=== PATIENT | female | born 1955 | race Caucasian/White ===

== ENCOUNTER 2017-09-22 05:39 | Inpatient (IN) | payer MEDICARE ==
[2017-09-22 07:38] LABS: #Basophils 0.1 thou/uL (0.0-0.2); #Eosinphils 0.4 thou/uL (0.0-0.7); #Lymphocytes 3.4 thou/uL (1.20-3.40); #Monocytes 0.5 thou/uL (0.11-0.59); #Neutrophils 6.6 thou/uL (1.40-6.50); %Basophils 0.9 % (0.0-1.0); %Eosinophils 3.8 % (0.0-10.0); %Lymphocytes 30.9 % (21.0-51.0); %Monocytes 4.3 % (0.0-10.0); Hemoglobin 12.5 g/dL (12.0-16.0); Mean Corpuscular Hemoglobin 30.4 pg (27.0-31.0); Mean Corpuscular Volume 92.2 fl (81.0-99.0); Platelet Count 185 thou/uL (130-400); RBC Distribution Width 12.8 % (11.5-14.5); Red Blood Cell (RBC) Count 4.11 mill/uL (4.20-5.40); White Blood Cell (WBC) Count 11.1 thou/uL (4.8-10.8)
[2017-09-22 08:01] LABS: ALT (SGPT) 9 U/L (8-55); AST (SGOT) 9 U/L (5-34); Albumin 3.5 g/dL (3.5-5.0); Alkaline Phosphatase 83 U/L (40-150); Anion Gap 13 mmol/L (10-20); BUN (Urea Nitrogen) 20 mg/dL (9.8-20.1); Bilirubin, Total 0.3 mg/dL (0.2-1.2); Calc. Creatinine Clearance 0 mL/min (70-130); Calcium 9.7 mg/dL (7.8-10.44); Carbon Dioxide 22 mmol/L (22-29); Chloride 105 mmol/L (98-107); Estimated GFR-MDRD 49; Globulin 2.7 g/dL (2.4-3.5); Glucose 210 mg/dL (70-105); Potassium 3.9 mmol/L (3.5-5.1); Protein, Total 6.2 g/dL (6.0-8.3); Sodium 136 mmol/L (136-145)
[2017-09-22 08:29] LABS: Bilirubin Negative (Negative); Blood, Urine Negative (Negative); Clarity CLEAR (Clear); Glucose, Urine (Dipstick) >=1000 mg/dL (Negative); Leukocyte Negative (Negative); Nitrite Negative (Negative); Protein, Urine (Dipstick) Negative (Neg-Trace); Specific Gravity, Urine 1.035 (1.002-1.036); Urobilinogen 0.2 mg/dL (0.2-1.0)
--- NOTE | 2017-09-22 09:23 | CT ---
FINAL REPORT CT ARTERIOGRAM ABDOMEN AND PELVIS WITH IV CONTRAST AND 3D MIP IMAGING CT ARTERIOGRAM RUNOFF BILATERAL LOWER EXTREMITIES WITH IV CONTRAST AND 3D MIP IMAGING: DATE: 09/22/17. TIME: Performed on an emergency basis at 0751 hours. HISTORY: Vascular disease. Decreased circulation. Bilateral leg pain. FINDINGS: Small adenoma arises from the body of the right adrenal gland. Parenchymal scarring, small cysts, an d dystrophic calcifications are associated with the right kidney. There are degenerative changes of the lumbar spine. Good contrast flow is demonstrated within the abdominal aorta. Just below the level of the renal art eries is an area of mild narrowing, less than 50%, due to the atherosclerosis and calcification. Vis ceral arteries are patent. Scattered calcification is present within the arterial structures. RIGHT: Calcification and noncalcified plaque is present. There is a moderate linked segment of moderate anton rowing, estimated at 70%, within the proximal right femoral artery. There is multifocal moderate gerardo noses along the length of the femoral artery. Distally, there is near-complete occlusion of the femor al artery with a thin string of contrast. Some collateral flow also supports contrast within the pop liteal artery where there is mild narrowing. Runoff to the right ankle is primarily via the dorsalis pedis artery. LEFT: The iliac artery is patent. There is long-segment narrowing of the common femoral artery, up to 80%. Long-segment high-grade stenosis of the proximal to mid femoral artery is up to 90%. There is mult ifocal moderate stenosis throughout the distal femoral artery and popliteal artery. Two-vessel runof f to the left ankle is primarily via the dorsalis pedis and peroneal arteries. IMPRESSION: 1. Multifocal high-grade stenosis involving the runoff vessels to each lower extremity, as detailed above. 2. Atherosclerosis. Mild narrowing of the mid abdominal aorta. POS: [facility]
[2017-09-22] MEDS ORDERED: Heparin 5,000 UNITS/ML VIAL ONE (10:28)
[2017-09-22] MEDS ORDERED: Protamine Sulfate 50 MG/5 ML VIAL ONE ×2 (10:28→13:59)
--- NOTE | 2017-09-22 10:35 | RAD ---
CHEST 1 VIEW: HISTORY: Preop. COMPARISON: 12/04/09. FINDINGS: The cardiac silhouette is magnified by projection. Pulmonary vasculature is unremarkable. Mediastin um is midline. There is no lobar consolidation or evidence of pneumothorax. IMPRESSION: No active cardiopulmonary abnormalities are demonstrated. POS: [facility]
[2017-09-22] MEDS ORDERED: CEFAZOLIN/Water 2 GM/20 ML SYRINGE ONE (10:48)
[2017-09-22] MEDS ORDERED: Fentanyl 100 MCG/2 ML VIAL ONE (11:15)
[2017-09-22] MEDS ORDERED: Phenylephrine HCL 10 MG/ML VIAL ONE (11:15)
[2017-09-22] MEDS ORDERED: Promethazine HCl 25 MG/ML VIAL PR PRN (11:25)
[2017-09-22] MEDS ORDERED: Fentanyl 100 MCG/2 ML VIAL SLOW IVP PRN (11:25)
[2017-09-22] MEDS ORDERED: Promethazine HCl 25 MG/ML VIAL IM PRN ×2 (11:25→14:59)
[2017-09-22] MEDS ORDERED: Ondansetron HCl/PF 4 MG/2 ML Vial IVP PRN ×2 (11:25→14:59)
[2017-09-22] MEDS ORDERED: HYDROcodone/Acetaminophen 5/325 mg Tablet PO PRN (11:25)
[2017-09-22] MEDS ORDERED: Acetaminophen 325 MG TAB PO PRN (11:25)
[2017-09-22] MEDS ORDERED: ISOVUE-370 76%-LOCM 1 ML ONE (13:02)
[2017-09-22] MEDS ORDERED: Dexamethasone 20 MG/5 ML VIAL ONE (14:19)
[2017-09-22] MEDS ORDERED: PHENYLEPHRINE-NS 100 MCG/ML 10 ML SYRINGE ONE (14:19)
[2017-09-22] MEDS ORDERED: Glycopyrrolate 0.2 MG/ML 5 ML SYRINGE ONE (14:19)
[2017-09-22] MEDS ORDERED: ePHEDrine/0.9% NaCl/PF SYRINGE 50 mg/10 ml ONE (14:19)
[2017-09-22] MEDS ORDERED: Heparin 10,000 UNITS/ 10 ML VIAL ONE (14:19)
[2017-09-22] MEDS ORDERED: Ondansetron HCl/PF 4 MG/2 ML Vial ONE (14:19)
[2017-09-22] MEDS ORDERED: Propofol 200 MG/20 ML VIAL ONE (14:19)
[2017-09-22] MEDS ORDERED: Lidocaine 1% PF 5 ML VIAL ONE (14:19)
[2017-09-22] MEDS ORDERED: Promethazine HCl 25 MG/ML VIAL SLOW IVP PRN (14:59)
[2017-09-22 16:20] VITALS: BMI 32.8
--- NOTE | 2017-09-22 16:24 | OP ---
DATE OF PROCEDURE: 09/22/2017 PROCEDURES PERFORMED: Urgent left external iliac/common femoral artery to suprageniculate popliteal artery with 6 mm ringed GORE-MERY, left iliofemoral and popliteal artery endarterectomies and four com partment left lower extremity fasciotomy. PREOPERATIVE DIAGNOSES: Peripheral vascular disease with acute left lower extremity ischemia. POSTOPERATIVE DIAGNOSES: Peripheral vascular disease with acute left lower extremity ischemia. SURGEON: Dr. Segundo. ANESTHESIA: General endotracheal anesthesia. INDICATIONS: The patient is a 62-year-old diabetic woman, who about 4-5 months ago underwent what yousuf leon describes as a stenting procedure in her left leg, rest pain, and discoloration of her left fifth t oe. Yesterday evening after sitting for some time, she tried to stand and found that her left leg wa s paresthetic and weak and over the course of the night this morning that progressed with redevelopme nt of purplish discoloration of her left toe. She was found to have temperature demarcation in her f oot and diminished pulses in that foot consistent with acute ischemia. CT angiography demonstrated o cclusion of her superficial femoral artery with reconstitution of the disease, suprageniculate poplit eal artery. FINDINGS: Extensive plaque in the distal external iliac and common femoral arteries as well as the s uprageniculate popliteal artery. Postoperatively, there were strong Doppler signals in the dorsalis pedis and posterior tibial. NARRATIVE REPORT: After informed consent was obtained, the patient was taken to the operating room a nd placed in supine position on the operating table. After induction of general anesthesia, the felecia ent's lower extremities were prepped and draped in sterile fashion. An oblique incision was made abo ut a fingerbreadth below and parallel to the left groin crease. The incision was carried through the subcutaneous tissue with electrocautery. The superficial femoral artery was identified and then fol lowed along the plane of Leriche deep to the inguinal ligament exposing the external iliac artery whe re heavy plaquing got less prominent. The wound was packed off and then an incision was made on the medial aspect of the distal left thigh. The popliteal space was entered and the popliteal artery was identified and then followed down to where it became relatively soft as about the level of the knee joint or just a little above. The patient was heparinized and after adequate circulation time of hep memo, proximal and distal control was established on the popliteal artery, it was opened to the soft spot and the incision sequentially extended with Gloria scissors and an 11 blade scalpel. Heavy plaqu ing in the vessel necessitated endarterectomy, plaque was everted, plaque was teased off of the vesse l wall and then everted from the vessel proximally and distally, 6 mm ringed GORE-MERY graft was broug ht to the field. It was generously beveled and anastomosed in the side to the popliteal artery with running 5-0 Prolene suture. It was then passed through the subsartorial tunnel with a tunneler devic e after ascertaining that it had adequate backbleeding and flushed adequately. The proximal and dist al control was then established on the femoral system, the common femoral artery was opened and the a rteriotomy extended proximally. The plaque had to be extracted from the common femoral and distal ex ternal iliac as well and the graft was then trimmed to length with a generous spatulation and anastom osed there with running Prolene suture. The vessels are forward and backbled. The suture line was s ecured and antegrade flows allowed first into the profunda then the SFA and then the graft. Protamin e was administered and the wound was packed off about a handbreadth below the knee. Incisions were m evans medially and laterally on the lower leg. The anterolateral compartments were entered and the fas smita incised and extending it about a scissor length proximally and distally. The superficial posteri or compartment fascia was then incised in similar fashion. Electrocautery was used to dissect throug h the musculature to expose the fascia of the deep posterior compartment, which was then incised. Th ere was no bulging of the posterior compartment musculature, but there was some minimal bulging of th e anterolateral compartment musculature. There was sufficient laxity on the subcutaneous tissue and skin to allow for loose closure with widely spaced interrupted nylon sutures. When hemostasis was ad equate, the popliteal and groin incisions were closed in layers. The subcutaneous and subcuticular V icryl with this skin closure being reinforced with running nylon. The wounds were dressed and the pa tient was taken to the recovery area in stable condition.
--- NOTE | 2017-09-22 16:46 | RAD ---
CHEST ONE VIEW: History: Central line placement. Comparison: Earlier exam on the same date. FINDINGS: Cardiac silhouette is magnified by projection. Pulmonary vasculature is upper limits of normal. Media stinum is midline. Tip of a right subclavian central venous catheter projects over the right atrium. No evidence of pneumothorax. IMPRESSION: 1. Right subclavian central venous catheter is in good radiographic position. POS: [facility]
--- NOTE | 2017-09-22 16:59 | CON ---
DATE OF CONSULTATION: 09/22/2017 REQUESTING PHYSICIAN: Dr. Ben Munson. CHIEF COMPLAINT: Left leg weakness with dusky toe. HISTORY OF PRESENT ILLNESS: The patient is a 62-year-old diabetic woman who recently moved from here to [place] and about 4 months ago underwent what she describes as what sounds like percutaneo us angioplasty and perhaps stenting of her left leg from a right groin approach. At that time, she h ad rest pain in her left foot with dusky discoloration of the fifth toe and she describes almost imme diate improvement of her symptoms and ultimately relief of the discoloration. She is back here visit ing family and last night, she was sitting at the computer for a while; when she got up, her left leg was stiff, numb, and weak overnight numbness in her left foot has progressed from her baseline pares thesias from her neuropathy and she has developed dusky discoloration of her left fifth toe again. PAST MEDICAL HISTORY: Significant for diabetes. She describes coronary stenting and she has known p eripheral vascular disease. HOME MEDICATIONS: Metformin 500 mg b.i.d., baby aspirin a day, Plavix 75 mg a day, atorvastatin 40 m g a day, Neurontin 300 mg t.i.d., and citalopram 20 mg a day. ALLERGIES: She denies any medical allergies. SOCIAL HISTORY: She says that she quit smoking in April at about the time she was admitted for i [facility] toe, even though she smelled strongly of cigarette smoke. FAMILY HISTORY: Significant for multiple first-degree relatives with diabetes and at least 1 has und ergone an amputation. REVIEW OF SYSTEMS: Notable for some shortness of breath, but she says that improved after quitting s moking. She denies any chest pain. She reports 2 previous episodes of her vision going all white an d then resolving. She denies any other focal speech, eye or extremity symptoms to suggest transient ischemic attacks (TIAs). She at baseline has some dense paresthesias in her feet. PHYSICAL EXAMINATION: GENERAL: She is an obese weathered looking woman who appears older than her stated age. Heart rate is 83. VITAL SIGNS: Blood pressure 125/71, respirations 20, temperature is 98.1, room air O2 sats are 97%. She weighs 113 kilograms. HEENT: She has a slight list to her speech, which she and her brother attribute to her not having de ntures in place. NECK: She has no JVD, no carotid bruits. LUNGS: Chest is clear to auscultation. When I asked her to blow out hard against my hand, she had c learly decreased force of exhalation. CARDIOVASCULAR: She has regular rate and rhythm with a soft systolic murmur heard loudest at the rig ht upper sternal border. ABDOMEN: Obese, soft, and nontender without any obvious bruits. EXTREMITIES: She has easily palpable radial pulses bilaterally. Both femoral pulses appear perhaps slightly diminished, although it is somewhat hard to tell because of her body habitus, they are clear ly palpable. I am not able to palpate popliteal or posterior tibial pulses on either side. Her righ t dorsalis pedis pulse is faintly palpable, her left is not. The Doppler signals in her left foot ar e noticeably weaker than on the right. She has no clear-cut temperature demarcation until one reache s the left foot which is noticeably cooler than the right. The left fifth toe has purplish discolora tion, the compartments appear to be soft and nontender, but there is perhaps a little bit of stiffnes s at the ankle and passive dorsiflexion. She has decreased sensation to both feet. She describes th at the right side is feeling like pressure, but her left foot is virtually anesthetic. She has no ob vious edema. LABORATORY DATA: White count 11.1, hemoglobin 12.5, hematocrit 37.9, platelets 185,000. INR is 1.0. Electrolytes were normal. Glucose was 210. BUN 20, creatinine 1.14. At the [place] [facility] a few hours earlier, BUN is 21, creatinine 1.46. LFTs were normal. Calcium, protein, and albumin wer e normal. A lumbar CT scan done describes a 2.2 cm abdominal aortic aneurysm and some bulging of the L4-L5 disk without any stenosis of the canal. Head CT showed no acute abnormalities. IMPRESSION AND RECOMMENDATIONS: I suspect the patient had acute thrombosis of an arterial stent belo w the inguinal ligament. A CTA has been ordered and pending hydration. Hopefully, her anatomy will be amenable to a fem-pop grafting. Because of the duration of ischemia, I think it may be prudent to consider fasciotomy.
--- NOTE | 2017-09-22 17:27 | RAD ---
CHEST ONE VIEW: History: Chest pain. Central line placement. Comparison: Earlier the same date. FINDINGS: Cardiac silhouette is magnified and enlarged. Pulmonary vasculature is upper limits of normal. The ti p of a right subclavian central venous catheter now overlies the superior vena cava. No evidence of p neumothorax. IMPRESSION: Tip of the right subclavian central venous catheter now overlies the superior vena cava. Other findin gs are stable. POS: [facility]
[2017-09-22] MEDS: Sodium Chloride 0.9% 1,000 ML IV SCH ×2 (18:33→21:06)
[2017-09-22] MEDS ORDERED: Insulin Regular 300 UNITS/3 ML VIAL ONE (21:26)
[2017-09-22] MEDS: Insulin Regular 300 UNITS/3 ML VIAL SC PRN (21:34)
[2017-09-23] MEDS: Insulin Regular 300 UNITS/3 ML VIAL SC PRN ×2 (05:19→18:14)
[2017-09-23] MEDS: Sodium Chloride 0.9% 1,000 ML IV SCH (05:21)
[2017-09-23] MEDS: Clopidogrel Bisulfate 75 MG TAB PO SCH (08:01)
--- NOTE | 2017-09-23 08:35 | RAD ---
CHEST 1 VIEW: COMPARISON: 09/22/17. HISTORY: COPD and central line placement. FINDINGS: Portable semiupright chest radiograph demonstrates a left-sided central venous catheter, unchanged in position. Normal cardiac silhouette. The pulmonary vessels and hilum are normal. Costophrenic ang les are clear. No masses or consolidation. No pneumothorax or osseous abnormalities. IMPRESSION: Left-sided central venous catheter, unchanged in position. No pneumothorax. No significant change. POS: [facility]
[2017-09-23] MEDS ORDERED: FLU VACC QS2017-18 36 mo. & older 0.5 ML SYRINGE IM ONE (09:00)
[2017-09-23] MEDS: HYDROcodone/Acetaminophen 5/325 mg Tablet PO PRN ×2 (09:18→21:14)
[2017-09-23] MEDS ORDERED: Insulin Regular 300 UNITS/3 ML VIAL ONE (18:10)
[2017-09-24] MEDS: Insulin Regular 300 UNITS/3 ML VIAL SC PRN (06:15)
[2017-09-24 07:46] VITALS: BP 151/43; TEMP 98.4
[2017-09-24] MEDS: HYDROcodone/Acetaminophen 5/325 mg Tablet PO PRN (08:26)
[2017-09-24] MEDS: Clopidogrel Bisulfate 75 MG TAB PO SCH (08:26)
--- NOTE | 2017-09-24 09:02 | DIS ---
DATE OF ADMISSION: 09/22/2017 DATE OF DISCHARGE: 09/24/2017 PRINCIPAL DIAGNOSES: Peripheral vascular disease with acute ischemia left lower extremity. SECONDARY DIAGNOSIS: Diabetes mellitus. PROCEDURES PERFORMED: Urgent left external iliac/common femoral artery to suprageniculate popliteal artery with a 6 mm ringed [place]al with left iliofemoral and popliteal artery endarterectomies and le ft lower extremity 4-compartment fasciotomy 09/22/2017. HISTORY OF PRESENT ILLNESS/HOSPITAL COURSE: The patient is a 62-year-old diabetic woman with periphe ral vascular disease who claims to have quit smoking last April at about the time that she was ad mitted at another institution for the development of rest pain and purplish discoloration of her left fifth toe. She says that during that hospitalization she underwent stenting of a vessel in her left lower extremity with excellent symptomatic results and she was doing well until the evening prior to admission, when upon standing from a protracted period of sitting she noted that her left leg was st iff and more paresthetic than her normal baseline. Overnight the leg got weaker and number and purpl tha discoloration recurred in the left fifth toe and she presented to the hospital. She initially pr esented at a nearby clinic and was transferred to [facility] in [place]. CTA demonstrated superficial femoral artery occlusion in the left leg with reconstitution of the suprageniculate popliteal artery. She was taken to the operating room that day and underwent femoral popliteal bypass grafting. The extent of plaque necessitated local endarterectomies both the iliofemoral and popliteal levels. Devika use of the duration of ischemia and some subtle stiffness of the ankle it was opted to perform a fasc iotomy at the same setting. There was some minimal bulging of the anterolateral musculature, but the musculature of all 4 compartments appeared viable. There was enough laxity in the skin to allow for at least closure of the skin over the fasciotomies. She had an uneventful overnight stay in the ICU and was transferred out the following day. She was successfully weaned off of her oxygen and she be roland ambulating with only a modest amount of difficulty. She is being discharged home now on postoper ative day #2 with a prescription for Vicodin as needed for pain and to resume her home medications wh ich include aspirin and Plavix. I will plan on seeing her in the office at roughly the 2 week postop justen for a wound check and removal of her skin sutures.
--- NOTE | 2017-09-28 18:04 | EKG ---
Test Reason : Blood Pressure : / mmHG Vent. Rate : 093 BPM Atrial Rate : 093 BPM P-R Int : 168 ms QRS Dur : 084 ms QT Int : 374 ms P-R-T Axes : 073 040 056 degrees QTc Int : 465 ms Normal sinus rhythm Possible Left atrial enlargement Cannot rule out Inferior infarct , age undetermined Abnormal ECG Confirmed by VAL ZAIDI, CANDY ([id number]), loan expeditor DANIELA FAIRCHILD ([id number]) on 09/28/2017 6:03:30 PM Referred By: VAL Confirmed By:CANDY NEAL MD
== END 2017-09-24 09:36 | disposition home or self-care (01) | DRG 271 ==
LOC: ERS 05:39 → 2SE 10:07 → SDC 11:03 → CCU 16:32 → 2SE 09-23 08:57
PROVIDERS: ADMIT Thoracic Surgery (Cardiothoracic Vascular Surgery); ATTEND Thoracic Surgery (Cardiothoracic Vascular Surgery)
PROC: 041L0ZL Bypass Left Femoral Artery to Popliteal Artery, Open Approach (ICD-10-PCS; principal; 2017-09-22)
PROC: 04CJ0ZZ Extirpation of Matter from Left External Iliac Artery, Open Approach (ICD-10-PCS; 2017-09-22)
PROC: 041 Lower Arteries, Bypass (ICD-10-PCS; 2017-09-22)
PROC: 04CN0ZZ Extirpation of Matter from Left Popliteal Artery, Open Approach (ICD-10-PCS; 2017-09-22)
PROC: 04UN0JZ Supplement Left Popliteal Artery with Synthetic Substitute, Open Approach (ICD-10-PCS; 2017-09-22)
PROC: 04CL0ZZ Extirpation of Matter from Left Femoral Artery, Open Approach (ICD-10-PCS; 2017-09-22)
PROC: 0KNT0ZZ Release Left Lower Leg Muscle, Open Approach (ICD-10-PCS; 2017-09-22)
PROC: 0KNT0ZZ Release Left Lower Leg Muscle, Open Approach (ICD-10-PCS; 2017-09-22)
PROC: 0KNT0ZZ Release Left Lower Leg Muscle, Open Approach (ICD-10-PCS; 2017-09-22)
PROC: 02HV33Z Insertion of Infusion Device into Superior Vena Cava, Percutaneous Approach (ICD-10-PCS; 2017-09-22)
DX: E11.51 Type 2 diabetes mellitus with diabetic peripheral angiopathy without gangrene (principal); M79.A22 Nontraumatic compartment syndrome of left lower extremity; E66.9 Obesity, unspecified; J44.9 Chronic obstructive pulmonary disease, unspecified; Z68.32 Body mass index [BMI] 32.0-32.9, adult; I70.202 Unspecified atherosclerosis of native arteries of extremities, left leg; Z87.891 Personal history of nicotine dependence; Z95.820 Peripheral vascular angioplasty status with implants and grafts; Z95.5 Presence of coronary angioplasty implant and graft; Z79.01 Long term (current) use of anticoagulants; Z79.84 Long term (current) use of oral hypoglycemic drugs; Z79.82 Long term (current) use of aspirin; I25.10 Atherosclerotic heart disease of native coronary artery without angina pectoris; E78.5 Hyperlipidemia, unspecified; F41.9 Anxiety disorder, unspecified; F32.9 Major depressive disorder, single episode, unspecified
CPT/HCPCS: 36415; 36416; 51701; 71045; 75635; 81003; 86850; 86900; 86901; 90471; 90682; 90732; 93005; 94760; 96360; 96361; A4353; G0008; G0009; G8978-GP-CJ; G8979-GP-CJ; G8980-GP-CJ; J1100; J1642; J1644; J1815; J2001; J2370; J2405; J2704; J2720; J3010; Q2036

== ENCOUNTER 2017-12-21 15:05 | Emergency (ER) | payer MEDICARE ==
--- NOTE | 2017-12-21 15:56 | RAD ---
3 VIEWS LEFT ANKLE: Date: 12/21/17 HISTORY: Trauma and injury to left ankle. FINDINGS: AP, lateral, and oblique views of left ankle obtained. Images demonstrate soft tissue swelling lateral to the left ankle. No evidence of acute fractures or bony lesions seen. IMPRESSION: Soft tissue swelling along the lateral aspect of the left ankle. No acute bony lesions seen. POS: [facility]
== END 2017-12-21 15:56 | disposition home or self-care (01) ==
LOC: ERS 15:05
DX: S93.402A Sprain of unspecified ligament of left ankle, initial encounter (principal); L03.116 Cellulitis of left lower limb; E11.42 Type 2 diabetes mellitus with diabetic polyneuropathy; E78.5 Hyperlipidemia, unspecified; E66.9 Obesity, unspecified; J44.9 Chronic obstructive pulmonary disease, unspecified; F32.9 Major depressive disorder, single episode, unspecified; F41.9 Anxiety disorder, unspecified; F17.210 Nicotine dependence, cigarettes, uncomplicated; I25.10 Atherosclerotic heart disease of native coronary artery without angina pectoris; X50.0XXA Overexertion from strenuous movement or load, initial encounter

== ENCOUNTER 2018-06-08 23:37 | Inpatient (IN) | payer MEDICARE ==
[2018-06-09] MEDS ORDERED: HYDROcodone/Acetaminophen 5/325 mg Tablet ONE (00:10)
[2018-06-09 01:01] LABS: #Eosinphils 0.2 thou/uL (0.0-0.7); #Monocytes 0.5 thou/uL (0.11-0.59); #Neutrophils 8.9 thou/uL (1.40-6.50); %Basophils 0.3 % (0.0-1.0); %Eosinophils 1.9 % (0.0-10.0); %Lymphocytes 16.9 % (21.0-51.0); %Monocytes 4.2 % (0.0-10.0); %Neutrophils 76.7 % (42.0-75.0); Hemoglobin 13.7 g/dL (12.0-16.0); Mean Corpuscular HGB CONC 31.8 g/dL (32.0-36.0); Mean Corpuscular Hemoglobin 29.4 pg (27.0-31.0); Mean Corpuscular Volume 92.4 fL (78.0-98.0); Mean Platelet Volume 9.1 fL (7.4-10.4); Platelet Count 223 thou/uL (130-400); RBC Distribution Width 12.8 % (11.5-14.5); Red Blood Cell (RBC) Count 4.66 mill/uL (4.20-5.40); White Blood Cell (WBC) Count 11.6 thou/uL (4.8-10.8)
[2018-06-09] MEDS ORDERED: Morphine 4 MG/ML VIAL ONE (01:09)
[2018-06-09 01:10] LABS: PTT 25.7 SEC (22.9-36.1); Prothrombin Time 13.1 SEC (12.0-14.7)
[2018-06-09 01:20] LABS: ALT (SGPT) 11 U/L (8-55); AST (SGOT) 8 U/L (5-34); Albumin 4.1 g/dL (3.4-4.8); Alkaline Phosphatase 103 U/L (40-150); Anion Gap 15 mmol/L (10-20); BUN (Urea Nitrogen) 21 mg/dL (9.8-20.1); Bilirubin, Total 0.6 mg/dL (0.2-1.2); Calc. Creatinine Clearance 0 mL/min (70-130); Calcium 10.2 mg/dL (7.8-10.44); Carbon Dioxide 25 mmol/L (23-31); Chloride 102 mmol/L (98-107); Estimated GFR-MDRD 42; Globulin 3.2 g/dL (2.4-3.5); Potassium 5.2 mmol/L (3.5-5.1); Protein, Total 7.3 g/dL (6.0-8.3); Sodium 137 mmol/L (136-145)
[2018-06-09 01:25] LABS: CKMB 1.9 ng/mL (0-6.6); Glucose 557 mg/dL (80-115); Troponin I Less than 0.010 ng/mL (< 0.028)
[2018-06-09] MEDS ORDERED: Sodium Chloride 0.9% 1,000 ML IV SCH (03:03)
[2018-06-09] MEDS ORDERED: Dextrose 5% in Water 1,000 ML IV PRN (03:03)
[2018-06-09] MEDS ORDERED: Ondansetron ODT 4 MG TAB PO PRN (03:03)
[2018-06-09] MEDS ORDERED: Dextrose 50% Abboject 50 ML SYRINGE SLOW IVP PRN (03:03)
[2018-06-09] MEDS ORDERED: Morphine 2 MG/ML SYRINGE IVP PRN (03:03)
[2018-06-09] MEDS ORDERED: hydrALAZINE 20 MG/ML VIAL SLOW IVP PRN (03:03)
[2018-06-09] MEDS ORDERED: Ondansetron PF 4 MG/2 ML Vial IVP PRN (03:03)
[2018-06-09] MEDS: Sodium Chloride 0.9% 1,000 ML IV SCH ×3 (03:50→20:05)
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
[2018-06-09 04:19] VITALS: BMI 34.3
[2018-06-09 05:31] LABS: #Eosinphils 0.3 thou/uL (0.0-0.7); #Lymphocytes 2.6 thou/uL (1.20-3.40); #Monocytes 0.5 thou/uL (0.11-0.59); #Neutrophils 8.4 thou/uL (1.40-6.50); %Basophils 0.4 % (0.0-1.0); %Eosinophils 2.6 % (0.0-10.0); %Lymphocytes 22.3 % (21.0-51.0); %Monocytes 4.4 % (0.0-10.0); %Neutrophils 70.3 % (42.0-75.0); Hemoglobin 11.1 g/dL (12.0-16.0); Mean Corpuscular HGB CONC 31.6 g/dL (32.0-36.0); Mean Corpuscular Hemoglobin 29.1 pg (27.0-31.0); Mean Corpuscular Volume 92.1 fL (78.0-98.0); Mean Platelet Volume 9.2 fL (7.4-10.4); Platelet Count 184 thou/uL (130-400); RBC Distribution Width 12.6 % (11.5-14.5); Red Blood Cell (RBC) Count 3.81 mill/uL (4.20-5.40); White Blood Cell (WBC) Count 11.9 thou/uL (4.8-10.8)
[2018-06-09 05:45] LABS: Anion Gap 12 mmol/L (10-20); BUN (Urea Nitrogen) 19 mg/dL (9.8-20.1); Calc. Creatinine Clearance 76 mL/min (70-130); Calcium 9.1 mg/dL (7.8-10.44); Carbon Dioxide 26 mmol/L (23-31); Chloride 104 mmol/L (98-107); Estimated GFR-MDRD 50; Glucose 404 mg/dL (80-115); Potassium 4.6 mmol/L (3.5-5.1); Sodium 137 mmol/L (136-145)
[2018-06-09] MEDS: Ketorolac Tromethamine 30 MG/ML VIAL IVP SCH ×3 (06:36→18:11)
[2018-06-09] MEDS: Insulin Regular 300 UNITS/3 ML VIAL SC PRN ×3 (06:37→23:47)
[2018-06-09] MEDS: Acetaminophen 1,000 MG in Premix Bag 1 BAG IVPB SCH ×4 (06:38→23:47)
[2018-06-09] MEDS ORDERED: CEFAZOLIN/Water 2 GM/20 ML SYRINGE SLOW IVP SCH ×2 (07:45→15:15)
[2018-06-09] MEDS ORDERED: CEFAZOLIN 2 GM/50 ML-DEXTROSE 2 GM in Premix Bag 1 BAG IVPB SCH (07:45)
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
[2018-06-09] MEDS: Famotidine 20 MG TAB PO SCH ×2 (08:35→20:04)
--- NOTE | 2018-06-09 09:07 | RAD ---
CHEST 1 VIEW: HISTORY: Chest pain. Trauma. COMPARISON: Radiograph of 09/23/2017. FINDINGS: Lungs are clear. No pneumothorax or effusion. Cardiac silhouette and mediastinal contours are withi n normal limits. IMPRESSION: No acute intrathoracic abnormality. POS: [facility]
[2018-06-09 09:08] LABS: Platelet Count 178 thou/uL (130-400)
--- NOTE | 2018-06-09 10:18 | PRG ---
DATE OF SERVICE: 06/09/2018 SUBJECTIVE: Ms. Menendez is a 63-year-old woman, who sustained left tibia plateau fracture, close to [facility] last night. This morning, she reports adequate pain control. PHYSICAL EXAMINATION: VITAL SIGNS: Blood pressure 142/72, pulse 81, respiratory rate is 16, temperature is 98.4 degrees Fa hrenheit, oxygen saturation is 95% on 2 liters by nasal cannula oxygen. HEART: Reveals regular rate and rhythm. No murmurs or gallops auscultated. LUNGS: Clear to auscultation bilaterally. Breathing is regular and unlabored. ABDOMEN: Soft, nontender, nondistended. EXTREMITIES: Reveal 2+ radial and pedal pulses bilaterally. No ankle edema is present. NEUROLOGIC EXAMINATION: Reveals no focal deficits present. LABORATORY FINDINGS: Reveal a stable CBC with 11,900 white blood cells, hemoglobin and hematocrit 11 .1 and 35.1 respectively. Platelet count is 184,000. Metabolic profile: Sodium 137, potassium is 4 .6, chloride is 104, bicarbonate 26, BUN 19, creatinine is 1.11, glucose 404. IMPRESSION: 1. Acute left tibia plateau fracture. 2. Acute hyperglycemia with poorly-controlled type 2 diabetes mellitus. PLAN: Better glucose control. The patient is stable to undergo repair of the tibia plateau fracture per Orthopedic Surgery.
[2018-06-09] MEDS ORDERED: CEFAZOLIN 2 GM/50 ML BAG ONE (13:03)
[2018-06-09] MEDS ORDERED: Fentanyl 100 MCG/2 ML VIAL ONE ×2 (14:07→15:33)
[2018-06-09] MEDS ORDERED: Bupivacaine PF 0.5% 30 ML VIAL ONE (14:44)
[2018-06-09] MEDS ORDERED: Dexamethasone 20 MG/5 ML VIAL ONE (15:16)
[2018-06-09] MEDS ORDERED: ePHEDrine/0.9% NaCl/PF SYRINGE 50 mg/10 ml ONE (15:16)
[2018-06-09] MEDS ORDERED: PHENYLEPHRINE-NS 100 MCG/ML 10 ML SYRINGE ONE (15:16)
[2018-06-09] MEDS ORDERED: PROPOFOL 200 MG/20 ML VIAL ONE (15:16)
[2018-06-09] MEDS ORDERED: Lidocaine 1% PF 5 ML VIAL ONE (15:16)
[2018-06-09] MEDS ORDERED: Ondansetron PF 4 MG/2 ML Vial ONE (15:16)
[2018-06-09] MEDS ORDERED: Promethazine HCl 25 MG/ML VIAL SLOW IVP PRN (15:26)
[2018-06-09] MEDS ORDERED: Ondansetron HCl/PF 4 MG/2 ML Vial IVP PRN (15:26)
[2018-06-09] MEDS ORDERED: Promethazine HCl 25 MG/ML VIAL IM PRN (15:26)
--- NOTE | 2018-06-09 16:41 | RAD ---
INTRAOPERATIVE FLUOROSCOPIC IMAGES OF LEFT KNEE: Date: 06/09/18 HISTORY: Open reduction and internal fixation left knee. FINDINGS: Three intraoperative fluoroscopic images of the left knee are submitted for interpretation. Comparison is made with study on 06/08/18. There is a medial side plate and multiple screws transfixing the previously noted comminuted fracture involving the proximal left tibia and extending into the lateral tibial plateau in the region of the tibial spines. Alignment of the fracture fragments does appear improved on the provided images. Surg ical clips are seen overlying the left knee. IMPRESSION: Internal fixation proximal left tibial fracture. POS: [facility]
--- NOTE | 2018-06-09 16:46 | OP ---
DATE OF PROCEDURE: 06/09/2018 PREOPERATIVE DIAGNOSIS: Disrupted left tibial plateau fracture with posteromedial pattern. POSTOPERATIVE DIAGNOSIS: Disrupted left tibial plateau fracture with posteromedial pattern. COMPLICATIONS: None. ESTIMATED BLOOD LOSS: 50 mL. SURGEON: Mic Mark M.D. PRODUCTION SUPPORT ANALYST: Mj Lugo PA-C. IMPLANTS: Synthes posteromedial plate with multiple locking and nonlocking screws were used. INDICATIONS: Ms. Menendez is a 63-year-old female who fell. She fractured the posteromedial aspect of her tibial plateau. She was indicated for open reduction and internal fixation to restore anatomic a lignment and promote healing. Risks have been reviewed in detail. She elected to proceed with the o peration. DESCRIPTION OF PROCEDURE: Ms. Menendez was identified in the preoperative holding area. Her correct ex tremity was marked. She was carried to the operating room. She was positioned supine. General anes thesia was induced. A multidisciplinary timeout was performed. The left lower extremity was prepped and draped in sterile fashion. We began the procedure with a posteromedial approach to the tibia. We dissected down to the subcutan eous tissues and opened the fascia. We then opened the distal periosteum. We then reflected the per iosteum from the posteromedial tibial region. We carefully retracted the soft tissues, protecting th e neurovascular structures. At this point, we applied our posteromedial plate. We pulled traction a nd reduced the fracture using reduction techniques and x-ray to confirm this. We held this with K-wi re fixation. Next, we placed a nonlocking screw distally. We followed this by placing multiple prox imal locking screws and distal locking screws. We took final images confirming that we had good redu ction. At this point, we thoroughly irrigated with copious lavage. We then closed with 0 Vicryl sut ure, 2-0 Vicryl suture and corrina for the skin. A sterile dressing was applied. The patient was ta james to the recovery room in good condition without complication.
[2018-06-10] MEDS ORDERED: Cefepime 2 GM in Sodium Chloride 0.9% 100 ML IVPB SCH (01:00)
[2018-06-10] MEDS: CEFAZOLIN 2 GM/50 ML-DEXTROSE 2 GM in Premix Bag 1 BAG IVPB SCH ×2 (01:55→08:45)
[2018-06-10] MEDS: Sodium Chloride 0.9% 1,000 ML IV SCH (05:16)
[2018-06-10] MEDS: Acetaminophen 325 MG TAB PO PRN ×2 (06:06→16:10)
[2018-06-10 06:15] LABS: #Lymphocytes 1.1 thou/uL (1.20-3.40); #Monocytes 0.3 thou/uL (0.11-0.59); #Neutrophils 9.8 thou/uL (1.40-6.50); %Basophils 0.1 % (0.0-1.0); %Eosinophils 0.1 % (0.0-10.0); %Lymphocytes 9.7 % (21.0-51.0); Hemoglobin 11.1 g/dL (12.0-16.0); Mean Corpuscular Hemoglobin 29.6 pg (27.0-31.0); Mean Corpuscular Volume 92.5 fL (78.0-98.0); Mean Platelet Volume 9.3 fL (7.4-10.4); Platelet Count 179 thou/uL (130-400); RBC Distribution Width 12.1 % (11.5-14.5); Red Blood Cell (RBC) Count 3.74 mill/uL (4.20-5.40); White Blood Cell (WBC) Count 11.3 thou/uL (4.8-10.8)
[2018-06-10 06:19] LABS: Anion Gap 13 mmol/L (10-20); BUN (Urea Nitrogen) 16 mg/dL (9.8-20.1); Calc. Creatinine Clearance 79 mL/min (70-130); Calcium 8.6 mg/dL (7.8-10.44); Carbon Dioxide 24 mmol/L (23-31); Chloride 103 mmol/L (98-107); Estimated GFR-MDRD 52; Glucose 347 mg/dL (80-115); Magnesium 1.9 mg/dL (1.6-2.6); Phosphorus 3.1 mg/dL (2.3-4.7); Potassium 4.7 mmol/L (3.5-5.1); Sodium 135 mmol/L (136-145)
[2018-06-10] MEDS: Insulin Regular 300 UNITS/3 ML VIAL SC PRN ×3 (06:42→16:07)
[2018-06-10] MEDS: Senokot 8.6 MG TAB PO SCH ×2 (08:45→21:20)
[2018-06-10] MEDS: Famotidine 20 MG TAB PO SCH ×2 (08:45→21:20)
[2018-06-10] MEDS: Polyethylene Glycol 3350 17 GM Packet PO SCH (08:45)
[2018-06-10] MEDS ORDERED: Morphine 2 MG/ML SYRINGE IVP PRN (09:00)
--- NOTE | 2018-06-10 14:14 | RAD ---
LEFT KNEE FOUR VIEWS: HISTORY: Trauma. COMPARISON: None. FINDINGS: Large joint effusion. There is a fracture from the lateral tibial plateau extending to the metaphysi s, along with a transversely oriented fracture of the tibial metaphysis. There is widening of the medial and lateral joint spaces. IMPRESSION: Lateral tibial plateau fracture at the sagittal split with associated transversely oriented metaphyse al fracture. POS: [facility]
[2018-06-10] MEDS: metFORMIN XR 500 MG TAB PO SCH (21:20)
[2018-06-10] MEDS: Enoxaparin Sodium 40 MG/0.4 ML SYRINGE SC SCH (21:21)
[2018-06-10] MEDS: Insulin Glargine 40 UNITS in Pre-Filled Syringe 1 EACH SC SCH (21:25)
--- NOTE | 2018-06-10 23:23 | PRG ---
DATE OF SERVICE: 06/10/2018 SUBJECTIVE: This is a 63-year-old female, found to have left tibial plateau fracture, postop day #[address] Mark. This morning, the patient reports adequate pain control. The patient participated in PT/OT. No complaints or concerns. OBJECTIVE: VITAL SIGNS: Temperature 97.9, pulse 82, respirations 18, O2 saturation 96% on room air, BP 150/87. CARDIOVASCULAR: Regular rate and rhythm. No murmurs, rubs, or gallops. RESPIRATORY: Clear to auscultation bilaterally. Symmetrical chest rise bilaterally, nonlabored breathing. ABDOMEN: Soft, nontender, nondistended. EXTREMITIES: 2+ radial and pedal pulses bilaterally. No ankle edema present. NEUROLOGIC: Nonfocal. PSYCHIATRIC: Normal mood and affect. LABORATORY DATA: WBC 11.3, hemoglobin 11.1, hematocrit 34.6, platelets 179, 000. Sodium 135, potassium 4.7, chloride 103, BUN 16, creatinine 1.07, glucose 347, calcium, phosphorus, and magnesium within normal limits. ASSESSMENT: 1. Acute left tibial plateau fracture, repaired. 2. Acute hyperglycemia with poorly controlled type 2 diabetes mellitus. PLAN: We will continue pain control management with p.o. medications. We will continue PT/OT. The patient's glucose continues to be difficult. We will restart home medications of Lantus and metformin. We will follow up with Orthopedic Surgery for recommendations. Case management is working with the patient for discharge planning. Patient was seen and examined by Dr. George at the bedside during morning rounds. Plan discussed with patient and . Questions were answered. MACHELLE
--- NOTE | 2018-06-11 02:59 | DIS-2 ---
DATE OF ADMISSION: 06/09/2018 DATE OF DISCHARGE: 06/17/2018 RESIDENT: Christin Ibanez MD SUPERVISING ATTENDING: Dr. George. CONSULTATIONS: Case management, PT/OT, Orthopedic Surgery. PROCEDURES: Fixation of left tibial plateau fracture. PRIMARY DIAGNOSIS: Left tibial plateau fracture. SECONDARY DIAGNOSES: Uncontrolled diabetes type 2, peripheral vascular disease , coronary artery disease, chronic obstructive pulmonary disease, hyperlipidemia , anxiety, and depression. DISCHARGE MEDICATIONS: 1. Tylenol Regular Strength 650mg oral every 6 hours as needed. 2. Proair HFA 2 puff inhalation every 6 hrs as needed 3. Albuterol sulfate neb 1.25 mg nebulizer every 6 hours as needed 4. Lipitor 40mg oral daily 5. Celexa 20 mg oral daily 6. Aspirin 81mg oral every morning 7. Plavix 75 mg oral every morning 8. [place] 5/325 2 tab oral every 4 hours as needed 9. Insulin - Lantus 40 units sub-q twice daily 10. Neurontin 2 tab oral twice daily 11. Metformin 500 mg oral twice daily with meals DISCONTINUED MEDICATIONS: None. HISTORY OF PRESENT ILLNESS/HOSPITAL COURSE: This is a 63-year-old female who hit her knee against a door jamb or dresser, patient is unsure. She felt a sudden pop in her left knee and was unable to bear weight, so she felt a sudden pop in her knee and was unable to bear weight. She then iced her knee and took ibuprofen overnight. Patient presented to the emergency department due to continued pain and inability to bear weight on the left leg. Patient was found to have a left tibial plateau fracture. Orthopedics was consulted and patient underwent fixation of her tibial fracture on 06/09/[address] Mark with no complications. Patient participated with PT/OT. Patient's sugar remained elevated throughout her stay in the 200s to 300s. Her home medications were restarted. Patient's vital signs have continued to be monitored throughout her stay. Patient tolerated consistent carbohydrate diet. Recommended for patient to follow up with PCP for better glucose control. Patient had good pain control through her stay. Patient is tolerating diet, ambulating with PT, and had return of bowel function. Patient's discharged was delayed as she was at first declined for inpatient rehab then approved by her insurance for in patient rehab. Patient lives 60 miles from the nearest hospital. Patient will benefit from inpatient rehab while she gains strength to compensate for her injury. On the day of discharge the patient was seen and evaluated by Dr. George. The plan was discussed with the patient and Dr. George who are in agreement. DISPOSITION: Stable. DISCHARGE INSTRUCTIONS: 1. Location: Inpatient rehab 2. Diet: Consistent carbohydrate. 3. Activity: Nonweightbearing on left lower extremity. 4. Follow up with Dr. Mark in 2 weeks. Follow up with PCP within 2 weeks. MACHELLE
[2018-06-11] MEDS: Insulin Regular 300 UNITS/3 ML VIAL SC PRN ×3 (06:32→16:27)
[2018-06-11] MEDS ORDERED: Acetaminophen 325 MG TAB PO SCH (08:30)
[2018-06-11] MEDS: Senokot 8.6 MG TAB PO SCH ×2 (08:59→21:45)
[2018-06-11] MEDS: metFORMIN XR 500 MG TAB PO SCH ×2 (08:59→21:45)
[2018-06-11] MEDS: Famotidine 20 MG TAB PO SCH ×2 (08:59→21:43)
[2018-06-11] MEDS: Polyethylene Glycol 3350 17 GM Packet PO SCH (08:59)
[2018-06-11] MEDS: Insulin Glargine 40 UNITS in Pre-Filled Syringe 1 EACH SC SCH ×2 (09:00→21:44)
[2018-06-11] MEDS: Gabapentin 300 MG CAP PO SCH ×2 (09:48→21:44)
[2018-06-11] MEDS: Clopidogrel Bisulfate 75 MG TAB PO SCH (09:49)
[2018-06-11] MEDS: Citalopram 20 MG TAB PO SCH (09:49)
[2018-06-11] MEDS: Atorvastatin Calcium 40 MG TAB PO SCH (09:49)
[2018-06-11] MEDS: HYDROcodone/Acetaminophen 5/325 mg Tablet PO PRN (09:49)
[2018-06-11] MEDS: Enoxaparin Sodium 40 MG/0.4 ML SYRINGE SC SCH (21:43)
--- NOTE | 2018-06-11 23:28 | PRG-2 ---
DATE OF SERVICE: 06/11/2018 RESIDENT: Christin Ibanez M.D. ATTENDING: Ralph George D.O. SUBJECTIVE: This is a 63-year-old female found to have left tibial plateau fracture, postoperative d ay number [address] Mark. This morning, the patient reports adequate pain contro l. Overnight, she did require 1 dose of morphine as she got up to go to the commode by herself and s tepped on her leg wrong. The patient continues to participate in physical and occupational therapy. The patient reported pain 7/10 on exam. OBJECTIVE: VITAL SIGNS: Temperature 97.9, pulse 88, respirations 14, O2 saturation 97% on 2 liters nasal cannul a, BP 122/75. HEENT: Normocephalic, atraumatic. Pupils equal, round and reactive to light. Extraocular muscles i ntact. No scleral icterus present. NECK: Trachea midline, supple. CARDIOVASCULAR: Regular rate and rhythm. No murmurs, rubs or gallops. RESPIRATORY: Clear to auscultation bilaterally. Symmetrical chest rise bilaterally. Nonlabored laura athing. ABDOMEN: Soft, nontender, nondistended. EXTREMITIES: 2+ radial and pedal pulses bilaterally. No edema present bilaterally. NEUROLOGIC: Nonfocal exam. PSYCHIATRIC: Normal mood and affect. LABORATORY DATA: No new labs for today. ASSESSMENT: 1. Acute left tibial plateau fracture, repaired. 2. Acute hyperglycemia with poorly controlled diabetes mellitus type 2. PLAN: We will continue pain control management with p.o. medications as this is what the patient yesica l be discharged on. We will continue physical and occupational therapy. The patient's glucose will continue to be monitored and her home regimen of diabetes medications has been restarted. The patien t is ready for discharge and is awaiting case management to confirm insurance for placement options. The patient was seen and examined by Dr. George at the bedside during morning rounds today. Plan was discussed with the patient and at the bedside. All questions were answered by Dr. George.
[2018-06-12] MEDS: Citalopram 20 MG TAB PO SCH (08:58)
[2018-06-12] MEDS: Gabapentin 300 MG CAP PO SCH ×2 (08:58→21:24)
[2018-06-12] MEDS: Famotidine 20 MG TAB PO SCH ×2 (08:58→21:25)
[2018-06-12] MEDS: Atorvastatin Calcium 40 MG TAB PO SCH (08:58)
[2018-06-12] MEDS: Senokot 8.6 MG TAB PO SCH ×2 (08:58→21:25)
[2018-06-12] MEDS: metFORMIN XR 500 MG TAB PO SCH ×2 (08:58→21:25)
[2018-06-12] MEDS: Clopidogrel Bisulfate 75 MG TAB PO SCH (08:59)
[2018-06-12] MEDS: Insulin Glargine 40 UNITS in Pre-Filled Syringe 1 EACH SC SCH ×2 (08:59→21:25)
[2018-06-12] MEDS: Polyethylene Glycol 3350 17 GM Packet PO SCH (08:59)
[2018-06-12] MEDS: Insulin Regular 300 UNITS/3 ML VIAL SC PRN ×3 (11:46→21:26)
[2018-06-12] MEDS: HYDROcodone/Acetaminophen 5/325 mg Tablet PO PRN (17:05)
--- NOTE | 2018-06-12 17:48 | PRG-2 ---
DATE OF SERVICE: 06/12/2018 RESIDENT: Christin Ibanez MD ATTENDING: Ralph George DO SUBJECTIVE: This is a 63-year-old female who was found to have left tibial plateau fracture after a fall. She is postoperative day #[address] Mark. This morning, the patient repor ts adequate pain control. The patient continues to participate with physical and occupational therap y. The patient states she called in her insurance company yesterday in order to help speed up the re hab placement process. No other complaints or concerns. OBJECTIVE: VITAL SIGNS: Temperature 98.2, pulse 88, respirations 15, O2 saturation 97% on room air, BP 133/77. GENERAL: No acute distress, patient is resting comfortably in bed. HEENT: Normocephalic, atraumatic. Pupils equal, round, reactive to light. Extraocular muscles inta ct. No scleral icterus present. NECK: Supple. Trachea midline. CARDIOVASCULAR: Regular rate and rhythm. No murmurs, rubs or gallops. RESPIRATORY: Clear to auscultation bilaterally. Symmetrical chest rise bilaterally, nonlabored sixto thing. ABDOMEN: Soft, nontender, nondistended. EXTREMITIES: 2+ to 3 radial and pedal pulses bilaterally. No edema present bilaterally, knee brace in place on left lower extremity. NEUROLOGIC: Nonfocal exam. PSYCHIATRIC: Normal mood and affect. LABORATORY DATA: No new labs. ASSESSMENT AND PLAN: 1. Left tibial plateau fracture, repaired. 2. Acute hyperglycemia with poorly controlled diabetes mellitus type 2. The patient has been adequately pain controlled overnight and she does not complain of any pain today . The patient will continue with physical and occupational therapy until discharge. The patient's m edications from home have been restarted and her glucose numbers have improved. We will continue to monitor. The patient is ready for discharge and is pending insurance for placement at rehabilitation facility. Case Management is on the case to help facilitate this process. The patient was seen and examined by Dr. George at the bedside during morning rounds today. Plan was discussed with the patie nt and as well as Dr. George and all are in agreement. All questions were answered by Dr. Neftaly siddiqui. Once insurance has been approved by the rehab facility, the patient is ready for discharge.
[2018-06-12] MEDS: Enoxaparin Sodium 40 MG/0.4 ML SYRINGE SC SCH (21:24)
[2018-06-13] MEDS: Senokot 8.6 MG TAB PO SCH ×2 (08:51→20:44)
[2018-06-13] MEDS: Clopidogrel Bisulfate 75 MG TAB PO SCH (08:51)
[2018-06-13] MEDS: Atorvastatin Calcium 40 MG TAB PO SCH (08:51)
[2018-06-13] MEDS: Gabapentin 300 MG CAP PO SCH ×2 (08:52→20:44)
[2018-06-13] MEDS: Insulin Glargine 40 UNITS in Pre-Filled Syringe 1 EACH SC SCH ×2 (08:52→20:44)
[2018-06-13] MEDS: metFORMIN XR 500 MG TAB PO SCH ×2 (08:52→20:44)
[2018-06-13] MEDS: Polyethylene Glycol 3350 17 GM Packet PO SCH (08:52)
[2018-06-13] MEDS: Citalopram 20 MG TAB PO SCH (08:52)
[2018-06-13] MEDS: HYDROcodone/Acetaminophen 5/325 mg Tablet PO PRN (11:41)
[2018-06-13] MEDS: Insulin Regular 300 UNITS/3 ML VIAL SC PRN ×2 (11:47→17:34)
--- NOTE | 2018-06-13 12:42 | PRG ---
DATE OF SERVICE: 06/13/2018 SUBJECTIVE: Ms. Menendez is a 63-year-old female who is postop day #4 from ORIF of a left tibial platea u fracture after a mechanical fall. The patient is in a knee immobilizer working with PT. She is am bulatory. She is currently just awaiting insurance approval for rehab. Pain is basically controlled and she is tolerating a diet. She has had bowel movements. OBJECTIVE: VITAL SIGNS: Temperature is 98.7, blood pressure 138/81, heart rate is 88, respiratory rate is 18. She is 93% on room air. GENERAL: A 63-year-old female sitting up on the edge of the bed. Has a left knee immobilizer, strai ght leg brace in place. No acute distress. HEENT: Normocephalic, atraumatic. NECK: Trachea is midline. No JVD is appreciated. CHEST: Equal rise and fall. Bilateral breath sounds clear to auscultation. Prolonged bilaterally. CARDIOVASCULAR: Regular rate and rhythm. No murmurs appreciated. ABDOMEN: Soft and nontender. Pelvis is stable. MUSCULOSKELETAL: She has decreased sensation to the lower extremities. This is chronic neuropathy. She also has the straight knee brace. She has got a mild edema to the left extremity, but she is ab le to move all of her extremities. She has no edema in the upper extremities. Strong pulses. SKIN: [place], warm and dry. NEUROLOGIC: Alert and oriented to person, place, time, and event. PSYCHIATRIC: Normal mood and affect. LABORATORY DATA: Today is only significant for glucose of 191. ASSESSMENT: 1. Left tibial plateau fractures. Postop day 4 from open reduction and internal fixation of the margie e. 2. Acute hyperglycemia in the setting of diabetes. 3. Acute traumatic pain. PLAN: 1. Continue to contact [employer], [place] for approval for rehab placement today. I have discussed wit h case management. 2. Continue to work with PT and OT. 3. Pain control as needed. 4. Insulin as needed, sliding scale. From a trauma standpoint, the patient is ready for discharge. We will continue all other supportive care in the interim including DVT prophylaxis with twice daily aspirin and enoxaparin, continue the b owel regimen. This plan was discussed with Dr. George and can be updated as needed.
--- NOTE | 2018-06-13 14:42 | PQF ---
CLINICAL DOCUMENTATION IMPROVEMENT CLARIFICATION FORM: ICD-10 Updated PLEASE DO AN ADDENDUM TO THE PROGRESS NOTE WITH ANY DOCUMENTATION UPDATES OR ADDITIONS AND CARRY THROUGH TO DC SUMMARY. THANK YOU. DATE: 06/13, ATTN: DR. FLO PETERSON Please exercise your independent, professional judgment in responding to the clarification form. Clinical indicators are provided on the bottom of this form for your review. Please check appropriate box(s): [ ] Chronic Respiratory Failure [ ] with Hypoxia [ ] with Hypercapnia [ x ] Hypoxia [ ] Other diagnosis [ ] Unable to determine For continuity of documentation, please document condition throughout progress notes and discharge summary. Thank You. CLINICAL INDICATORS - SIGNS / SYMPTOMS / LABS ER PHYSICIAN DOCUMENTATION 06/09: RA SAT 94%, PLACED ON 2L NC; PT STATES THEY USE OXYGEN AT HOME H&P 06/09: PT HAS HX OF COPD; REQUIRING HOME OXYGEN USE IN THE PAST PN 06/09: 02 SAT 95% ON 2LNC PER RESPIRATORY THERAPY: PATIENT HAS BEEN ON OXYGEN THIS ADMISSION RISK FACTORS: COPD HX OF HOME 02 USE HX OF TOBACCO ABUSE TREATMENTS: SUPPLEMENTAL OXYGEN (2-3L NC 06/09 - PRESENT) RESPIRATORY TREATMENTS (DUONEB PRN) THANK YOU! Kathleen (This form is maintained as a part of the permanent medical record) 2014 [employer]. All Rights Reserved Kathleen Miranda RN, BSN [email or web address] Office: [phone] [facility]PITALCarl[facility]
[2018-06-13] MEDS: Enoxaparin Sodium 40 MG/0.4 ML SYRINGE SC SCH (20:44)
[2018-06-14] MEDS: Insulin Glargine 40 UNITS in Pre-Filled Syringe 1 EACH SC SCH ×2 (10:03→20:34)
[2018-06-14] MEDS: Clopidogrel Bisulfate 75 MG TAB PO SCH (10:04)
[2018-06-14] MEDS: metFORMIN XR 500 MG TAB PO SCH ×2 (10:04→20:36)
[2018-06-14] MEDS: Citalopram 20 MG TAB PO SCH (10:04)
[2018-06-14] MEDS: Atorvastatin Calcium 40 MG TAB PO SCH (10:04)
[2018-06-14] MEDS: Gabapentin 300 MG CAP PO SCH ×2 (10:04→20:36)
[2018-06-14] MEDS: Polyethylene Glycol 3350 17 GM Packet PO SCH (10:05)
[2018-06-14] MEDS: Senokot 8.6 MG TAB PO SCH ×2 (10:05→20:27)
[2018-06-14] MEDS: Insulin Regular 300 UNITS/3 ML VIAL SC PRN (13:18)
--- NOTE | 2018-06-14 17:28 | PRG ---
DATE OF SERVICE: 06/14/2018 SUBJECTIVE: This is a 63-year-old female status post fall resulting in a tibial plateau fracture. T he patient is postop day #5 status post repair. There were no acute overnight events. The patient s tates pain has been well controlled. She is working with physical therapy. She awaits insurance [employer] and authorization for inpatient rehabilitation. OBJECTIVE: VITAL SIGNS: Temperature 98.5, pulse 86, respirations 20, O2 sat 98% on 2 liters nasal cannula, bloo d pressure 148/91. GENERAL: Resting in bed in no acute distress. HEAD: Normocephalic, atraumatic. PULMONARY: Normal work of breathing. Symmetric rise. CARDIOVASCULAR: Regular rate and rhythm. GASTROINTESTINAL: Abdomen is soft, nontender, nondistended. MUSCULOSKELETAL: Left lower extremity in knee immobilizer. Moves all extremities x4. NEUROLOGIC: No focal deficit noted. LABORATORY DATA: There are no new laboratory finding. ASSESSMENT: 1. Status post fall. 2. Left tibial plateau fracture, postop day #5. 3. Diabetes with hyperglycemia. 4. Acute traumatic pain. PLAN: Continue pain management as ordered. Continue PT and OT. Encourage incentive spirometry, pul monary toileting and mobility. Blood sugars appear relatively controlled at this time. Patient's in surance is still not provided acceptance or denial for inpatient rehabilitation. Continue to follow and await insurance decisions. Plan of care was discussed with the patient at bedside. All questions were answered at the time of t his dictation. The patient was discussed with trauma attending.
[2018-06-14] MEDS: Enoxaparin Sodium 40 MG/0.4 ML SYRINGE SC SCH (20:35)
[2018-06-15] MEDS: Atorvastatin Calcium 40 MG TAB PO SCH (09:58)
[2018-06-15] MEDS: Gabapentin 300 MG CAP PO SCH ×2 (09:58→21:54)
[2018-06-15] MEDS: Clopidogrel Bisulfate 75 MG TAB PO SCH (09:59)
[2018-06-15] MEDS: metFORMIN XR 500 MG TAB PO SCH ×2 (09:59→21:54)
[2018-06-15] MEDS: Insulin Glargine 40 UNITS in Pre-Filled Syringe 1 EACH SC SCH ×2 (09:59→21:54)
[2018-06-15] MEDS: Citalopram 20 MG TAB PO SCH (09:59)
[2018-06-15] MEDS: Senokot 8.6 MG TAB PO SCH ×2 (10:00→21:55)
[2018-06-15] MEDS: Polyethylene Glycol 3350 17 GM Packet PO SCH (10:00)
[2018-06-15] MEDS: Insulin Regular 300 UNITS/3 ML VIAL SC PRN ×2 (12:11→18:31)
--- NOTE | 2018-06-15 13:16 | PRG ---
DATE OF SERVICE: 06/15/2018 SUBJECTIVE: This is a 63-year-old female status post fall resulting in a tibial plateau fracture. T he patient is postop day #6 status post repair. There were no acute overnight events. Patient's theodore n continues to remain well controlled. She continues to work with physical therapy. OBJECTIVE: VITAL SIGNS: Temperature 98.4, pulse 73, respirations 20, O2 saturation 97% on 2 liters nasal cannul a, blood pressure 134/80. GENERAL: Sitting on edge of bed, working with physical therapy. PULMONARY: Normal work of breathing. Symmetric rise. CARDIOVASCULAR: Regular rate and rhythm. GASTROINTESTINAL: Abdomen is soft, nontender, nondistended. MUSCULOSKELETAL: Moves all extremities x4. NEUROLOGIC: No focal deficit noted. LABORATORY DATA: No new laboratory findings. ASSESSMENT: 1. Status post fall. 2. Left tibial plateau fracture, postop day #6. 3. Diabetes. 4. Acute traumatic pain. PLAN: Continue pain regimen as ordered. Continue supportive care as ordered. Continue to encourage incentive spirometry and pulmonary toileting. Continue working with physical therapy and occupation al therapy. Await disposition for approval or denial for inpatient rehabilitation from the patient's insurance company. Plan of care was discussed with the patient at bedside and all questions were an swered at the time of this dictation. The patient was seen and evaluated with Dr. George.
[2018-06-15] MEDS: Enoxaparin Sodium 40 MG/0.4 ML SYRINGE SC SCH (21:54)
[2018-06-16] MEDS: HYDROcodone/Acetaminophen 5/325 mg Tablet PO PRN (01:16)
[2018-06-16] MEDS: metFORMIN XR 500 MG TAB PO SCH ×2 (08:37→21:02)
[2018-06-16] MEDS: Insulin Glargine 40 UNITS in Pre-Filled Syringe 1 EACH SC SCH ×2 (08:37→21:02)
[2018-06-16] MEDS: Gabapentin 300 MG CAP PO SCH ×2 (08:37→21:02)
[2018-06-16] MEDS: Clopidogrel Bisulfate 75 MG TAB PO SCH (08:38)
[2018-06-16] MEDS: Senokot 8.6 MG TAB PO SCH ×2 (08:38→21:03)
[2018-06-16] MEDS: Citalopram 20 MG TAB PO SCH (08:38)
[2018-06-16] MEDS: Polyethylene Glycol 3350 17 GM Packet PO SCH (08:38)
[2018-06-16] MEDS: Atorvastatin Calcium 40 MG TAB PO SCH (08:38)
[2018-06-16] MEDS: Insulin Regular 300 UNITS/3 ML VIAL SC PRN (12:07)
--- NOTE | 2018-06-16 15:40 | PRG-2 ---
DATE OF SERVICE: 06/16/2018 SUBJECTIVE: This is a 63-year-old female status post fall resulting in a left tibial plateau fracture. The patient is postop day #7. No acute events overnight. The patient's pain is well controlled. She continues to work with physical and occupational therapy. OBJECTIVE: VITAL SIGNS: Temperature 99.1, pulse 86, respirations 15, O2 saturation 94% on room air, BP 92/61. GENERAL: Patient is resting comfortably in bed, no acute distress. RESPIRATORY: Nonlabored breathing, bilateral symmetrical chest rise. CARDIOVASCULAR: Regular rate and rhythm. No murmurs, rubs, or gallops. ABDOMEN: Soft, nontender and nondistended. MUSCULOSKELETAL: Moves all extremities x4, left knee immobilizer in place. NEUROLOGIC: Nonfocal exam. PSYCHOLOGICAL: Normal mood and affect. LABORATORY DATA: No new labs. ASSESSMENT: 1. Status post fall. 2. Left tibial plateau fracture, postop day #7. 3. Diabetes mellitus. 4. Acute traumatic pain. PLAN: We will continue pain regimen as ordered and patient is well controlled. Continue supportive care. Continue to encourage incentive spirometry and pulmonary toileting. The patient will continue to work with physical and occupational therapy. Pending disposition as patient was denied for inpatient rehabilitation from the patient's insurance company. I have personally tried to contact the insurance company to speak with the outpatient case manager for a peer-to- per and have not received a callback. Multiple call attempts and left a voicemail. We will continue to work on patient's discharge planning with hopeful discharge to inpatient rehabilitation soon. Plan of care was discussed with the patient at the bedside and all questions were answered. The patient was seen and evaluated by Dr. Hairston during morning rounds today. MACHELLE
[2018-06-16] MEDS: Enoxaparin Sodium 40 MG/0.4 ML SYRINGE SC SCH (21:02)
[2018-06-17] MEDS: Gabapentin 300 MG CAP PO SCH (08:58)
[2018-06-17] MEDS: Citalopram 20 MG TAB PO SCH (08:58)
[2018-06-17] MEDS: Atorvastatin Calcium 40 MG TAB PO SCH (08:58)
[2018-06-17] MEDS: metFORMIN XR 500 MG TAB PO SCH (08:58)
[2018-06-17] MEDS: Senokot 8.6 MG TAB PO SCH (08:59)
[2018-06-17] MEDS: Clopidogrel Bisulfate 75 MG TAB PO SCH (08:59)
[2018-06-17] MEDS: Polyethylene Glycol 3350 17 GM Packet PO SCH (08:59)
[2018-06-17] MEDS: Insulin Glargine 40 UNITS in Pre-Filled Syringe 1 EACH SC SCH (08:59)
[2018-06-17 13:11] VITALS: BP 115/68; TEMP 98.4
[2018-06-17] MEDS: HYDROcodone/Acetaminophen 5/325 mg Tablet PO PRN (14:17)
== END 2018-06-17 15:55 | DRG 494 ==
LOC: ERS 23:37 → SURG A 06-09 02:35
PROVIDERS: ADMIT Surgery; ATTEND Surgery
PROC: 0QSH04Z Reposition Left Tibia with Internal Fixation Device, Open Approach (ICD-10-PCS; principal; 2018-06-09)
DX: S82.142A Displaced bicondylar fracture of left tibia, initial encounter for closed fracture (principal); E78.5 Hyperlipidemia, unspecified; E66.9 Obesity, unspecified; J44.9 Chronic obstructive pulmonary disease, unspecified; E11.65 Type 2 diabetes mellitus with hyperglycemia; I73.9 Peripheral vascular disease, unspecified; I25.10 Atherosclerotic heart disease of native coronary artery without angina pectoris; Z95.5 Presence of coronary angioplasty implant and graft; Z68.34 Body mass index [BMI] 34.0-34.9, adult; W22.8XXA Striking against or struck by other objects, initial encounter; Z79.899 Other long term (current) drug therapy; Z79.02 Long term (current) use of antithrombotics/antiplatelets; Z79.84 Long term (current) use of oral hypoglycemic drugs; Z99.81 Dependence on supplemental oxygen; F41.9 Anxiety disorder, unspecified; F32.9 Major depressive disorder, single episode, unspecified; Z87.891 Personal history of nicotine dependence; R09.02 Hypoxemia
CPT/HCPCS: 36415; 36416; 71045; 76001; 80048; 80053; 82553; 83735; 84100; 84484; 85025; 85576; 85610; 85730; 86850; 86900; 86901; 93005; 94760; 96374; 99406; C1713; G0390; G8978-GP-CK; G8979-GP-CI; G8987-GO-CK; G8988-GO-CJ; J0131; J0692; J1100; J1650; J1815; J1885; J2001; J2270; J2405; J2704; J3010; J7050; S0020

== ENCOUNTER 2018-11-18 14:40 | Outpatient (CLI) | payer MEDICARE ==
--- NOTE | 2018-11-18 15:06 | RAD ---
XR Lumbar Spine 2 Or 3 View: 11/18/2018 12:00 AM CLINICAL INDICATION: Low back pain COMPARISON: 09/22/2018 FINDINGS: Interval progression of height loss, with regard to a moderate anterior wedge compression fracture of L1, demonstrating continued, interval collapse, when comparing to 09/22/2018 exam. Lumbar spine is otherwise similar in appearance. IMPRESSION: Interval, progressive height loss involving moderate anterior wedge L1 compression fracture.
== END 2018-11-18 14:41 | disposition home or self-care (01) ==
LOC: TBSIIMAG 14:40
PROVIDERS: ATTEND Neurological Surgery
DX: M54.5 Low back pain (principal); S32.010A Wedge compression fracture of first lumbar vertebra, initial encounter for closed fracture
CPT/HCPCS: 72100

== ENCOUNTER 2020-03-05 19:04 | Inpatient (IN) | payer MEDICARE, OTHER ==
[2020-03-05 19:43] LABS: #Eosinphils 0.4 thou/uL (0.0-0.7); #Monocytes 0.7 thou/uL (0.11-0.59); #Neutrophils 8.9 thou/uL (1.40-6.50); %Basophils 0.3 % (0.0-1.0); %Eosinophils 2.9 % (0.0-10.0); %Neutrophils 68.8 % (42.0-75.0); Hemoglobin 12.1 g/dL (12.0-16.0); Mean Corpuscular HGB CONC 31.9 g/dL (32.0-36.0); Mean Corpuscular Hemoglobin 29.3 pg (27.0-31.0); Mean Corpuscular Volume 91.7 fL (78.0-98.0); Mean Platelet Volume 9.4 fL (7.4-10.4); Platelet Count 316 thou/uL (130-400); Red Blood Cell (RBC) Count 4.15 mill/uL (4.20-5.40)
--- NOTE | 2020-03-05 19:53 | RAD ---
EXAM: 3 views of the left foot HISTORY: Nonhealing wounds on the left foot COMPARISON: None FINDINGS: 3 views of the left foot shows no evidence of acute fracture or dislocation. There is remot e healed fifth metatarsal fracture. No osseous erosions are seen. No soft tissue swelling is seen. No degenerative changes are present. IMPRESSION: No evidence of acute osseous abnormality.
[2020-03-05 20:03] LABS: ALT (SGPT) Less than 7 U/L (8-55); AST (SGOT) 7 U/L (5-34); Albumin 3.5 g/dL (3.4-4.8); Alkaline Phosphatase 147 U/L (40-110); Anion Gap 13 mmol/L (10-20); BUN (Urea Nitrogen) 13 mg/dL (9.8-20.1); Bilirubin, Total 0.3 mg/dL (0.2-1.2); Calc. Creatinine Clearance 0 mL/min (70-130); Calcium 9.4 mg/dL (7.8-10.44); Carbon Dioxide 27 mmol/L (23-31); Chloride 100 mmol/L (98-107); Estimated GFR-MDRD 35; Globulin 3.7 g/dL (2.4-3.5); Glucose 463 mg/dL (80-115); Potassium 4.5 mmol/L (3.5-5.1); Protein, Total 7.2 g/dL (6.0-8.3); Sodium 135 mmol/L (136-145)
[2020-03-05] MEDS ORDERED: Cefepime 2 GM VIAL ONE (21:46)
[2020-03-05] MEDS ORDERED: Vancomycin 1 GM/200 ML BAG ONE (22:35)
[2020-03-05] MEDS ORDERED: Insulin Regular 300 UNITS/3 ML VIAL ONE (22:44)
[2020-03-06] MEDS ORDERED: Ondansetron PF 4 MG/2 ML Vial IVP PRN (02:35)
[2020-03-06] MEDS ORDERED: Acetaminophen 325 MG TAB PO PRN (02:35)
[2020-03-06] MEDS ORDERED: Ondansetron ODT 4 MG TAB PO PRN (02:35)
[2020-03-06] MEDS ORDERED: Dextrose 5% in Water 1,000 ML IV PRN (02:35)
[2020-03-06] MEDS ORDERED: Calcium Carbonate 500 MG ChewTAB PO PRN (02:35)
[2020-03-06] MEDS ORDERED: Dextrose 50% Abboject 50 ML SYRINGE SLOW IVP PRN (02:35)
--- NOTE | 2020-03-06 02:49 | PDOC.HHP ---
Hospitalist HPI - History of Present Illness L foot infection History of Present Illness: Case of an 65y/o female with pmhx of cad, pvd, dm and copd who comes to hospital due to worsening L foot infection. patient refers she was on her usual state of health until about 1 month ago where she believes working on her nails , she had a small abrasion which has progressed to a significant infection. patient states that when it started to increase in size she when to her pcp and was evaluated by wound care. patient was currently on septra but infection continued to worsen for which she decided to come to hospital. patient denies any fever chills nausea or vomiting. pt has advance DM with neuropathy and had no pain on area Hospitalist ROS - Review of Systems All other systems reviewed; all pertinent +/- noted in HPI/Subj Hospitalist History - Social History Smoking Status: Current some day smoker Alcohol: reports: None Drugs: reports: none - Exam General Appearance: NAD, awake alert Eye: PERRL, anicteric sclera ENT: normocephalic atraumatic, no oropharyngeal lesions Neck: supple, symmetric, no JVD Heart: RRR, no murmur, no gallops, no rubs Respiratory: CTAB, no wheezes, no rales Gastrointestinal: soft, non-tender, non-distended Extremities - other findings: L foot with multiple lesions on dorson, lateral big toe with necrotic tissu Skin: normal turgor Neurological: cranial nerve grossly intact, normal sensation to touch, no weakness Musculoskeletal: normal tone, normal strength, no muscle wasting Psychiatric: normal affect, normal behavior, A&O x 3 Hospitalist Results - Labs Result Diagrams: 03/05/20 19:33 03/05/20 19:33 Lab results: WBC 13.0 thou/uL (4.8-10.8) H 03/05/20 19:33 Hgb 12.1 g/dL (12.0-16.0) 03/05/20 19:33 Hct 38.1 % (36.0-47.0) 03/05/20 19:33 MCV 91.7 fL (78.0-98.0) 03/05/20 19:33 Plt Count 316 thou/uL (130-400) 03/05/20 19:33 Neutrophils % 68.8 % (42.0-75.0) 03/05/20 19:33 ESR Westergren 45 mm/hr (Less than 30) 03/05/20 19:33 Sodium 135 mmol/L (136-145) L 03/05/20 19:33 Potassium 4.5 mmol/L (3.5-5.1) 03/05/20 19:33 Chloride 100 mmol/L (98-107) 03/05/20 19:33 Carbon Dioxide 27 mmol/L (23-31) 03/05/20 19:33 BUN 13 mg/dL (9.8-20.1) 03/05/20 19:33 Creatinine 1.52 mg/dL (0.6-1.1) H 03/05/20 19:33 Glucose 463 mg/dL (80-115) H 03/05/20 19:33 Calcium 9.4 mg/dL (7.8-10.44) 03/05/20 19:33 Total Bilirubin 0.3 mg/dL (0.2-1.2) 03/05/20 19:33 AST 7 U/L (5-34) 03/05/20 19:33 ALT Less than 7 U/L (8-55) L 03/05/20 19:33 Alkaline Phosphatase 147 U/L (40-110) H 03/05/20 19:33 C-Reactive Protein 8.21 mg/dL (= or < 0.5) H 03/05/20 19:33 Serum Total Protein 7.2 g/dL (6.0-8.3) 03/05/20 19:33 Albumin 3.5 g/dL (3.4-4.8) 03/05/20 19:33 Hospitalist H&P A/P - Problem (1) Cellulitis Code(s): L03.90 - CELLULITIS, UNSPECIFIED Status: Acute (2) Diabetes Code(s): E11.9 - TYPE 2 DIABETES MELLITUS WITHOUT COMPLICATIONS Status: Acute (3) PVD (peripheral vascular disease) Code(s): I73.9 - PERIPHERAL VASCULAR DISEASE, UNSPECIFIED Status: Acute (4) CAD (coronary artery disease) Code(s): I25.10 - ATHSCL HEART DISEASE OF [place] CORONARY ARTERY W/O ANG PCTRS Status: Acute (5) COPD (chronic obstructive pulmonary disease) Status: Acute (6) BOBBY (acute kidney injury) Code(s): N17.9 - ACUTE KIDNEY FAILURE, UNSPECIFIED Status: Acute - Plan Plan: Case 65y/o female with the stated pmhx with an l foot infection h/s for OM cellulitis - extensive, h/s for OM, foot xr is not suggestive of OM, but crp is elevated, would consider mri but pt has bobby will rehydrate first - started on cefepimen + vanc - wound care consulted - gen surgery consulted - f/u blood cultures - had doppler reading at the ED DP - evaluated circulation with arterial doppler dm - uncontrolled - long acting insulin 25 bid - ss + accu checks bobby - creatinine 0.3 higher that previous one - iv hydration - f/u creatinine and u/o
[2020-03-06] MEDS: Sodium Chloride 0.9% 1,000 ML IV SCH ×2 (03:02→16:14)
[2020-03-06 03:05] VITALS: BMI 33.7
[2020-03-06] MEDS ORDERED: HumaLOG 300 UNITS/3 ML VIAL SC SCH (03:30)
[2020-03-06] MEDS ORDERED: Insulin Glargine 25 UNITS in Pre-Filled Syringe 1 EACH SC SCH ×3 (03:30→21:00)
[2020-03-06] MEDS ORDERED: Albuterol 200 PUFF (6.7GM INHALER) INH PRN (05:00)
[2020-03-06] MEDS: HumaLOG 300 UNITS/3 ML VIAL SC PRN ×4 (06:34→20:43)
[2020-03-06 06:51] LABS: ALT (SGPT) 7 U/L (8-55); AST (SGOT) 5 U/L (5-34); Alkaline Phosphatase 117 U/L (40-110); Anion Gap 10 mmol/L (10-20); BUN (Urea Nitrogen) 14 mg/dL (9.8-20.1); Bilirubin, Total 0.2 mg/dL (0.2-1.2); Calc. Creatinine Clearance 64 mL/min (70-130); Calcium 8.6 mg/dL (7.8-10.44); Carbon Dioxide 25 mmol/L (23-31); Chloride 104 mmol/L (98-107); Estimated GFR-MDRD 43; Glucose 369 mg/dL (80-115); Potassium 3.6 mmol/L (3.5-5.1); Sodium 135 mmol/L (136-145)
[2020-03-06 08:13] LABS: Hemoglobin 11.4 g/dL (12.0-16.0); Red Blood Cell (RBC) Count 3.93 mill/uL (4.20-5.40)
[2020-03-06 08:14] LABS: Band 2 % (5-11); Eosinophils 6 % (0-10); Lymphocytes 29 % (21-51); MDiff Complete? YES; Mean Corpuscular HGB CONC 31.7 g/dL (32.0-36.0); Mean Corpuscular Hemoglobin 29.1 pg (27.0-31.0); Mean Corpuscular Volume 91.8 fL (78.0-98.0); Mean Platelet Volume 9.3 fL (7.4-10.4); Monocytes 6 % (0-10); Neutrophil 57 % (42-75); Platelet Count 290 thou/uL (130-400); RBC Distribution Width 11.9 % (11.5-14.5)
--- NOTE | 2020-03-06 08:52 | ULT ---
US Arterial Doppler Lower Ext left leg History: Peripheral vascular disease Comparison: None. Findings: Real-time grayscale, color and spectral analysis left lower extremity arterial system was p erformed. There appears be a left femoral-popliteal graft which is occluded.. There is decreased peak systolic velocity within the common femoral artery of 73 cm/s with abnormal monophasic waveform. Monophasic waveform within the [place] proximal femoral artery. No flow within the [place] mid femoral artery. Dam pened waveform of the distal femoral artery with extensive spectral broadening and peak systolic velocity of 84 cm/second. [place] popliteal artery has parvis tardis waveform with peak systolic velocity of 40 cm/second and mo nophasic waveform. No flow within the anterior tibial artery. Posterior tibial artery has dampened monophasic waveform with parvis tardis and spectral broadening. Dorsalis pedis artery has severe parv is tardis monophasic waveform with spectral broadening. Impression: 1. Occluded femoropopliteal graft. 2. Occluded mid femoral artery. 3. Occluded anterior tibial artery. 4. Severe monophasic parvis tardis waveform with spectral broadening within the dorsalis pedis and po sterior tibial arteries. 5. Dampened monophasic waveform of the common femoral and proximal femoral artery. Transcribed Date/Time: 03/06/2020 9:08 AM
[2020-03-06] MEDS: Cefepime 2 GM in Sodium Chloride 0.9% 100 ML IVPB SCH ×2 (08:56→20:40)
[2020-03-06] MEDS: Enoxaparin Sodium 40 MG/0.4 ML SYRINGE SC SCH (08:56)
[2020-03-06] MEDS: Gabapentin 300 MG CAP PO SCH ×3 (08:57→20:40)
--- NOTE | 2020-03-06 13:49 | PDOC.HOSPP ---
- Subjective Encounter Date: 03/06/20 Encounter Time: 13:47 Subjective: Ms. Snow was seen today in follow-up of diabetic foot infection. She says she does not have pain because she can't feel her feet due to PVD. She believes another spot may be trying to pop up. - Objective Vital Signs & Weight: Vital Signs (12 hours) Temp Pulse Resp BP Pulse Ox 03/06/20 12:50 97.9 F 85 16 126/78 96 03/06/20 07:09 98.2 F 87 18 116/76 95 03/06/20 04:18 97.5 F L 77 18 109/74 92 L Weight Weight 197 lb I&O: 03/05/20 03/06/20 03/07/20 06:59 06:59 06:59 Intake Total 650 Balance 650 Result Diagrams: 03/06/20 06:09 03/06/20 06:09 Additional Labs: Accuchecks 03/06/20 03/06/20 03/06/20 11:29 06:13 01:21 POC Glucose 336 H 358 H 347 H Hospitalist ROS - Medication Medications: Active Medications Generic Name Dose Route Start Last Admin Trade Name Freq PRN Reason Stop Dose Admin Enoxaparin Sodium 40 mg 03/06/20 09:00 03/06/20 08:56 Lovenox SC 40 mg 0900 KLAUDIA Administration Gabapentin 300 mg 03/06/20 09:00 03/06/20 08:57 Neurontin PO 300 mg TID KLAUDIA Administration Cefepime HCl 2 gm/ Sodium 100 mls @ 200 mls/hr 03/06/20 09:00 03/06/20 08:56 Chloride IVPB 100 mls Q12HR KLAUDIA Administration Insulin Glargine 25 units/ 0.25 mls @ 0 mls/hr 03/06/20 09:00 03/06/20 08:57 Miscellaneous Medication SC 0.25 mls QAM KLAUDIA Administration Sodium Chloride 1,000 mls @ 70 mls/hr 03/06/20 02:45 03/06/20 03:02 Normal Saline 0.9% IV 1,000 mls .[id number] KLAUDIA Administration Insulin Human Lispro 0 units 03/06/20 02:35 03/06/20 12:43 Humalog SC 8 unit .MODERATE SLIDING SC PRN Administration Moderate Correctional Scale - Exam Eye: PERRL, anicteric sclera Heart: RRR, no murmur, no gallops, no rubs, normal peripheral pulses Respiratory: CTAB, no wheezes, no rales, no ronchi, normal chest expansion Gastrointestinal: soft, non-tender, non-distended, normal bowel sounds, no palpable masses Extremities: no cyanosis Hosp A/P (1) Type 1 diabetes mellitus with diabetic foot infection Code(s): E10.628 - TYPE 1 DIABETES MELLITUS WITH OTHER SKIN COMPLICATIONS; L08.9 - LOCAL INFECTION OF THE SKIN AND SUBCUTANEOUS TISSUE, UNSP Status: Acute (2) Diabetic peripheral neuropathy Code(s): E11.42 - TYPE 2 DIABETES MELLITUS WITH DIABETIC POLYNEUROPATHY Status : Chronic (3) Diabetes mellitus type 2 in obese Code(s): E11.69 - TYPE 2 DIABETES MELLITUS WITH OTHER SPECIFIED COMPLICATION; E66.9 - OBESITY, UNSPECIFIED Status: Chronic (4) Hypertension Code(s): I10 - ESSENTIAL (PRIMARY) HYPERTENSION Status: Chronic (5) BOBBY (acute kidney injury) Code(s): N17.9 - ACUTE KIDNEY FAILURE, UNSPECIFIED Status: Acute (6) CAD (coronary artery disease) Code(s): I25.10 - ATHSCL HEART DISEASE OF [place] CORONARY ARTERY W/O ANG PCTRS Status: Chronic (7) COPD (chronic obstructive pulmonary disease) Status: Chronic (8) PVD (peripheral vascular disease) Code(s): I73.9 - PERIPHERAL VASCULAR DISEASE, UNSPECIFIED Status: Acute - Plan * Diabetic foot infection with severe peripheral vascular disease- I have spoken with Dr. Segundo, and he will come to evaluate the patient * Podiatry has also been consulted * Will continue broad spectrum antibiotics * DM- her blood glucose is elevated- will titrate her dose of insulin * CAD- stable * Acute kidney injury- likely due to infection- improving * HTN- blood pressure is stable
[2020-03-06] MEDS ORDERED: Docusate 100 MG CAP PO PRN (14:45)
[2020-03-06] MEDS: Sodium Chloride 0.45% 1,000 ML IV SCH ×2 (18:25→21:12)
--- NOTE | 2020-03-06 19:25 | CON ---
DATE OF CONSULTATION: 03/06/2020 REQUESTING PHYSICIAN: Rick Ravi MD. PRIMARY CARE PHYSICIAN: Tacho Sutherland MD CHIEF COMPLAINT: Multiple wounds and redness, left foot. HISTORY OF PRESENT ILLNESS: The patient is a 65-year-old diabetic woman with previous coronary stenting, lower extremity arterial stenting and emergent femoral-popliteal bypass on the left side about 2-1/2 years ago. I first met her in mid September when she was here visiting family and developed pain and paresthesias in her left leg that had fairly recently undergone FUR POLISHER to address disease in her left lower extremity. When she presented after several hours, she was developing dusky discoloration in her foot and some stiffness in her ankle and she underwent emergent revascularization. Her common femoral and popliteal arteries both required endarterectomy in order to do a femoral-popliteal bypass with a synthetic graft and a four compartment fasciotomy was done on the left lower leg. When I saw her in the office 2 or 3 weeks postoperatively, she had strong Doppler signals in her dorsalis pedis and posterior tibial, and I thought that I might be able to feel a dorsalis pedis. This was similar to her exam in the hospital. Skin on the tip of the fifth toe had sloughed at that time. She was lost to followup after early October of 2017 and has spent some of that time back in [place]. She describes having undergone debridement of her left fifth toe and a percutaneous procedure on her right lower extremity while there. She has since moved back to the [facility] area. She is rather vague as to the timeline in part because of the dense neuropathy in her feet, but she describes rubbing a blister on her left big toe while using a pumice stone to clean off callus. She has since developed multiple sores on her foot and she was admitted with progression of those sores and the development of cellulitic changes on the dorsum of her foot. PAST MEDICAL HISTORY: Significant for diabetes, coronary artery disease, peripheral vascular disease. HOME MEDICATIONS: 1. Albuterol. 2. Neurontin 300 mg t.i.d. 3. She has recently been started on Bactrim DS one p.o. b.i.d. 4. Divalproex 500 mg at bedtime. 5. Citalopram 20 mg a day. 6. Metformin 500 mg b.i.d. 7. She has been started on Lantus 25 units subcu b.i.d. since I first met her in September of 2017. She has had her Lantus adjusted to 30 units b.i.d. here in the hospital. 8. Is on Lovenox 40 mg once a day. 9. Cefepime. 10. Vancomycin. 11. Sliding scale insulin. She told me today that she quit smoking four years ago. The admitting physician elicited history of ongoing smoking when I first met her in September of 2017. She said that she had quit smoking in April of 2017, even though at the time she smelled strongly of cigarette smoke. FAMILY HISTORY: Significant for multiple first-degree relatives with diabetes at least one of whom has undergone amputation. REVIEW OF SYSTEMS: Positive for shortness of breath. Negative for any transient eye, speech, facial, or extremity symptoms consistent with TIAs. Negative for any chest pain. It is positive for numbness in her feet and lower legs extending up to the knees. She denies any antecedent claudication or rest pain. PHYSICAL EXAMINATION: VITAL SIGNS: Temperature currently is 97.9. Her maximum temperature on the [place] since last night is 98.2, in the emergency room it was 98.1, heart rate is 83, blood pressure 129/76. HEENT: She has no xanthelasma. She is edentulous. NECK: She has no JVD. She has a left carotid bruit. CHEST: Clear to auscultation. She has markedly diminished force of exhalation when I asked her to blow out hard against my hand. HEART: Has a regular rate and rhythm with no obvious murmur or gallop. ABDOMEN: Obese, soft and nontender without obvious bruits. EXTREMITIES: Has palpable radial and femoral pulses bilaterally, although the left femoral pulse perhaps is somewhat diminished. I do not hear femoral bruits on either side. She has well-healed surgical scars paralleling the left groin crease and medially on the thigh just above the left knee as well as fasciotomy incisions medially and laterally on the lower leg. Her right foot has some very superficial wounds that she says came from abrading her lateral right ankle and sharma against a CD player in her car. Otherwise, the foot appears healthy. On the saphenous vein, there is full and strips easily. The foot is pink. I am not able to palpate pedal pulses. On the left side, there are cellulitic changes involving much of the dorsum of the left foot surrounding an eschar that appears to be full thickness that is considerably larger than a silver dollar. It is probably in the 6 to 8 cm in diameter range. She has eschar on her heel that is about a silver dollar size. She has about 7 or 8 mm dry ulcer on the medial aspect of the dorsum of the base of the great toe. The fifth toe appears reasonably viable. Toes 1 through 4 have very pale scan that feels like it is in the process of sloughing. LABORATORY DATA: Her white count was 13 yesterday and is 12 this morning, around 70% neutrophils and 23% lymphocytes and a computerized differential. Her hemoglobin was 12.1, hematocrit 38.1, platelets 316,000. Her sodium was 135, potassium 3.6, chloride 104, CO2 of 25, BUN 14, creatinine 1.26 with an estimated GFR of 43. On admission, her BUN and creatinine were 13 and 1.52 respectively and an estimated GFR of 35. Her blood sugar was 463 last night, 369 this morning and it has been in the mid 300s on Accu-Cheks since. She has no chest x-ray this admission. The last one I have found in our system was from June of 2018 at which time she had cardiomegaly and fairly flattened diaphragms for woman of her build (she is 5 feet 4 inches and weighs 197 pounds). IMPRESSION AND RECOMMENDATIONS: She has occluded her femoral-popliteal graft both clinically based on progression of disease and by ultrasound sonography. She still has a reasonably good femoral pulse based on her current exam and what I found at the time of surgery, rather imagine she has trifurcation vessel disease. Even if anatomically she is amenable to surgical revascularization, she is apt to lose her forefoot and getting her heel on the dorsum of her foot to heal up without running into issues of calcaneal osteomyelitis or desiccation of the tendons on the dorsal aspect of her foot is going to be rather problematic. It is not a lost cause, but I have cautioned her that it may be difficult to leave her with a functional foot. I am going to plan on overnight hydration and conventional arteriography tomorrow. Job ID: [id number]
[2020-03-06] MEDS: Divalproex Sodium DR 500 MG TAB PO SCH (20:40)
[2020-03-06] MEDS: Insulin Glargine 15 UNITS in Pre-Filled Syringe 1 EACH SC SCH (20:42)
[2020-03-06] MEDS ORDERED: Insulin Glargine 30 UNITS in Pre-Filled Syringe 1 EACH SC SCH (21:00)
[2020-03-06] MEDS ORDERED: Vancomycin 1 GM in Premix Bag 1 BAG IVPB SCH (22:00)
[2020-03-07] MEDS: HumaLOG 300 UNITS/3 ML VIAL SC PRN ×3 (05:56→17:57)
[2020-03-07 07:36] LABS: #Basophils 0.1 thou/uL (0.0-0.2); #Eosinphils 0.5 thou/uL (0.0-0.7); #Lymphocytes 2.5 thou/uL (1.20-3.40); #Monocytes 0.5 thou/uL (0.11-0.59); #Neutrophils 6.7 thou/uL (1.40-6.50); %Basophils 0.6 % (0.0-1.0); %Eosinophils 4.8 % (0.0-10.0); %Lymphocytes 24.6 % (21.0-51.0); %Monocytes 4.6 % (0.0-10.0); %Neutrophils 65.4 % (42.0-75.0); Mean Corpuscular HGB CONC 31.8 g/dL (32.0-36.0); Mean Corpuscular Hemoglobin 30.3 pg (27.0-31.0); Mean Corpuscular Volume 95.1 fL (78.0-98.0); Mean Platelet Volume 9.2 fL (7.4-10.4); Platelet Count 220 thou/uL (130-400); RBC Distribution Width 12.1 % (11.5-14.5); Red Blood Cell (RBC) Count 3.97 mill/uL (4.20-5.40); White Blood Cell (WBC) Count 10.2 thou/uL (4.8-10.8)
[2020-03-07 07:59] LABS: Anion Gap 12 mmol/L (10-20); BUN (Urea Nitrogen) 12 mg/dL (9.8-20.1); Calc. Creatinine Clearance 69 mL/min (70-130); Calcium 8.8 mg/dL (7.8-10.44); Carbon Dioxide 24 mmol/L (23-31); Chloride 106 mmol/L (98-107); Estimated GFR-MDRD 47; Glucose 347 mg/dL (80-115); Potassium 4.9 mmol/L (3.5-5.1); Sodium 137 mmol/L (136-145)
[2020-03-07] MEDS: Cefepime 2 GM in Sodium Chloride 0.9% 100 ML IVPB SCH ×2 (08:32→20:30)
[2020-03-07] MEDS: Enoxaparin Sodium 40 MG/0.4 ML SYRINGE SC SCH (08:35)
[2020-03-07] MEDS: Gabapentin 300 MG CAP PO SCH ×4 (08:36→20:34)
[2020-03-07] MEDS ORDERED: Insulin Glargine 30 UNITS in Pre-Filled Syringe 1 EACH SC SCH (09:00)
[2020-03-07] MEDS ORDERED: Iopamidol 370 76% 50 ML VIAL FS ONE (11:03)
[2020-03-07 11:55] LABS: SARS-CoV-2 MS2 Positive; SARS-CoV-2 N Gene Negative; SARS-CoV-2 S Gene Negative; SARS-CoV-2 by NAA Not Detected (NotDetected); SARS-CoV-2 orf1ab Negative
[2020-03-07] MEDS ORDERED: Fentanyl 100 MCG/2 ML VIAL ONE (13:26)
[2020-03-07] MEDS ORDERED: Midazolam HCl 2 mg/2 ml Vial ONE (13:26)
--- NOTE | 2020-03-07 15:46 | CON ---
DATE OF CONSULTATION: 03/07/2020 HISTORY OF PRESENT ILLNESS: Nilda Menendez is a 65-year-old female who is admitted to the Hospitalist Service with problems of her left foot. Two and half years ago Dr. Segundo performed a left femoral-popliteal endarterectomy to accomplish this. The patient since subsequently moved to the [facility] to help a relative on hospice. While there, the patient states that she had some problems with her left small toe and states she had a stent placed in her right femoral artery. The patient has had prior coronary artery bypass grafting. She follows up with Dr. Phipps, she thinks her service desk agent name is, although she has not seen him in a while. The patient presents to the hospital. X-rays of left foot not demonstrating any definite osteomyelitis. She has wounds on her third and fourth toes. Her second toe is pale and looks gangrenous. Her great toe left foot has an eschar over the dorsum and is ischemic. She has redness over the dorsum of her foot. She has an eschar over her proximal dorsum foot and left heel decubitus with deep eschar. She has a palpable femoral pulse, nonpalpable popliteal pulse. The patient by clinical exam has occluded her left femoral-popliteal graft and considering that she had an endarterectomy of her popliteal artery in the past, it is unlikely that her circulation is going to be improved from intervention standpoint, but Dr. Segundo is planning arteriography and attempt at improving her revascularization. There has been some discussion regarding salvage of the portion of her foot. The eschars over her dorsum of her foot and heel are unlikely to heal in view of her PAD and her distal disease. She is also diabetic. In my opinion, she most likely will need a left [id number] amputation, possible above. I have communicated this to the patient, but we will await Dr. Segundo efforts for revascularization, to see if she actually improves clinically. Currently with the condition of her foot I cannot see how we can accomplish a more proximal amputation with salvage, although the areas over the proximal dorsum of her foot and heel are decubitus and pressure related to pressure and shoe wear. SOCIAL HISTORY: The patient has history of two pack a day smoking cessation 3 to 4 years ago, although she does vapes. Alcohol, none. Drug use, none. MEDICATIONS: 1. Bactrim. 2. Divalproex sodium. 3. Albuterol inhaler. 4. Citalopram. 5. Metformin. 6. Insulin 25 units b.i.d. subcu. 7. Gabapentin 300 mg t.i.d. PAST SURGICAL HISTORY: 1. Coronary artery bypass grafting. 2. Left tibial plateau fracture ORIF, Dr. Mark in 2018. 3. Coronary bypass grafting by Dr. Segundo 4 to 5 years ago. 4. Left femoral-popliteal bypass with popliteal endarterectomy 3 years ago. 5. Stenting in right femoral artery in the last year. 6. Debridement of left small toe. 7. Colonoscopy in the past. PAST MEDICAL HISTORY: 1. Diabetes mellitus. 2. Hypertension. 3. Elevated cholesterol. 4. Severe PAD. 5. Continued vaping. 6. Obesity. FAMILY HISTORY: Noncontributory. REVIEW OF SYSTEMS: Noncontributory. PHYSICAL EXAMINATION: VITAL SIGNS: Height 5 feet 4 inches, 197 pounds, 33 BMI. Temperature 97.8, heart rate 86, blood pressure 144/87. HEAD, EARS, EYES, NOSE, AND THROAT: Unremarkable. LUNGS: Clear to auscultation. CARDIAC: Regular rate and rhythm without murmur or gallop. ABDOMEN: Soft, nontender. EXTREMITIES: Palpable femoral pulse. Nonpalpable distal pulses, left leg. Toes as described above. LABORATORY DATA: White count 10, hemoglobin 12. Basic metabolic profile normal. Creatinine 1.17, BUN 12, GFR 47, glucose 253 to 339. ASSESSMENT AND PLAN: 1. Severe peripheral arterial disease with occlusion of her femoral-popliteal bypass of left leg with ischemic left foot. With a pressure eschar, necrosis heel, and proximal dorsum and cellulitis over the dorsum of the foot to the proximal foot, she most likely will result in below-knee amputation, but await intervention attempts by Dr. Segundo. 2. Eschars, left foot, heel pressure decubitus, and dorsum of foot for . 3. Cellulitis, left foot. 4. Morbid obesity. 5. Hypertension. 6. Diabetes mellitus. 7. Coronary artery disease, stable. 8. History of tobacco abuse, ongoing vaping. Job ID: [id number]
--- NOTE | 2020-03-07 18:18 | PDOC.HOSPP ---
- Subjective Encounter Date: 03/07/20 Encounter Time: 18:17 Subjective: Ms. Snow was seen today in follow-up of PVD and diabetic foot infection. No new complaints. She is anxious about the prospect of possible BKA. - Objective Vital Signs & Weight: Vital Signs (12 hours) Temp Pulse Resp BP BP Pulse Ox 03/07/20 17:46 97.3 F L 95 20 154/89 H 03/07/20 17:15 97.6 F 95 16 154/89 H 97 03/07/20 12:06 97.8 F 86 16 144/87 H 99 03/07/20 07:52 96 03/07/20 07:20 98.1 F 90 16 129/67 98 Weight Admit Weight 197 lb Weight 197 lb I&O: 03/06/20 03/07/20 03/08/20 06:59 06:59 06:59 Intake Total 650 2900 50 Output Total 400 Balance 650 2900 -350 Result Diagrams: 03/07/20 07:21 03/07/20 07:21 Additional Labs: Accuchecks 03/07/20 03/07/20 03/07/20 17:56 12:14 05:12 POC Glucose 172 H 265 H 339 H 03/06/20 19:17 POC Glucose 253 H Hospitalist ROS - Medication Medications: Active Medications Generic Name Dose Route Start Last Admin Trade Name Freq PRN Reason Stop Dose Admin Divalproex Sodium 500 mg 03/06/20 21:00 03/06/20 20:40 Depakote PO 500 mg HS KLAUDIA Administration Docusate Sodium 100 mg 03/06/20 14:45 03/06/20 15:11 Colace PO 100 mg DAILYPRN PRN Administration Constipation Enoxaparin Sodium 40 mg 03/06/20 09:00 03/07/20 08:35 Lovenox SC Not Given 0900 KLAUDIA Gabapentin 300 mg 03/06/20 09:00 03/07/20 14:32 Neurontin PO Not Given TID KLAUDIA Cefepime HCl 2 gm/ Sodium 100 mls @ 200 mls/hr 03/06/20 09:00 03/07/20 08:32 Chloride IVPB 100 mls Q12HR KLAUDIA Administration Vancomycin HCl 1 gm/ Device 200 mls @ 200 mls/hr 03/06/20 22:00 03/06/20 21: 12 IVPB 200 mls 2200 KLAUDIA Administration Insulin Glargine 15 units/ 0.15 mls @ 0 mls/hr 03/06/20 21:00 03/06/20 20:42 Miscellaneous Medication SC 0.15 mls HS KLAUDIA Administration Sodium Chloride 1,000 mls @ 75 mls/hr 03/06/20 18:30 03/06/20 21:12 1/2 Normal Saline IV 1,000 mls .[id number] KLAUDIA Administration Insulin Human Lispro 0 units 03/06/20 02:35 03/07/20 17:57 Humalog SC 2 unit .MODERATE SLIDING SC PRN Administration Moderate Correctional Scale - Exam Eye: PERRL, anicteric sclera Heart: RRR, no murmur, no gallops, no rubs, normal peripheral pulses Respiratory: CTAB, no wheezes, no rales, no ronchi Gastrointestinal: soft, non-tender, non-distended, normal bowel sounds Extremities: no cyanosis, 1+ LE edema (wound photos noted) Hosp A/P (1) Type 1 diabetes mellitus with diabetic foot infection Code(s): E10.628 - TYPE 1 DIABETES MELLITUS WITH OTHER SKIN COMPLICATIONS; L08.9 - LOCAL INFECTION OF THE SKIN AND SUBCUTANEOUS TISSUE, UNSP Status: Acute (2) Diabetic peripheral neuropathy Code(s): E11.42 - TYPE 2 DIABETES MELLITUS WITH DIABETIC POLYNEUROPATHY Status : Chronic (3) Diabetes mellitus type 2 in obese Code(s): E11.69 - TYPE 2 DIABETES MELLITUS WITH OTHER SPECIFIED COMPLICATION; E66.9 - OBESITY, UNSPECIFIED Status: Chronic (4) Hypertension Code(s): I10 - ESSENTIAL (PRIMARY) HYPERTENSION Status: Chronic (5) BOBBY (acute kidney injury) Code(s): N17.9 - ACUTE KIDNEY FAILURE, UNSPECIFIED Status: Acute (6) CAD (coronary artery disease) Code(s): I25.10 - ATHSCL HEART DISEASE OF [place] CORONARY ARTERY W/O ANG PCTRS Status: Chronic (7) COPD (chronic obstructive pulmonary disease) Status: Chronic (8) PVD (peripheral vascular disease) Code(s): I73.9 - PERIPHERAL VASCULAR DISEASE, UNSPECIFIED Status: Acute - Plan * Diabetic foot infection with severe peripheral vascular disease-await findings of angiogram * Surgery evaluation appreciated * Will continue broad spectrum antibiotics * DM- her blood glucose is elevated- continue to titrate the dose of insulin as needed * CAD- stable * Acute kidney injury-improving * HTN- blood pressure is stable
[2020-03-07] MEDS: Divalproex Sodium DR 500 MG TAB PO SCH (20:32)
[2020-03-07] MEDS: Insulin Glargine 15 UNITS in Pre-Filled Syringe 1 EACH SC SCH (20:34)
[2020-03-07] MEDS: Sodium Chloride 0.45% 1,000 ML IV SCH (20:35)
[2020-03-07 21:14] LABS: Vancomycin, Trough 6.7 ug/mL
[2020-03-07] MEDS: Vancomycin 1 GM in Premix Bag 1 BAG IVPB SCH (22:11)
--- NOTE | 2020-03-07 22:25 | OP ---
DATE OF PROCEDURE: 03/07/2020 PROCEDURE PERFORMED: Aortography with bilateral iliofemoral arteriography and selective left lower extremity arteriography with common femoral positioning of the catheter. PREOPERATIVE DIAGNOSIS: Peripheral vascular disease with ischemic tissue loss, left lower extremity. POSTOPERATIVE DIAGNOSIS: Peripheral vascular disease with ischemic tissue loss, left lower extremity. ANESTHESIA: 1% lidocaine, local anesthesia with intravenous sedation consisting of 1 mg of Versed and 50 mcg of fentanyl. INDICATIONS FOR PROCEDURE: The patient is a 65-year-old diabetic woman with a long smoking history and known peripheral vascular disease. She has undergone percutaneous revascularization procedures on both legs and about 2-1/2 years ago, she underwent emergent femoral-popliteal bypass grafting with endarterectomies of both the common femoral and the popliteal. After she abruptly occluded her left lower extremity after percutaneous procedure a few months earlier, she now presents with progressive ischemic ulceration on her left foot and she was now taken to the [facility] for arteriography to plan attempted revascularization. FINDINGS: Total contrast used 40 mL. Fluoroscopy time 19.2 minutes. The aorta was somewhat small and diseased distally. The common femoral was diseased at the level of the previous proximal anastomosis and although her profunda was long and arborized extensively, it was only a little bit larger than the 5-Chadian catheter used to perform the arteriograms and had a proximal occlusion. The profunda collaterals reconstituted diseased distal SFA or proximal above knee popliteal artery that was small, the anterior tibial and the tibioperoneal trunk occluded at about the level of the distal screw and some tibial hardware. The posterior tibial reconstituted a couple of 3 cm beyond that, but had very sluggish flow, had scattered areas of disease and never could be seen to cross into the foot. DESCRIPTION OF PROCEDURE: After informed consent was obtained, the patient was taken to the [facility] and placed in the supine position on the cardiac catheterization table. Her groins were prepped and draped in sterile fashion and she was given sedation consisting of 1 mg of Versed and 50 mcg of fentanyl IV. Her right femoral pulse was palpated and then the groin interrogated ultrasonographically. The common femoral artery and vein were identified. 1% lidocaine was used to infiltrate the skin and subcutaneous tissues overlying the common femoral artery. A micro puncture needle was used to cannulate the femoral artery. Two or three attempts had to be made in order to be able to successfully pass the wire and intraluminal arterial positioning was confirmed by fluoroscopy. The needle was removed and the micropuncture sheath was placed. There was good blood return from it. A larger guidewire was passed. A small skin geoffrey was made at the exit site of the wire after removing the micro puncture sheath and a 5-Chadian sheath advanced under fluoroscopy. A Contra catheter over wire was advanced into the aorta and aortography was performed imaging the distal aorta and the iliofemoral segments. The distal aorta was diseased and was slightly small caliber and the Contra catheter had to be advanced more proximally and it was not feasible to get a wire down into the left iliac system with the tip of the Contra catheter on the left side, but only on the right. Multiple manipulations of it were required. The wire multiple times passed into the internal iliac and attempts using an angled wire to get over the horn of the aortic bifurcation of the left iliac system were unsuccessful after several attempts at maneuvering the Contra catheter into were made. The [employer] wire was withdrawn and an angled Glidewire was placed, this could be guided into the external iliac using the Contra catheter. It was advanced down into the femoral level and then the Contra catheter was removed and an angled catheter that was 5-Chadian in caliber was placed into the iliofemoral system. Serially injections were made to image the common femoral and its bifurcation, the distal SFA, the popliteal and its trifurcation and then runoff to the foot. Flow below the occluded tibioperoneal trunk and anterior tibial was quite sluggish. The peroneal and anterior tibial could not be seen reconstituting the posterior tibial, was small and had areas of stenosis and never could be demonstrated to cross into the foot in spite of several attempts with delaying fluoroscopy after injection in order to capture flow at the level of the ankle. A guidewire was passed and the catheter removed over the wire. The sheath was removed, and hemostasis achieved with direct pressure. The patient was then taken to the recovery area in stable condition. Job ID: [id number]
[2020-03-08] MEDS: HumaLOG 300 UNITS/3 ML VIAL SC PRN ×3 (05:05→16:08)
[2020-03-08 05:51] LABS: #Eosinphils 0.4 thou/uL (0.0-0.7); #Lymphocytes 2.6 thou/uL (1.20-3.40); #Monocytes 0.6 thou/uL (0.11-0.59); %Basophils 0.3 % (0.0-1.0); %Eosinophils 3.5 % (0.0-10.0); %Lymphocytes 20.2 % (21.0-51.0); %Monocytes 4.6 % (0.0-10.0); %Neutrophils 71.3 % (42.0-75.0); Hemoglobin 11.1 g/dL (12.0-16.0); Mean Corpuscular HGB CONC 32.4 g/dL (32.0-36.0); Mean Corpuscular Hemoglobin 29.9 pg (27.0-31.0); Mean Corpuscular Volume 92.5 fL (78.0-98.0); Mean Platelet Volume 8.9 fL (7.4-10.4); Platelet Count 278 thou/uL (130-400); Red Blood Cell (RBC) Count 3.72 mill/uL (4.20-5.40); White Blood Cell (WBC) Count 12.6 thou/uL (4.8-10.8)
[2020-03-08 06:07] LABS: Anion Gap 11 mmol/L (10-20); BUN (Urea Nitrogen) 12 mg/dL (9.8-20.1); Calc. Creatinine Clearance 83 mL/min (70-130); Calcium 8.4 mg/dL (7.8-10.44); Carbon Dioxide 24 mmol/L (23-31); Chloride 104 mmol/L (98-107); Estimated GFR-MDRD 57; Glucose 311 mg/dL (80-115); Potassium 4.2 mmol/L (3.5-5.1); Sodium 135 mmol/L (136-145)
--- NOTE | 2020-03-08 07:27 | PDOC.HOSPP ---
- Subjective Encounter Date: 03/08/20 Encounter Time: 08:00 Subjective: Ms. Snow was seen today for follow-up of diabetic foot infection and PVD. She had no events overnight and no new complaints this morning. She remains anxious about the BKA, which is planned for 03/09. Wounds had drainage through the bandage and she is ambulatory. Patient denies nausea, vomit, fever, chills , palpitations, headache. - Objective Vital Signs & Weight: Vital Signs (12 hours) Temp Pulse Resp BP BP Pulse Ox 03/08/20 07:01 98.4 F 86 18 116/70 96 03/08/20 03:43 97.5 F L 94 18 121/66 95 03/08/20 00:29 98.6 F 93 18 96/61 97 03/07/20 20:30 98 03/07/20 19:46 98 F 98 18 144/88 H 98 Weight Admit Weight 197 lb Weight 197 lb I&O: 03/07/20 03/08/20 03/09/20 06:59 06:59 06:59 Intake Total 2900 1400 Output Total 400 Balance 2900 1000 Result Diagrams: 03/08/20 05:36 03/08/20 05:35 Additional Labs: Accuchecks 03/08/20 03/07/20 03/07/20 05:07 19:57 17:56 POC Glucose 346 H 155 H 172 H 03/07/20 12:14 POC Glucose 265 H Hospitalist ROS - Review of Systems Constitutional: denies: fever, chills Eyes: denies: pain, vision change ENT: denies: ear pain, nose pain, nose congestion, throat pain Respiratory: denies: cough, shortness of breath Cardiovascular: denies: chest pain, palpitations, light headedness Gastrointestinal: reports: diarrhea. denies: nausea, vomiting, abdominal pain, constipation Genitourinary: denies: dysuria, frequency Neurological: reports: numbness (diminished sensation in bilateral LE). denies : weakness All other systems reviewed; all pertinent +/- noted in HPI/Subj - Medication Medications: Active Medications Generic Name Dose Route Start Last Admin Trade Name Freq PRN Reason Stop Dose Admin Divalproex Sodium 500 mg 03/06/20 21:00 03/07/20 20:32 Depakote PO 500 mg HS KLAUDIA Administration Docusate Sodium 100 mg 03/06/20 14:45 03/06/20 15:11 Colace PO 100 mg DAILYPRN PRN Administration Constipation Enoxaparin Sodium 40 mg 03/06/20 09:00 03/07/20 08:35 Lovenox SC Not Given 0900 KLAUDIA Gabapentin 300 mg 03/06/20 09:00 03/07/20 20:34 Neurontin PO 300 mg TID KLAUDIA Administration Cefepime HCl 2 gm/ Sodium 100 mls @ 200 mls/hr 03/06/20 09:00 03/07/20 20:30 Chloride IVPB 100 mls Q12HR KLAUDIA Administration Insulin Glargine 15 units/ 0.15 mls @ 0 mls/hr 03/06/20 21:00 03/07/20 20:34 Miscellaneous Medication SC 0.15 mls HS KLAUDIA Administration Sodium Chloride 1,000 mls @ 75 mls/hr 03/06/20 18:30 03/07/20 20:35 1/2 Normal Saline IV 1,000 mls .[id number] KLAUDIA Administration Vancomycin HCl 1 gm/ Device 200 mls @ 200 mls/hr 03/07/20 22:00 03/07/20 22: 11 IVPB 200 mls 1000,2200 KLAUDIA Administration Insulin Human Lispro 0 units 03/06/20 02:35 03/08/20 05:05 Humalog SC 8 unit .MODERATE SLIDING SC PRN Administration Moderate Correctional Scale - Exam General Appearance: NAD, awake alert Eye: PERRL, anicteric sclera ENT: normocephalic atraumatic, moist mucosa Neck: supple, symmetric Heart: RRR, no murmur, no gallops, no rubs, normal peripheral pulses Respiratory: CTAB, no wheezes, no rales, no ronchi, normal chest expansion Gastrointestinal: soft, non-tender, non-distended, normal bowel sounds, no hepatomegaly, no splenomegaly Extremities: no cyanosis, 1+ LE edema Skin: normal turgor Skin - other findings: left foot with multiple lesions and drainage Neurological: no weakness, no new deficit Musculoskeletal: normal tone, normal strength Psychiatric: normal behavior, A&O x 3 Hosp A/P (1) Type 1 diabetes mellitus with diabetic foot infection Code(s): E10.628 - TYPE 1 DIABETES MELLITUS WITH OTHER SKIN COMPLICATIONS; L08.9 - LOCAL INFECTION OF THE SKIN AND SUBCUTANEOUS TISSUE, UNSP Status: Acute (2) Diabetic peripheral neuropathy Code(s): E11.42 - TYPE 2 DIABETES MELLITUS WITH DIABETIC POLYNEUROPATHY Status : Chronic (3) Diabetes mellitus type 2 in obese Code(s): E11.69 - TYPE 2 DIABETES MELLITUS WITH OTHER SPECIFIED COMPLICATION; E66.9 - OBESITY, UNSPECIFIED Status: Chronic (4) Hypertension Code(s): I10 - ESSENTIAL (PRIMARY) HYPERTENSION Status: Chronic (5) BOBBY (acute kidney injury) Code(s): N17.9 - ACUTE KIDNEY FAILURE, UNSPECIFIED Status: Acute (6) CAD (coronary artery disease) Code(s): I25.10 - ATHSCL HEART DISEASE OF [place] CORONARY ARTERY W/O ANG PCTRS Status: Chronic (7) COPD (chronic obstructive pulmonary disease) Status: Chronic (8) PVD (peripheral vascular disease) Code(s): I73.9 - PERIPHERAL VASCULAR DISEASE, UNSPECIFIED Status: Acute - Plan * Diabetic foot infection with severe peripheral vascular disease- * She will go to surgery tomorrow, and most likely need a BKA * Will continue broad spectrum antibiotics * DM- her blood glucose is elevated- continue to titrate the dose of insulin as needed * CAD- stable * Acute kidney injury-improving * HTN- blood pressure is stable * * Patient seen and examined and discussed with Randall Babin MS-3. She does not have any new complaints. Agree with the documented exam. She will need surgery tomorrow, likely a BKA. Will continue to titrate insulin as needed. All questions answered and will discuss with her as well.
[2020-03-08] MEDS: Cefepime 2 GM in Sodium Chloride 0.9% 100 ML IVPB SCH ×2 (08:07→20:06)
[2020-03-08] MEDS: Gabapentin 300 MG CAP PO SCH ×3 (08:08→20:06)
[2020-03-08] MEDS: Vancomycin 1 GM in Premix Bag 1 BAG IVPB SCH ×2 (08:08→22:17)
[2020-03-08] MEDS: Enoxaparin Sodium 40 MG/0.4 ML SYRINGE SC SCH ×2 (08:08→08:33)
[2020-03-08] MEDS: Sodium Chloride 0.45% 1,000 ML IV SCH (08:11)
[2020-03-08] MEDS: Insulin Glargine 12 UNITS in Pre-Filled Syringe 1 EACH SC SCH (08:17)
--- NOTE | 2020-03-08 16:12 | PRG ---
DATE OF SERVICE: 03/08/2020 SUBJECTIVE: Ms. Menendez is doing well today. Dr. Segundo did an arteriogram yesterday, and she has occlusion of her SFA. She has a very small profunda femoral artery with abundant collateralization. There is nothing can be done for intervention or surgical standpoint to improve the circulation to her leg. We would recommend left below-knee amputation. The patient is agreeable. We will plan that tomorrow. She understands risks and benefits and consents. Job ID: [id number]
[2020-03-08] MEDS: Divalproex Sodium DR 500 MG TAB PO SCH (20:06)
[2020-03-08 21:29] LABS: Vancomycin, Trough 7.8 ug/mL
[2020-03-08] MEDS: Vancomycin 1.5 GRAM/300 ML BAG 1.5 GM in Premix Bag 1 BAG IVPB SCH (23:30)
[2020-03-09] MEDS: HumaLOG 300 UNITS/3 ML VIAL SC PRN ×4 (05:36→20:14)
--- NOTE | 2020-03-09 07:37 | PDOC.HOSPP ---
- Subjective Encounter Date: 03/09/20 Encounter Time: 07:00 Subjective: Ms. Snow was seen today for follow-up of diabetic foot infection and PVD. She had no events overnight and no new complaints. She was less anxious about the BKA this morning. Wounds on the foot continued to have drainage, minimal tenderness, and she is ambulatory. Patient denies new fever, chills, nausea, vomit, palpitations, headache. - Objective Vital Signs & Weight: Vital Signs (12 hours) Temp Pulse Resp BP Pulse Ox 03/09/20 07:29 98.5 F 89 18 136/83 100 03/09/20 07:12 97.7 F 72 20 152/67 H 94 L 03/09/20 06:00 98.1 F 91 16 139/77 98 03/08/20 20:00 98.3 F 91 16 135/83 95 Weight Admit Weight 197 lb Weight 197 lb I&O: 03/08/20 03/09/20 03/10/20 06:59 06:59 06:59 Intake Total 1400 950 Output Total 400 Balance 1000 950 Result Diagrams: 03/09/20 07:21 03/09/20 07:21 Additional Labs: Accuchecks 03/09/20 03/08/20 03/08/20 04:54 19:54 15:17 POC Glucose 312 H 200 H 267 H 03/08/20 11:08 POC Glucose 354 H Hospitalist ROS - Review of Systems Constitutional: denies: fever, chills, weakness Eyes: denies: pain, vision change ENT: denies: ear pain, nose pain, throat pain Respiratory: denies: cough, shortness of breath Cardiovascular: denies: chest pain, palpitations, light headedness Gastrointestinal: denies: nausea, vomiting, abdominal pain, diarrhea, constipation Genitourinary: denies: dysuria, frequency Skin: denies: rash, lesions Neurological: denies: weakness All other systems reviewed; all pertinent +/- noted in HPI/Subj - Medication Medications: Active Medications Generic Name Dose Route Start Last Admin Trade Name Freq PRN Reason Stop Dose Admin Divalproex Sodium 500 mg 03/06/20 21:00 03/08/20 20:06 Depakote PO 500 mg HS KLAUDIA Administration Docusate Sodium 100 mg 03/06/20 14:45 03/06/20 15:11 Colace PO 100 mg DAILYPRN PRN Administration Constipation Enoxaparin Sodium 40 mg 03/06/20 09:00 03/08/20 08:33 Lovenox SC Not Given 0900 KLAUDIA Gabapentin 300 mg 03/06/20 09:00 03/08/20 20:06 Neurontin PO 300 mg TID KLAUDIA Administration Cefepime HCl 2 gm/ Sodium 100 mls @ 200 mls/hr 03/06/20 09:00 03/08/20 20:06 Chloride IVPB 100 mls Q12HR KLAUDIA Administration Insulin Glargine 12 units/ 0.12 mls @ 0 mls/hr 03/08/20 09:00 03/08/20 08:17 Miscellaneous Medication SC 0.12 mls QAM KLAUDIA Administration Vancomycin HCl 1.5 gm/ Device 300 mls @ 200 mls/hr 03/08/20 23:00 03/08/20 23 :30 IVPB 300 mls 1100,2300 KLAUDIA Administration Insulin Human Lispro 0 units 03/06/20 02:35 03/09/20 05:36 Humalog SC 8 unit .MODERATE SLIDING SC PRN Administration Moderate Correctional Scale - Exam General Appearance: NAD, awake alert Eye: PERRL, anicteric sclera ENT: normocephalic atraumatic, moist mucosa Neck: supple, symmetric Heart: RRR, no murmur, no gallops, no rubs, normal peripheral pulses Respiratory: CTAB, no wheezes, no rales, no ronchi, normal chest expansion Gastrointestinal: soft, non-tender Extremities: no cyanosis, 1+ LE edema (left LE) Skin: normal turgor Neurological: no weakness, no new deficit Musculoskeletal: normal tone, normal strength Psychiatric: normal behavior, A&O x 3 Hosp A/P (1) Type 1 diabetes mellitus with diabetic foot infection Code(s): E10.628 - TYPE 1 DIABETES MELLITUS WITH OTHER SKIN COMPLICATIONS; L08.9 - LOCAL INFECTION OF THE SKIN AND SUBCUTANEOUS TISSUE, UNSP Status: Acute (2) Diabetic peripheral neuropathy Code(s): E11.42 - TYPE 2 DIABETES MELLITUS WITH DIABETIC POLYNEUROPATHY Status : Chronic (3) Diabetes mellitus type 2 in obese Code(s): E11.69 - TYPE 2 DIABETES MELLITUS WITH OTHER SPECIFIED COMPLICATION; E66.9 - OBESITY, UNSPECIFIED Status: Chronic (4) Hypertension Code(s): I10 - ESSENTIAL (PRIMARY) HYPERTENSION Status: Chronic (5) BOBBY (acute kidney injury) Code(s): N17.9 - ACUTE KIDNEY FAILURE, UNSPECIFIED Status: Acute (6) CAD (coronary artery disease) Code(s): I25.10 - ATHSCL HEART DISEASE OF [place] CORONARY ARTERY W/O ANG PCTRS Status: Chronic (7) COPD (chronic obstructive pulmonary disease) Status: Chronic (8) PVD (peripheral vascular disease) Code(s): I73.9 - PERIPHERAL VASCULAR DISEASE, UNSPECIFIED Status: Acute - Plan * Diabetic foot infection with severe peripheral vascular disease- * She is s/p left BKA * Will continue broad spectrum antibiotics * DM- poorly controlled- continue to titrate insulin * CAD- stable * Acute kidney injury-improving * HTN- blood pressure is stable * * Patient seen and examined and discussed with Randall Babin MS-3. She notes some sharp pains in her left foot, like she can still feel her toes. On exam, her lungs are clear, and heart sounds are normal. she is post left BKA, and the wound is dressed. Will continue to titrate insulin as needed.
[2020-03-09 07:44] LABS: #Eosinphils 0.6 thou/uL (0.0-0.7); #Lymphocytes 2.2 thou/uL (1.20-3.40); #Monocytes 0.8 thou/uL (0.11-0.59); #Neutrophils 9.3 thou/uL (1.40-6.50); %Basophils 0.4 % (0.0-1.0); %Eosinophils 4.3 % (0.0-10.0); %Lymphocytes 17.1 % (21.0-51.0); %Monocytes 5.9 % (0.0-10.0); %Neutrophils 72.3 % (42.0-75.0); Hemoglobin 11.4 g/dL (12.0-16.0); Mean Corpuscular HGB CONC 31.9 g/dL (32.0-36.0); Mean Corpuscular Hemoglobin 29.6 pg (27.0-31.0); Mean Platelet Volume 9.2 fL (7.4-10.4); Platelet Count 271 thou/uL (130-400); RBC Distribution Width 12.1 % (11.5-14.5); Red Blood Cell (RBC) Count 3.85 mill/uL (4.20-5.40); White Blood Cell (WBC) Count 12.9 thou/uL (4.8-10.8)
[2020-03-09] MEDS: Enoxaparin Sodium 40 MG/0.4 ML SYRINGE SC SCH (07:55)
[2020-03-09] MEDS: Gabapentin 300 MG CAP PO SCH ×3 (07:56→20:13)
[2020-03-09] MEDS ORDERED: Sodium Chloride 0.9% 1,000 ML IV SCH (08:00)
[2020-03-09 08:07] LABS: Anion Gap 14 mmol/L (10-20); BUN (Urea Nitrogen) 12 mg/dL (9.8-20.1); Calc. Creatinine Clearance 83 mL/min (70-130); Calcium 8.3 mg/dL (7.8-10.44); Carbon Dioxide 22 mmol/L (23-31); Chloride 104 mmol/L (98-107); Estimated GFR-MDRD 57; Glucose 329 mg/dL (80-115); Potassium 4.1 mmol/L (3.5-5.1); Sodium 136 mmol/L (136-145)
[2020-03-09] MEDS ORDERED: Midazolam HCl 2 mg/2 ml Vial ONE (08:40)
[2020-03-09] MEDS ORDERED: Fentanyl 100 MCG/2 ML VIAL ONE ×3 (08:40→10:55)
[2020-03-09] MEDS ORDERED: HYDROcodone/Acetaminophen 10/325 mg Tablet PO PRN ×2 (09:16)
[2020-03-09] MEDS ORDERED: Fentanyl 100 MCG/2 ML VIAL IV PRN (09:16)
[2020-03-09] MEDS ORDERED: Ropivacaine 0.2% 550 ML 550 ML NERVE BLCK SCH (09:16)
[2020-03-09] MEDS ORDERED: Ondansetron PF 4 MG/2 ML Vial IVP PRN (09:16)
[2020-03-09] MEDS ORDERED: Zolpidem Tartrate 5 MG TAB PO PRN (09:16)
[2020-03-09] MEDS ORDERED: Promethazine HCl 25 MG/ML VIAL IM PRN ×2 (09:16→10:37)
[2020-03-09] MEDS ORDERED: Acetaminophen 325 MG TAB PO PRN (09:16)
[2020-03-09] MEDS ORDERED: Acetaminophen 500 MG TAB PO PRN (09:42)
[2020-03-09] MEDS ORDERED: EPHEDRINE 25 MG/5 ML SYRINGE ONE (10:20)
[2020-03-09] MEDS ORDERED: PROPOFOL 200 MG/20 ML VIAL ONE (10:20)
[2020-03-09] MEDS ORDERED: PHENYLEPHRINE-NS 100 MCG/ML 10 ML SYRINGE ONE (10:20)
[2020-03-09] MEDS ORDERED: Ondansetron PF 4 MG/2 ML Vial ONE (10:20)
[2020-03-09] MEDS ORDERED: Lidocaine 1% PF 5 ML VIAL ONE (10:20)
[2020-03-09] MEDS ORDERED: Bupivacaine HCl 0.5%/Epinephrine 1:200,000/PF 30 ml Vial ONE (10:20)
[2020-03-09] MEDS ORDERED: Promethazine HCl 25 MG/ML VIAL SLOW IVP PRN (10:37)
[2020-03-09] MEDS ORDERED: Ondansetron HCl/PF 4 MG/2 ML Vial IVP PRN (10:37)
--- NOTE | 2020-03-09 11:35 | OP ---
DATE OF PROCEDURE: 03/08/2020 PREOPERATIVE DIAGNOSES: 1. Peripheral vascular disease. 2. Ischemic left foot gangrene, heel dorsum and toes. POSTOPERATIVE DIAGNOSES: 1. Peripheral vascular disease. 2. Ischemic left foot gangrene, heel dorsum and toes. PROCEDURE PERFORMED: Left [id number] amputation. ANESTHESIA: General anesthesia and regional, infusion catheter. ESTIMATED BLOOD LOSS: Less than 150. BLOOD TRANSFUSIONS: None. Preoperative hemoglobin 12. Note, the patient was seen by Dr. Segundo. Femoral-popliteal performed with endarterectomy 2-1/2 to 3 years ago. Repeat intervention and arteriography revealed severe disease, unable to improve the blood supply, occluded SFA with small profunda with abundant collateralization. DESCRIPTION OF PROCEDURE: The patient was taken to the operating room where under the above-mentioned anesthesia, left lower extremity was prepared with ChloraPrep and draped in routine fashion. An incision was made for a BKA with a long posterior flap, carried down to skin, subcutaneous tissue, and fascia, dividing muscular bundles with cautery, dividing vascular bundles and nerves between clamps, ligating with 2-0 silk ties. Tibia periosteum raised proximally and tibia transected with a Gigli saw, bevelling the anterior edge cephalad, smoothing the edges with a rasp, and fibula cut with bone cutter an inch above the cut edge of the tibia. Wound irrigated. Good hemostasis obtained with cautery and 2-0 silk ties. Fascia approximated with 2-0 Vicryl suture and skin with corrina. Sterile dressing applied. Job ID: [id number]
[2020-03-09] MEDS: Insulin Glargine 12 UNITS in Pre-Filled Syringe 1 EACH SC SCH (11:48)
[2020-03-09] MEDS: Cefepime 2 GM in Sodium Chloride 0.9% 100 ML IVPB SCH ×2 (11:49→20:13)
[2020-03-09] MEDS: Vancomycin 1.5 GRAM/300 ML BAG 1.5 GM in Premix Bag 1 BAG IVPB SCH ×2 (11:49→23:08)
--- NOTE | 2020-03-09 11:51 | EKG ---
Test Reason : ROUTINE Blood Pressure : / mmHG Vent. Rate : 092 BPM Atrial Rate : 092 BPM P-R Int : 156 ms QRS Dur : 082 ms QT Int : 380 ms P-R-T Axes : 070 034 069 degrees QTc Int : 469 ms Normal sinus rhythm Normal ECG No previous ECGs available Confirmed by JEANA PONCE ([id number]) on 03/09/2020 11:51:19 AM Referred By: MIKI HANSEN Confirmed By:JEANA PONCE
[2020-03-09] MEDS: Ketorolac Tromethamine 30 MG/ML VIAL IVP SCH ×3 (11:52→23:08)
[2020-03-09] MEDS: Divalproex Sodium DR 500 MG TAB PO SCH (20:13)
[2020-03-09] MEDS ORDERED: Insulin Glargine 28 UNITS in Pre-Filled Syringe SC SCH (21:00)
[2020-03-10] MEDS: Ketorolac Tromethamine 30 MG/ML VIAL IVP SCH ×3 (05:27→17:27)
[2020-03-10] MEDS: HumaLOG 300 UNITS/3 ML VIAL SC PRN ×3 (05:29→15:55)
[2020-03-10 06:14] LABS: Anion Gap 13 mmol/L (10-20); BUN (Urea Nitrogen) 17 mg/dL (9.8-20.1); Calc. Creatinine Clearance 67 mL/min (70-130); Calcium 8.1 mg/dL (7.8-10.44); Carbon Dioxide 23 mmol/L (23-31); Chloride 103 mmol/L (98-107); Estimated GFR-MDRD 45; Glucose 227 mg/dL (80-115); Potassium 4.3 mmol/L (3.5-5.1); Sodium 135 mmol/L (136-145)
[2020-03-10 06:29] LABS: #Eosinphils 0.7 thou/uL (0.0-0.7); #Lymphocytes 1.8 thou/uL (1.20-3.40); #Monocytes 0.4 thou/uL (0.11-0.59); #Neutrophils 9.9 thou/uL (1.40-6.50); %Basophils 0.2 % (0.0-1.0); %Eosinophils 5.2 % (0.0-10.0); %Lymphocytes 13.9 % (21.0-51.0); %Monocytes 3.2 % (0.0-10.0); %Neutrophils 77.5 % (42.0-75.0); Hemoglobin 10.3 g/dL (12.0-16.0); Mean Corpuscular HGB CONC 32.3 g/dL (32.0-36.0); Mean Corpuscular Hemoglobin 30.5 pg (27.0-31.0); Mean Corpuscular Volume 94.3 fL (78.0-98.0); Platelet Count 251 thou/uL (130-400); Red Blood Cell (RBC) Count 3.38 mill/uL (4.20-5.40); White Blood Cell (WBC) Count 12.7 thou/uL (4.8-10.8)
--- NOTE | 2020-03-10 07:41 | PDOC.HOSPP ---
- Subjective Encounter Date: 03/10/20 Encounter Time: 08:05 Subjective: Ms. Snow was seen today in follow-up of diabetic foot infection, PVD, and status post BKA. She had no events overnight. She complains of shooting pains in the left leg throughout the night, which disrupted her sleep. She also complains of soreness of the left knee and received Toradol. She was nauseous overnight and was given Zofran. Patient denies new onset fever, chills, vomit, palpitations, headache. - Objective Vital Signs & Weight: Vital Signs (12 hours) Temp Pulse Resp BP BP BP Pulse Ox 03/10/20 07:20 98.2 F 95 16 153/78 H 95 03/10/20 04:00 97.6 F 86 18 134/83 97 03/10/20 00:00 97.9 F 75 16 106/71 96 03/09/20 19:41 97.8 F 84 16 115/62 96 Weight Admit Weight 197 lb Weight 197 lb I&O: 03/09/20 03/10/20 03/11/20 06:59 06:59 06:59 Intake Total 950 2330 Balance 950 2330 Result Diagrams: 03/10/20 05:40 03/10/20 05:40 Additional Labs: Accuchecks 03/10/20 03/09/20 03/09/20 05:06 19:52 16:45 POC Glucose 229 H 328 H 372 H 03/09/20 03/09/20 11:44 08:36 POC Glucose 333 H 317 H Hospitalist ROS - Review of Systems Constitutional: denies: fever, chills Eyes: denies: pain, vision change ENT: denies: ear pain, nose pain, throat pain Respiratory: denies: cough, shortness of breath Cardiovascular: denies: chest pain, palpitations, light headedness Gastrointestinal: denies: nausea, vomiting, abdominal pain, diarrhea, constipation Genitourinary: denies: dysuria, frequency Skin: denies: rash, lesions Neurological: denies: weakness, numbness All other systems reviewed; all pertinent +/- noted in HPI/Subj - Medication Medications: Active Medications Generic Name Dose Route Start Last Admin Trade Name Freq PRN Reason Stop Dose Admin Divalproex Sodium 500 mg 03/06/20 21:00 03/09/20 20:13 Depakote PO 500 mg HS KLAUDIA Administration Docusate Sodium 100 mg 03/06/20 14:45 03/06/20 15:11 Colace PO 100 mg DAILYPRN PRN Administration Constipation Enoxaparin Sodium 40 mg 03/06/20 09:00 03/09/20 07:55 Lovenox SC Not Given 0900 KLAUDIA Gabapentin 300 mg 03/06/20 09:00 03/09/20 20:13 Neurontin PO 300 mg TID KLAUDIA Administration Cefepime HCl 2 gm/ Sodium 100 mls @ 200 mls/hr 03/06/20 09:00 03/09/20 20:13 Chloride IVPB 100 mls Q12HR KLAUDIA Administration Vancomycin HCl 1.5 gm/ Device 300 mls @ 200 mls/hr 03/08/20 23:00 03/09/20 23 :08 IVPB 300 mls 1100,2300 KLAUDIA Administration Insulin Glargine 28 units/ 0.28 mls @ 0 mls/hr 03/09/20 21:00 03/09/20 20:14 Miscellaneous Medication SC 0.28 mls HS KLAUDIA Administration Insulin Human Lispro 0 units 03/06/20 02:35 03/10/20 05:29 Humalog SC 4 unit .MODERATE SLIDING SC PRN Administration Moderate Correctional Scale Ketorolac Tromethamine 30 mg 03/09/20 12:00 03/10/20 05:27 Toradol IVP 03/11/20 06:01 30 mg Q6HR KLAUDIA Administration Ondansetron HCl 4 mg 03/06/20 02:35 03/10/20 05:27 Zofran IVP 4 mg Q6H PRN Administration Nausea/Vomiting Sodium Chloride 10 ml 03/09/20 21:00 03/09/20 20:23 Flush - Normal Saline IVF 10 ml Q12HR KLAUDIA Administration - Exam General Appearance: NAD, awake alert Eye: PERRL, anicteric sclera ENT: normocephalic atraumatic, moist mucosa Neck: supple, symmetric Heart: RRR, no murmur, no gallops, no rubs, normal peripheral pulses Respiratory: CTAB, no wheezes, no rales, no ronchi Gastrointestinal: soft, non-tender, non-distended Extremities: no cyanosis, no edema Skin: normal turgor, no lesions Skin - other findings: bandage on left leg at the knee Neurological: normal sensation to touch, no weakness, no new deficit Musculoskeletal: normal tone, normal strength Psychiatric: normal behavior, A&O x 3 Hosp A/P (1) Type 1 diabetes mellitus with diabetic foot infection Code(s): E10.628 - TYPE 1 DIABETES MELLITUS WITH OTHER SKIN COMPLICATIONS; L08.9 - LOCAL INFECTION OF THE SKIN AND SUBCUTANEOUS TISSUE, UNSP Status: Acute (2) Diabetic peripheral neuropathy Code(s): E11.42 - TYPE 2 DIABETES MELLITUS WITH DIABETIC POLYNEUROPATHY Status : Chronic (3) Diabetes mellitus type 2 in obese Code(s): E11.69 - TYPE 2 DIABETES MELLITUS WITH OTHER SPECIFIED COMPLICATION; E66.9 - OBESITY, UNSPECIFIED Status: Chronic (4) Hypertension Code(s): I10 - ESSENTIAL (PRIMARY) HYPERTENSION Status: Chronic (5) BOBBY (acute kidney injury) Code(s): N17.9 - ACUTE KIDNEY FAILURE, UNSPECIFIED Status: Acute (6) CAD (coronary artery disease) Code(s): I25.10 - ATHSCL HEART DISEASE OF [place] CORONARY ARTERY W/O ANG PCTRS Status: Chronic (7) COPD (chronic obstructive pulmonary disease) Status: Chronic (8) PVD (peripheral vascular disease) Code(s): I73.9 - PERIPHERAL VASCULAR DISEASE, UNSPECIFIED Status: Acute - Plan * Diabetic foot infection with severe peripheral vascular disease- * She is s/p left BKA * Will continue broad spectrum antibiotics * DM- poorly controlled- continue to titrate insulin * CAD- stable * Acute kidney injury-improving * HTN- blood pressure is stable * PT evaluation for today * * Patient seen and examined and discussed with Randall Babin MS-3. She notes some pain in her left leg, and some phantom pain. On exam a systolic murmur was noted. She has been cleared for transfer to Rehab. She can be taken off antibiotics. Stable for trasnfer today.
[2020-03-10] MEDS: Cefepime 2 GM in Sodium Chloride 0.9% 100 ML IVPB SCH (08:50)
[2020-03-10] MEDS: Gabapentin 300 MG CAP PO SCH ×2 (08:50→15:53)
[2020-03-10] MEDS ORDERED: Insulin Glargine 28 UNITS in Pre-Filled Syringe SC SCH (09:00)
[2020-03-10] MEDS ORDERED: Polyethylene Glycol 3350 17 GM Packet PO SCH (09:00)
[2020-03-10 11:00] LABS: Vancomycin, Trough 34.5 ug/mL
[2020-03-10] MEDS: Enoxaparin Sodium 40 MG/0.4 ML SYRINGE SC SCH (11:59)
[2020-03-10] MEDS: Vancomycin 1.5 GRAM/300 ML BAG 1.5 GM in Premix Bag 1 BAG IVPB SCH (13:05)
[2020-03-10 16:23] VITALS: BP 109/66; TEMP 99
--- NOTE | 2020-03-10 16:42 | PRG ---
DATE OF SERVICE: 03/10/2020 SUBJECTIVE: Ms. Menendez is doing well today. Her pain was well controlled with a regional infusion pump, status post BKA yesterday. Hemoglobin is stable. OBJECTIVE: LUNGS: Clear to auscultation. CARDIAC: Regular rate and rhythm without murmur or gallop. ABDOMEN: Soft. The patient is accepted by rehab, can be transferred anytime. We can remove her dressings tomorrow as ordered to nursing communication orders. 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 The patient was informed that she should prevent left knee contracture, keeping a pillow or blanket beneath her left [id number] amputation stump to promote extension. She should keep her right heel off the bed to avoid heel decubitus. I will see in the office in 2 to 3 weeks. Job ID: [id number]
[2020-03-10] MEDS ORDERED: Vancomycin 1.5 GRAM/300 ML BAG 1.5 GM in Premix Bag 1 BAG IVPB SCH (23:00)
--- NOTE | 2020-03-11 02:35 | DIS ---
DATE OF ADMISSION: 03/05/2020 DATE OF DISCHARGE: 03/10/2020 PRIMARY CARE PHYSICIAN: Tacho Sutherland MD DISCHARGE DISPOSITION: Inpatient rehab. DISCHARGE DIAGNOSES: 1. Gangrene of the left foot. 2. Diabetic foot sores. 3. Diabetic peripheral neuropathy. 4. Severe peripheral vascular occlusive disease. 5. Diabetes mellitus type 2. 6. Hypertension. 7. History of former tobacco abuse. DISCHARGE MEDICATIONS: Include; 1. Zofran 4 mg q.6 as needed. 2. Motrin 600 mg q.6 as needed for pain. 3. [place] 10/325 two tablets q.4 as needed. 4. Metformin 500 mg p.o. b.i.d. 5. Lantus insulin 25 units subcu twice a day. 6. Neurontin 300 mg p.o. t.i.d. 7. Divalproex 500 mg extended release at bedtime. 8. Celexa 20 mg daily. 9. ProAir HFA 2 puffs inhaled q.4 hours. PROCEDURES DONE DURING THE HOSPITAL STAY: The patient had a lower extremity arterial Doppler in which there was evidence of an occluded femoral popliteal graft as well as an occluded mid femoral artery, occluded anterior tibial artery, and severe monophasic parvus tardus waveform within the dorsalis pedis and posterior tibial arteries and there was dampened monophasic waveform in the common femoral and proximal femoral artery. The patient had an aortogram with selective left lower extremity angiography. The patient had left sttqw-ysf-xbdj amputation. CODE STATUS: Full code. ALLERGIES: TO TRAMADOL. HOSPITAL COURSE: Ms. Menendez is a very pleasant 65-year-old female, who noted a small area on her foot which started like a blister, but then got progressively worse. She says that she was trying to "doctor it" at home and this was for several weeks. She started to develop a black eschar on the heel as well as the dorsum of the foot as well as some blistering bullous lesions of the toes. She came to the emergency room for evaluation, where she was found to have gangrene of the foot and severe vascular compromise. She was admitted and started on IV antibiotics to help stabilize the infection. Vascular Surgery as well as General Surgery was consulted. She underwent aortogram to see if there was any way to salvage some of the circulation. However, there was no significant arteries which could be salvaged. For this reason, she ultimately had to undergo bvcht-hke-tskm amputation. She had this procedure performed and had an uneventful postoperative course and was able to be transitioned to inpatient rehab. Job ID: [id number]
[2020-03-11] MEDS ORDERED: Ibuprofen 600 MG TAB PO PRN (07:00)
== END 2020-03-10 18:16 | DRG 240 ==
LOC: ERS 19:04 → T4-B 22:22
PROVIDERS: ADMIT Internal Medicine; ATTEND Internal Medicine
PROC: B41DYZZ Fluoroscopy of Aorta and Bilateral Lower Extremity Arteries using Other Contrast (ICD-10-PCS; 2020-03-07)
PROC: 0Y6J0Z1 Detachment at Left Lower Leg, High, Open Approach (ICD-10-PCS; principal; 2020-03-08)
DX: E11.52 Type 2 diabetes mellitus with diabetic peripheral angiopathy with gangrene (principal); L03.116 Cellulitis of left lower limb; N17.9 Acute kidney failure, unspecified; T82.898A Other specified complication of vascular prosthetic devices, implants and grafts, initial encounter; E11.42 Type 2 diabetes mellitus with diabetic polyneuropathy; I25.10 Atherosclerotic heart disease of native coronary artery without angina pectoris; J44.9 Chronic obstructive pulmonary disease, unspecified; I10 Essential (primary) hypertension; F41.9 Anxiety disorder, unspecified; E11.69 Type 2 diabetes mellitus with other specified complication; E11.628 Type 2 diabetes mellitus with other skin complications; E78.00 Pure hypercholesterolemia, unspecified; F32.9 Major depressive disorder, single episode, unspecified; E66.01 Morbid (severe) obesity due to excess calories; E11.621 Type 2 diabetes mellitus with foot ulcer; Y83.2 Surgical operation with anastomosis, bypass or graft as the cause of abnormal reaction of the patient, or of later complication, without mention of misadventure at the time of the procedure; R01.1 Cardiac murmur, unspecified; Z11.59 Encounter for screening for other viral diseases; Z87.891 Personal history of nicotine dependence; Z88.8 Allergy status to other drugs, medicaments and biological substances; Z79.84 Long term (current) use of oral hypoglycemic drugs; Z79.4 Long term (current) use of insulin; Z68.33 Body mass index [BMI] 33.0-33.9, adult; Z95.1 Presence of aortocoronary bypass graft
CPT/HCPCS: 36246; 36415; 36416; 36600; 75710; 76942; 80048; 80053; 80202; 85007; 85025; 85027; 85652; 86140; 87635; 88307; 93005; 93010; 93923; 96365; 96366; 96368; 96375; A4306; J0670; J0692; J1644; J1650; J1815; J1885; J2250; J2405; J2704; J2795; J3010; J3370; J3490; Q9967; U0003

== ENCOUNTER 2020-04-27 12:10 | Inpatient (IN) | payer MEDICARE, OTHER ==
[2020-04-27 13:16] LABS: #Eosinphils 0.3 thou/uL (0.0-0.7); #Lymphocytes 1.7 thou/uL (1.20-3.40); #Monocytes 0.4 thou/uL (0.11-0.59); #Neutrophils 6.6 thou/uL (1.40-6.50); %Basophils 0.4 % (0.0-1.0); %Eosinophils 3.8 % (0.0-10.0); %Lymphocytes 18.5 % (21.0-51.0); %Monocytes 4.8 % (0.0-10.0); %Neutrophils 72.6 % (42.0-75.0); Hemoglobin 8.4 g/dL (12.0-16.0); Mean Corpuscular HGB CONC 30.3 g/dL (32.0-36.0); Mean Corpuscular Hemoglobin 28.8 pg (27.0-31.0); Mean Corpuscular Volume 94.9 fL (78.0-98.0); Mean Platelet Volume 7.4 fL (7.4-10.4); Platelet Count 263 thou/uL (130-400); RBC Distribution Width 15.7 % (11.5-14.5); Red Blood Cell (RBC) Count 2.91 mill/uL (4.20-5.40)
--- NOTE | 2020-04-27 13:26 | RAD ---
EXAM: Single view of the chest HISTORY: Shortness of breath for 3 days COMPARISON: 06/08/2018 FINDINGS: Single view of the chest shows a normal sized cardiomediastinal silhouette. There are bilat eral perihilar opacities which extend into both lower lobes. Small bilateral pleural effusions may be present. No acute osseous abnormality. IMPRESSION: Bilateral lower lobe infiltrates with adjacent pleural effusions.
[2020-04-27 13:47] LABS: ALT (SGPT) 13 U/L (8-55); AST (SGOT) 18 U/L (5-34); Albumin 3.5 g/dL (3.4-4.8); Alkaline Phosphatase 106 U/L (40-110); Anion Gap 15 mmol/L (10-20); BUN (Urea Nitrogen) 40 mg/dL (9.8-20.1); Bilirubin, Total 0.2 mg/dL (0.2-1.2); CK (CPK) 120 U/L (29-168); Calc. Creatinine Clearance 0 mL/min (70-130); Calcium 8.4 mg/dL (7.8-10.44); Carbon Dioxide 23 mmol/L (23-31); Chloride 110 mmol/L (98-107); Estimated GFR-MDRD 28; Globulin 2.6 g/dL (2.4-3.5); Glucose 138 mg/dL (80-115); Potassium 6.1 mmol/L (3.5-5.1); Protein, Total 6.1 g/dL (6.0-8.3); Sodium 142 mmol/L (136-145)
--- NOTE | 2020-04-27 14:56 | ULT ---
VENOUS DOPPLER ULTRASOUND OF THE LEFT LOWER EXTREMITY: 04/27/30 HISTORY: Shortness of breath, dyspnea. Patient is post left below knee amputation. There is edema in the left lower extremity. TECHNIQUE: Damico scale, color flow and spectral Doppler imaging of the deep venous system of the left lower extre mity was performed. FINDINGS: There is good flow, compression and augmentation in the left common femoral, femoral, popliteal veins and the saphenofemoral junction. A 1.9 x 2.7 x 0.8 cm lymph node is seen left inguinal region. IMPRESSION: No evidence of DVT in the left lower extremity. POS: AH
[2020-04-27] MEDS ORDERED: Aspirin Chewable 81 MG TAB ONE (16:17)
[2020-04-27] MEDS ORDERED: Magnesium 2 GM/50 ML BAG (IN WATER) ONE (16:31)
[2020-04-27] MEDS ORDERED: methylPREDNISolone Sod Succ/PF 125 MG/2 ML VIAL ONE (16:31)
[2020-04-27] MEDS ORDERED: Enoxaparin Sodium 100 MG/ML SYRINGE ONE (16:37)
[2020-04-27 16:53] LABS: Actual Bicarbonate (HCO3a) 23.2 mEq/L (22-28); Analyzer IN Cardio ER; Base Excess (BEa) -2.8 mEq/L (-2.0 to +3.0); Calcium, Ionized (arterial) 1.19 mmol/L (1.12-1.30); Carboxyhemoglobin (COHb) 0.2 gm% (0.0-3.0); Hemoglobin (Hb) 8.4 g/dL (12.0-16.0); Potassium - ABG Lab 5.46 mmol/L (3.70-5.30); pH, Arterial 7.32 (7.35-7.45)
[2020-04-27 16:55] LABS: Puncture Site RRA
[2020-04-27] MEDS ORDERED: Furosemide 40 MG/4 ML VIAL ONE (17:01)
[2020-04-27 17:59] LABS: Critical Call Chem Troponin I RESULT DECREASING; Troponin I 0.459 ng/mL (< 0.028)
--- NOTE | 2020-04-27 20:38 | HP ---
PRIMARY CARE PROVIDER: Tacho Sutherland MD CHIEF COMPLAINT: Shortness of breath. HISTORY OF PRESENT ILLNESS: This is a 65-year-old female, who presents to [facility] Emergency Department complaining of persistent shortness of breath over the last 4 to 5 days despite the increased use of bronchodilator therapy, DuoNeb, and metered-dose inhalers. The patient states she has been on oxygen at home up to 2 L/minute intermittently, now using it continuously without relief. The patient admits to swelling of the lower extremities and also states she underwent a left iuznm-lxk-yedh amputation on 03/08/2020. The patient states she has been evaluated by Dr. Hairston as recently as approximately 1 week prior to this evaluation, undergoing local debridement of the left lower extremity stump in his office. The patient was placed on Bactrim and Keflex and told to take the medication for approximately 10 days. The patient has been minimally ambulatory at home after an approximate 2-to 3-week stay at inpatient rehabilitation after the amputation of her left lower extremity. The patient states she has been compliant with her chronic medication regimen and denies any documented fever or chills. The patient states she is unable to lay flat due to the shortness of breath and sits up in a chair mainly. The patient denies any hemoptysis, nausea, vomiting, or diarrhea. The patient's brother reports she is supposed to undergo evaluation for a wound vacuum application to the left lower extremity due to open wound after the debridement approximately 1 week prior to this evaluation. In the emergency room, the patient underwent general evaluation including chest imaging showing bilateral infiltrates concerning for congestive heart failure exacerbation. The patient was placed on oxygen supplementation up to 4 to 5 L/minute by nasal cannula and received Lasix 80 mg IV push x1 dose in addition to magnesium sulfate 2 g IV push and Solu-Medrol 125 mg. The patient also received Lovenox 1 mg/kg, aspirin 324 mg, and 1 L of normal saline. Vascular ultrasound of the left lower extremity revealed no evidence for DVT. The patient was referred to the Hospitalist Service for further evaluation. PAST MEDICAL HISTORY: 1. Peripheral vascular disease, status post left lower extremity ypcmv-gvs-lquz amputation on 03/08/2020. 2. Gangrene of the left foot necessitating amputation. 3. Diabetic peripheral neuropathy with peripheral vascular disease. 4. Hypertension. 5. Former tobacco use. 6. Peripheral neuropathy. 7. Coronary artery disease. 8. Chronic kidney disease. 9. Chronic obstructive pulmonary disease, on chronic oxygen supplementation at 2 L/minute by nasal cannula. PAST SURGICAL HISTORY: 1. Status post left lower extremity stent placement due to peripheral vascular disease with angioplasty. 2. Status post hysterectomy. 3. Status post left shkob-gjb-vmfj amputation with local debridement of the left lower extremity stump. CURRENT MEDICATIONS: 1. Celexa 20 mg p.o. daily. 2. Divalproex 500 mg p.o. at bedtime. 3. Metformin 500 mg p.o. b.i.d. 4. Glargine insulin 25 units subcutaneously b.i.d. 5. Gabapentin 300 mg p.o. t.i.d. 6. Albuterol HFA two puffs inhaled q.4 hours p.r.n. 7. [place] 10/325 mg 1 to 2 tablets p.o. q.4 hours p.r.n. pain. 8. Bactrim DS. ALLERGIES: TO TRAMADOL. FAMILY HISTORY: Positive for hypertension and diabetes mellitus. SOCIAL HISTORY: Resides in the [facility]. Quit cigarette use in 2017, but continues to use vapes. No alcohol or illicit drug use. Accompanied in the emergency room by her brother. REVIEW OF SYSTEMS: CONSTITUTIONAL: Negative for weight loss or gain, ability to conduct usual activities. SKIN: Negative for rash, itching. EYES: Negative for double vision, pain. ENT/MOUTH: Negative for nose bleeding, neck stiffness, pain, tenderness. CARDIOVASCULAR: Negative for palpitations, dyspnea on exertion, orthopnea. RESPIRATORY: Negative for shortness of breath, wheezing, cough, hemoptysis, fever or night sweats. GASTROINTESTINAL: Negative for poor appetite, abdominal pain, heartburn, nausea, vomiting, constipation, or diarrhea. GENITOURINARY: Negative for urgency, frequency, dysuria, nocturia. MUSCULOSKELETAL: Negative for pain, swelling. NEUROLOGIC/PSYCHIATRIC: Negative for anxiety, depression. ALLERGY/IMMUNOLOGIC: Negative for skin rash, bleeding tendency. Otherwise negative except as stated per HPI. PHYSICAL EXAMINATION: VITAL SIGNS: On admission, blood pressure 147/94, pulse 84, respiratory rate 19, temperature 98.3 degrees Fahrenheit, and O2 saturation 98% on 4 L/minute by nasal cannula. GENERAL APPEARANCE: This is a 65-year-old female, ill appearing, in tnsn-yt-mswfhnoj respiratory distress. HEENT: Pupils are equal, round, and reactive to light and accommodation. Extraocular muscles are intact. No scleral icterus. No conjunctival injection. Nares patent. OP is clear. Teeth in fair repair. NECK: Supple. No cervical adenopathy. No thyromegaly. No carotid bruits. No JVD appreciated. Cervical spine with full active and passive range of motion. No meningeal signs noted. CHEST: Diminished breath sounds bilaterally with expiratory wheezes and basilar crackles. CARDIOVASCULAR: S1 and S2 with distant heart sounds. No murmur, rub, or gallop appreciated. ABDOMEN: Obese, soft, nontender, and nondistended. Bowel sounds are positive in all 4 quadrants. No palpable mass. No rebound or guarding appreciated. EXTREMITIES: Left lower extremity with a fwtlc-tlg-katz amputation with compression dressing in place. Open wound to the left lower extremity noted. Right lower extremity with pitting edema to the mid sharma. Diminished pulses at the dorsalis pedis and posterior tibial arteries. Open eschar to the 4th toe on the right foot on the dorsum of the proximal phalanx. Approximately 1.5 cm in diameter. Peripheral erythema noted of the 4th toe and distal aspect of the forefoot. NEUROLOGIC: Cranial nerves II through XII are grossly intact. Loss of sensation from the mid thighs to the distal lower extremities bilaterally. Not observed ambulatory during this exam. PERTINENT LABORATORY AND X-RAY FINDINGS: Sodium 142, potassium 6.1, chloride 110, CO2 of 23, BUN 40, creatinine 1.84, estimated GFR 28, glucose 138, and calcium 8.4. Troponin I 0.462. BNP 396. CBC showed a white blood cell count of 9.0, hemoglobin 8.4, hematocrit 28, and platelet count 263 with normal differential. ABG dated 04/27/2020 at 1650 hours showed pH of 7.32, pCO2 of 46, pO2 of 93, bicarb 23 with O2 saturation 93% on 28% FiO2. Portable chest x-ray dated 04/27/2020, showed bilateral infiltrates in the basilar segments with associated pleural effusions. Left lower extremity vascular ultrasound showed no evidence for DVT of the left lower extremity. EKG dated 04/27/2020, by my interpretation shows sinus mechanism with heart rates in the 80s. Normal R-wave progression noted in the precordial leads. Normal axis. No acute ST-T wave changes appreciated. ASSESSMENT AND PLAN: 1. Acute congestive heart failure exacerbation. The patient will be admitted to the telemetry unit. We will continue Lasix 40 mg IV b.i.d. with daily weights and monitoring input and output. Check 2D transthoracic echocardiogram for accurate ejection fraction and valvular function. Check magnesium level and TSH in the a.m. Consider Cardiology consultation. 2. Non-ST elevation myocardial infarction, type 2. Continue aspirin 81 mg daily. Status post Lovenox 1 mg/kg subcutaneously in the emergency room. Continue troponin I trending. 3. Acute on chronic hypoxic respiratory failure. We will continue oxygen supplementation to maintain O2 saturation greater than or equal to 90%. DuoNeb q.4 hours. Solu-Medrol 40 mg IV q.6 hours. General Pulmonary supportive management. Rocephin 2 g IV daily. 4. Acute on chronic kidney disease. Avoid nephrotoxic agents and limit contrast exposure. Serial creatinine monitoring. 5. Hyperkalemia. Suspect multifactorial including acute kidney injury. Continue Lasix as outlined previously. Serial potassium monitoring. Continue telemetry monitoring. 6. Peripheral vascular disease, status post left xoyxf-kjv-riga amputation. Consult General Surgery Service for any further recommendations and evaluation. Wound care consult due to open wound to the left lower extremity stump. 7. Diabetes mellitus, type 2 with peripheral neuropathy. Confirm home insulin regimen. Insulin sliding scale with reflexive coverage. ADA diet. Serial Accu-Cheks. 8. Prophylaxis. SCDs held due to peripheral vascular disease. Heparin 5000 units subcutaneously t.i.d. Pepcid 20 mg p.o. b.i.d. Wound care consult in the a.m. 9. Code status is full. Surrogate medical decision maker is the patient's brother. Job ID: [id number]
[2020-04-27 21:12] LABS: Critical Call Chem Troponin I RESULT DECREASING; Troponin I 0.404 ng/mL (< 0.028)
[2020-04-27] MEDS ORDERED: Dextrose 50% Abboject 50 ML SYRINGE SLOW IVP PRN (21:39)
[2020-04-27] MEDS ORDERED: Vancomycin HCl 1 GM in Sodium Chloride 0.9% 250 ML 250 ML IVPB SCH (21:39)
[2020-04-27] MEDS ORDERED: Ondansetron PF 4 MG/2 ML Vial IVP PRN (21:39)
[2020-04-27] MEDS ORDERED: Labetalol HCl 100 MG/20 ML VIAL SLOW IVP PRN (21:39)
[2020-04-27] MEDS ORDERED: Ondansetron ODT 4 MG TAB PO PRN (21:39)
[2020-04-27] MEDS ORDERED: Dextrose 5% in Water 1,000 ML IV PRN (21:39)
[2020-04-27] MEDS ORDERED: Calcium Gluconate 4.6 MEQ in Sodium Chloride 0.9% 100 ML IVPB SCH (21:41)
[2020-04-27] MEDS ORDERED: Vancomycin 1 GM in Premix Bag 1 BAG IVPB SCH (22:00)
[2020-04-27] MEDS ORDERED: Heparin 5,000 UNITS/ML VIAL SC SCH (22:00)
[2020-04-27] MEDS ORDERED: Insulin Glargine 25 UNITS in Pre-Filled Syringe 1 EACH SC SCH (22:00)
--- NOTE | 2020-04-27 22:08 | RAD ---
PORTABLE CHEST: 04/27/20 PROVIDED CLINICAL HISTORY: Shortness of breath. FINDINGS: Comparison examination earlier same date. Interval increase in prominence or the pulmonary vasculature and pulmonary interstitium with developm ent of bilateral, right greater than left air space disease. There is no definite pleural fluid or pn eumothorax apparent. IMPRESSION: Worsening bilateral air space disease. POS: [place]
[2020-04-27 22:16] LABS: Actual Bicarbonate (HCO3a) 22.3 mEq/L (22-28); Base Excess (BEa) -4.5 mEq/L (-2.0 to +3.0); CO2 Tension 49.4 mmHg (35.0-45.0); Calcium, Ionized (arterial) 1.19 mmol/L (1.12-1.30); Carboxyhemoglobin (COHb) 0.3 gm% (0.0-3.0); Hemoglobin (Hb) 9.1 g/dL (12.0-16.0); O2 Tension (PaO2), arterial 76.5 mmHg (> 80.0); Potassium - ABG Lab 5.52 mmol/L (3.70-5.30); pH, Arterial 7.27 (7.35-7.45)
[2020-04-27 22:18] LABS: Puncture Site LR
[2020-04-27] MEDS: Gabapentin 300 MG CAP PO SCH ×2 (22:38→22:56)
[2020-04-27] MEDS: methylPREDNISolone Sod Succ 40 MG VIAL IVP SCH (23:01)
[2020-04-27] MEDS ORDERED: Furosemide 100 MG/10 ML VIAL SLOW IVP SCH ×2 (23:15→23:30)
[2020-04-27] MEDS ORDERED: methylPREDNISolone Sod Succ/PF 125 MG/2 ML VIAL IVP SCH (23:59)
[2020-04-28 00:08] LABS: #Basophils 0.1 thou/uL (0.0-0.2); #Eosinphils 0.1 thou/uL (0.0-0.7); #Lymphocytes 1.1 thou/uL (1.20-3.40); #Monocytes 0.1 thou/uL (0.11-0.59); #Neutrophils 10.3 thou/uL (1.40-6.50); %Basophils 0.5 % (0.0-1.0); %Eosinophils 0.5 % (0.0-10.0); %Lymphocytes 9.4 % (21.0-51.0); %Monocytes 0.6 % (0.0-10.0); %Neutrophils 89.1 % (42.0-75.0); Hemoglobin 8.9 g/dL (12.0-16.0); Mean Corpuscular HGB CONC 29.6 g/dL (32.0-36.0); Mean Corpuscular Hemoglobin 28.7 pg (27.0-31.0); Mean Platelet Volume 7.8 fL (7.4-10.4); Platelet Count 292 thou/uL (130-400); RBC Distribution Width 15.9 % (11.5-14.5); White Blood Cell (WBC) Count 11.6 thou/uL (4.8-10.8)
[2020-04-28 00:18] LABS: INR-International Normal Ratio 1.1; PTT 24.9 sec (22.9-36.1); Prothrombin Time 14.6 sec (12.0-14.7)
[2020-04-28] MEDS: cefTRIAXone\\ROCEPHIN 2 GM in Sodium Chloride 0.9% 100 ML IVPB SCH ×2 (00:21→21:29)
[2020-04-28 00:25] LABS: Anion Gap 20 mmol/L (10-20); BUN (Urea Nitrogen) 43 mg/dL (9.8-20.1); Calc. Creatinine Clearance 54 mL/min (70-130); Calcium 8.9 mg/dL (7.8-10.44); Carbon Dioxide 19 mmol/L (23-31); Chloride 110 mmol/L (98-107); Estimated GFR-MDRD 31; Glucose 248 mg/dL (80-115); Potassium 5.6 mmol/L (3.5-5.1); Sodium 143 mmol/L (136-145)
[2020-04-28 00:30] LABS: Lactic Acid 1.6 mmol/L (0.5-2.2)
[2020-04-28 00:42] LABS: Bacteria/HPF None Seen HPF (None Seen); Bilirubin Negative (Negative); Blood, Urine Negative (Negative); Clarity Clear (Clear); Glucose, Urine (Dipstick) Normal (Negative); Ketone, Urine Negative (Negative); Leukocyte Negative Leu/uL (Negative); Nitrite Negative (Negative); Protein, Urine (Dipstick) Negative (Neg-Trace); RBC/HPF 0-3 HPF (0-3); Squamous Epithelial 0-3 HPF (0-3); Urobilinogen Normal mg/dL (Less than 2); WBC/HPF 0-3 HPF (0-3)
[2020-04-28 00:44] LABS: Urine Culture Reflex No No
--- NOTE | 2020-04-28 00:59 | PDOC.EVN ---
Event Note - Event Note Event Note: Ms. Menendez is a 65-year-old female with a past medical history of CHF, COPD on 2 L home O2, PVD, diabetes, hypertension, CAD who originally presented to the ED with acute COPD versus CHF exacerbation. At approximately 2300 were called to the bedside for respiratory distress and increased work of breathing. ABG and chest x-ray showed interval worsening of CHF exacerbation. Pt given 2 duonebs, solumedrol, and 80 mg IV lasix. Patient transferred to CCU and initiated on BiPAP. Dr. Marroquin in CCU to take over care.
[2020-04-28 01:05] LABS: Actual Bicarbonate (HCO3a) 20.6 mEq/L (22-28); Base Excess (BEa) -6.7 mEq/L (-2.0 to +3.0); CO2 Tension 50.4 mmHg (35.0-45.0); Calcium, Ionized (arterial) 1.22 mmol/L (1.12-1.30); Carboxyhemoglobin (COHb) 0.3 gm% (0.0-3.0); Hemoglobin (Hb) 8.7 g/dL (12.0-16.0); O2 Tension (PaO2), arterial 96.9 mmHg (> 80.0); Potassium - ABG Lab 5.36 mmol/L (3.70-5.30)
[2020-04-28 01:12] LABS: Puncture Site RRA; pH, Arterial 7.23 (7.35-7.45)
[2020-04-28] MEDS: HumaLOG 300 UNITS/3 ML VIAL SC PRN ×5 (01:54→21:47)
[2020-04-28 03:37] LABS: #Eosinphils 0.1 thou/uL (0.0-0.7); #Lymphocytes 0.5 thou/uL (1.20-3.40); #Monocytes 0.1 thou/uL (0.11-0.59); #Neutrophils 8.5 thou/uL (1.40-6.50); %Basophils 0.1 % (0.0-1.0); %Eosinophils 0.7 % (0.0-10.0); %Lymphocytes 5.4 % (21.0-51.0); %Monocytes 0.6 % (0.0-10.0); %Neutrophils 93.2 % (42.0-75.0); Hemoglobin 7.9 g/dL (12.0-16.0); Mean Corpuscular HGB CONC 29.4 g/dL (32.0-36.0); Mean Corpuscular Hemoglobin 28.1 pg (27.0-31.0); Mean Corpuscular Volume 95.5 fL (78.0-98.0); Platelet Count 236 thou/uL (130-400); RBC Distribution Width 15.7 % (11.5-14.5); Red Blood Cell (RBC) Count 2.82 mill/uL (4.20-5.40); White Blood Cell (WBC) Count 9.1 thou/uL (4.8-10.8)
[2020-04-28 03:53] LABS: ALT (SGPT) 12 U/L (8-55); AST (SGOT) 12 U/L (5-34); Albumin 3.1 g/dL (3.4-4.8); Alkaline Phosphatase 91 U/L (40-110); Anion Gap 18 mmol/L (10-20); BUN (Urea Nitrogen) 43 mg/dL (9.8-20.1); Bilirubin, Total Less than 0.2 mg/dL (0.2-1.2); Calc. Creatinine Clearance 54 mL/min (70-130); Calcium 8.3 mg/dL (7.8-10.44); Carbon Dioxide 17 mmol/L (23-31); Chloride 108 mmol/L (98-107); Estimated GFR-MDRD 30; Glucose 302 mg/dL (80-115); Potassium 5.2 mmol/L (3.5-5.1); Protein, Total 6.1 g/dL (6.0-8.3); Sodium 138 mmol/L (136-145)
[2020-04-28] MEDS: methylPREDNISolone Sod Succ 40 MG VIAL IVP SCH ×4 (04:20→21:25)
[2020-04-28] MEDS ORDERED: Furosemide 40 MG/4 ML VIAL SLOW IVP SCH (06:00)
[2020-04-28] MEDS: Furosemide 40 MG/4 ML VIAL SLOW IVP SCH ×2 (06:19→14:59)
[2020-04-28] MEDS: Aspirin 81 mg Enteric Coated Tablet PO SCH (09:41)
[2020-04-28] MEDS: Heparin 5,000 UNITS/ML VIAL SC SCH ×3 (09:41→21:26)
[2020-04-28] MEDS: Famotidine 20 MG TAB PO SCH (09:41)
[2020-04-28] MEDS: Insulin Glargine 25 UNITS in Pre-Filled Syringe 1 EACH SC SCH ×2 (09:42→21:29)
[2020-04-28] MEDS: Citalopram 20 MG TAB PO SCH (09:42)
[2020-04-28] MEDS: Gabapentin 300 MG CAP PO SCH ×3 (09:42→21:26)
--- NOTE | 2020-04-28 11:37 | PDOC.HOSPP ---
- Subjective Encounter Date: 04/28/20 Encounter Time: 11:00 Subjective: f/u for CHF/PNA/CHF requiring BiPAP NIMV overnight. Apparently became increasingly dyspneic and moved to CCU for BiPAP administration. Pt states she is feeling better and comfortable on BiPAP. - Objective Vital Signs & Weight: Vital Signs (12 hours) Temp Pulse Pulse Pulse Resp BP BP 04/28/20 10:01 94 2 L 04/28/20 09:40 91 96 108/66 128/66 04/28/20 08:00 97.6 F 04/28/20 07:12 92 4 L 04/28/20 03:05 18 04/28/20 03:00 98.4 F 04/28/20 02:09 81 17 04/28/20 00:40 15 Pulse Ox Pulse Ox Pulse Ox 04/28/20 10:01 100 04/28/20 09:40 100 96 04/28/20 08:00 99 04/28/20 07:12 100 04/28/20 03:05 100 04/28/20 03:00 04/28/20 02:09 97 04/28/20 00:40 100 Weight Weight 221 lb 12.56 oz Most Recent Monitor Data Heart Rate from ECG 88 NIBP 127/70 NIBP BP-Mean 89 Respiration from ECG 17 SpO2 100 I&O: 04/27/20 04/28/20 04/29/20 06:59 06:59 06:59 Intake Total 400 Output Total 1121 683 Balance -981 -383 Result Diagrams: 04/28/20 03:18 04/28/20 03:18 Additional Labs: Laboratory Tests 04/27/20 04/27/20 04/27/20 13:04 13:05 13:05 WBC 9.0 Hgb 8.4 L ABG pH Potassium Creatinine 1.84 H B-Natriuretic Peptide 395.6 H TSH 3rd Generation 04/27/20 04/27/20 04/27/20 16:50 21:29 23:43 WBC Hgb ABG pH 7.32 L 7.27 L Potassium 5.6 H Creatinine 1.69 H B-Natriuretic Peptide TSH 3rd Generation 04/27/20 04/28/20 04/28/20 23:43 00:45 03:18 WBC 11.6 H Hgb 8.9 L ABG pH 7.23 L* Potassium Creatinine B-Natriuretic Peptide TSH 3rd Generation 2.1870 04/28/20 04/28/20 03:18 08:49 WBC Hgb ABG pH Potassium Creatinine B-Natriuretic Peptide 430.8 H TSH 3rd Generation 1.9234 Radiology Reviewed by me: Yes (PCXR - bilat infiltrates) EKG Reviewed by me: Yes (Tele - SR) Hospitalist ROS - Medication Medications: Active Medications Generic Name Dose Route Start Last Admin Trade Name Freq PRN Reason Stop Dose Admin Albuterol/Ipratropium 3 ml 04/28/20 11:00 04/28/20 10:00 Ipratropium/Albuterol Sulfate 3 Ml Neb NEB 3 ml [id number] KLAUDIA Administration Aspirin 81 mg 04/28/20 09:00 04/28/20 09:41 Aspirin 81 Mg Enteric Coated Tablet PO 81 mg DAILY KLAUDIA Administration Citalopram Hydrobromide 20 mg 04/28/20 09:00 04/28/20 09:42 Citalopram 20 Mg Tab PO 20 mg DAILY KLAUDIA Administration Famotidine 20 mg 04/28/20 09:00 04/28/20 09:41 Famotidine 20 Mg Tab PO 20 mg DAILY KLAUDIA Administration Furosemide 40 mg 04/28/20 06:00 04/28/20 06:19 Furosemide 40 Mg/4 Ml Vial SLOW IVP 40 mg 0600,1400 KLAUDIA Administration Gabapentin 300 mg 04/28/20 09:00 04/28/20 09:42 Gabapentin 300 Mg Cap PO 300 mg TID KLAUDIA Administration Heparin Sodium (Porcine) 5,000 units 04/28/20 09:00 04/28/20 09:41 Heparin 5,000 Units/Ml Vial SC 5,000 units TID KLAUDIA Administration Ceftriaxone Sodium 2 gm/ 100 mls @ 200 mls/hr 04/27/20 22:00 04/28/20 00:21 Sodium Chloride IVPB 100 mls Q24HR KLAUDIA Administration Insulin Glargine 25 units/ 0.25 mls @ 0 mls/hr 04/28/20 09:00 04/28/20 09:42 Miscellaneous Medication SC 0.25 mls BID KLAUDIA Administration Insulin Human Lispro 0 units 04/27/20 21:39 04/28/20 04:40 Humalog 300 Units/3 Ml Vial SC 4 unit .BEDTIME SLIDING SC PRN Administration Bedtime Correctional Scale Methylprednisolone Sodium Succinate 40 mg 04/27/20 22:00 04/28/20 09:41 Methylprednisolone Sod Succ 40 Mg Vial IVP 40 mg 0400,1000,1600,2200 KLAUDIA Administration - Exam General Appearance: ill appearing General - other findings: opens eyes and responds to questions Eye: PERRL, anicteric sclera ENT: normocephalic atraumatic, no oropharyngeal lesions Neck: supple, symmetric, no JVD, no thyromegaly, no lymphadenopathy Heart: RRR, no gallops, no rubs, normal peripheral pulses Heart - other findings: S1, S2 Respiratory: tachypneic Respiratory - other findings: diminished bilat, occ rhonchi, few rales Gastrointestinal: soft, non-tender, non-distended, normal bowel sounds, no palpable masses Extremities: no cyanosis Extremities - other findings: L BKA with stump 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, RLE with edema, diminished pulses Skin: normal turgor Neurological: cranial nerve grossly intact, no new deficit Musculoskeletal: normal tone, generalized weakness Psychiatric: A&O x 3, flat affect Hosp A/P (1) Acute CHF (congestive heart failure) Code(s): I50.9 - HEART FAILURE, UNSPECIFIED Status: Acute Qualifiers: Heart failure type: unspecified Qualified Code(s): I50.9 - Heart failure, unspecified Plan: Continue Lasix 40mg IV BID, 2D echo pending (2) Type 2 myocardial infarction Code(s): I21.A1 - MYOCARDIAL INFARCTION TYPE 2 Status: Acute Plan: Cardiology consult pending, ASA, 2D echo pending (3) Acute and chronic respiratory failure with hypoxia Code(s): J96.21 - ACUTE AND CHRONIC RESPIRATORY FAILURE WITH HYPOXIA Status: Acute Plan: Likely multifactorial including COPD/CHF/NSTEMI, continue BiPAP NIMV, titrate O2 to clinical response (4) Acute kidney injury superimposed on CKD Code(s): N17.9 - ACUTE KIDNEY FAILURE, UNSPECIFIED; N18.9 - CHRONIC KIDNEY DISEASE, UNSPECIFIED Status: Acute Plan: Improved, continue to follow closely given diuretic therapy, low-volume NS @ 50ml/h (5) Hyperkalemia Code(s): E87.5 - HYPERKALEMIA Status: Acute Plan: Improved, start IV NS @ 50ml/h, serial K+ monitoring, continue Lasix (6) PVD (peripheral vascular disease) Code(s): I73.9 - PERIPHERAL VASCULAR DISEASE, UNSPECIFIED Status: Chronic Plan: Consult Vascular surgery service regarding RLE, ? re-vascularization, consult Gen surgery regarding recent L BKA with debridement (7) Diabetic peripheral neuropathy Code(s): E11.42 - TYPE 2 DIABETES MELLITUS WITH DIABETIC POLYNEUROPATHY Status: Chronic - Plan continue antibiotics, PT/OT, social media marketing specialist, respiratory therapy, DVT proph w/SCDs Continue pulmonary support BiPAP NIMV Continue Rocephin/Duonebs/Solumedrol Continue Lasix 40mg IV BID Start low-volume IV NS @ 50ml/h Await Gen surgery and Vasc surgery consult WCT for local care of L BKA and R 4th toe PT/OT for functional assessment AM lab: BMP, CBC, Mg++
[2020-04-28 12:09] LABS: SARS-CoV-2 MS2 Positive; SARS-CoV-2 N Gene Negative; SARS-CoV-2 S Gene Negative; SARS-CoV-2 by NAA Not Detected (NotDetected); SARS-CoV-2 orf1ab Negative
[2020-04-28] MEDS: Sodium Chloride 0.9% 1,000 ML IV SCH (12:23)
--- NOTE | 2020-04-28 13:08 | CON ---
DATE OF CONSULTATION: 04/28/2020 HISTORY OF PRESENT ILLNESS: Nilda Menendez is a 65-year-old obese female who was discharged from the hospital on 03/10 after she underwent amputation of the left lower extremity gangrene. She now presents to the ER last night with shortness of breath for several days duration, but no fever or chills. She is on BiPAP in the ICU. Not able to get much history from the patient. She is having some pain and discomfort but states . PAST MEDICAL HISTORY: Pertinent for COPD, former smoker, high cholesterol, congestive heart failure, diabetes, hyperlipidemia, and morbid obesity. PAST SURGICAL HISTORY: Previous surgeries including recent left leg amputation, previous surgery and previous cardiac stent. SOCIAL HISTORY: Smoked pack a day. HOME MEDICATIONS: Include: 1. Metformin 500 twice a day. 2. Ibuprofen 600. 3. Gabapentin 300. 4. Divalproex 500. 5. Celexa 20. 6. Insulin 25 b.i.d. 7. Hydrocodone. 8. Albuterol inhaler. ALLERGIES: TRAMADOL. REVIEW OF SYSTEMS: Otherwise, unremarkable. PHYSICAL EXAMINATION: VITAL SIGNS: Sats are 93% on the BIPAP, respiratory rate 18, and blood pressure 130/80. CHEST: Decreased breath sounds. No wheezing. CARDIAC: Normal S1, S2. No gallops. ABDOMEN: No masses. LABORATORY STUDIES: White count 9000, H and H 7 and 26, and platelet count 236. PO2 was 96, pCO2 50, pH 7.23 on BiPAP. Creatinine is 1.7, BUN is 43. Her lytes are normal. BNP is 438. ASSESSMENT: 1. Chronic obstructive pulmonary disease exacerbation, respiratory failure. 2. History of congestive heart failure. 3. Peripheral vascular disease. 4. Recent lxafn-gia-txbt amputation, left leg. PLAN: She was scheduled neb treatments, nocturnal CPAP, PT. Empiric antibiotics initiated. Pulmonary/Critical Care will follow while in the ICU. Consultation note, 70 minutes, 50% of direct patient care. Job ID: [id number]
--- NOTE | 2020-04-28 18:31 | CON ---
DATE OF CONSULTATION: 04/28/2020 PRIMARY PATIENT SUPPORT ASSISTANT: Ashu Phipps MD REASON FOR CONSULTATION: Shortness of breath. HISTORY OF PRESENT ILLNESS: Ms. Menendez is a very pleasant 65-year-old white female, who comes to the hospital for shortness of breath. She was admitted, placed on a BiPAP, thought to be a COPD exacerbation. Eventually, her short of breath got worse despite pulmonary toilet and had to be placed on a BiPAP and started to be diuresed with IV Lasix. With diuresis, she actually was able to diurese well and is now off the BiPAP feeling a little bit better. She has significant history of coronary artery disease. She had a stent placed to her right coronary artery in [address] Phipps. At that time, she also had a 60% LAD stenosis that was treated medically. She has not followed up with Dr. Phipps for some time now. Also, she has recently been in the hospital for severe peripheral vascular disease and underwent rvafb-rqd-[id number] amputation in early March, and this is not healing very well and plan is to do an julex-xho-xytg amputation in the next few days once she is more stable. Cardiology is being consulted as it seems like she is now going into heart failure and to evaluate her cardiac situation. PAST MEDICAL HISTORY: 1. Peripheral vascular disease. 2. Gangrene of the left foot necessitating amputation. 3. New lesion on one of the toes on the right. 4. Type 2 diabetes. 5. Diabetic neuropathy. 6. Hypertension. 7. Former tobacco use. 8. Peripheral neuropathy. 9. Coronary artery disease as above. 10. Chronic kidney disease. 11. COPD on chronic home O2. SURGICAL HISTORY: 1. Left lower extremity stenting. 2. Hysterectomy. 3. Left bmttv-ojq-zxeg amputation. OUTPATIENT MEDICATIONS: 1. Celexa 20 mg a day. 2. a day. 3. Metformin 500 mg b.i.d. 4. Insulin glargine 25 units b.i.d. 5. Gabapentin 300 mg t.i.d. 6. Albuterol inhaler. 7. [place] p.r.n. 8. Bactrim DS. ALLERGIES: TRAMADOL. FAMILY HISTORY: Hypertension and diabetes. SOCIAL HISTORY: Quit smoking in 2017, but has been vaping ever since. No alcohol or drug use. REVIEW OF SYSTEMS: A 12-point review of systems was done and was found to be negative other than stated in the history of present illness. PHYSICAL EXAMINATION: VITAL SIGNS: Temperature 98.5, pulse 92, respiratory rate 24, saturation 99% on 40% FiO2 on high-flow nasal cannula, blood pressure 137/84. GENERAL: Awake, alert, oriented x3, and iurx-ps-xkplinat respiratory distress. HEENT: Normocephalic and atraumatic. NECK: Supple. LUNGS: Have reduced breath sounds. CARDIOVASCULAR: S1 and S2. Grade 2/6 systolic murmur at the right upper sternal border. ABDOMEN: Soft. EXTREMITIES: Left BKA nonhealing and the right with 1+ edema and what appears to be necrosis of one of the toes. Reduced pulse as well. LABORATORY DATA: Laboratory work was reviewed. White count of 9, hemoglobin of 7.9, hematocrit 26, platelet count 236. Coags were reviewed. ABG was reviewed. Chemistries were reviewed. Potassium is 5.2, creatinine 1.71, GFR of 30, glucose 230s to 300 range. BNP was 430. TSH was normal. Albumin was 3.1. Troponin was 0.46, 0.45, 0.40, so positive. UA was unremarkable. COVID PCR was not detected. ASSESSMENT AND PLAN: 1. Acute on chronic systolic versus diastolic heart failure. 2. Coronary artery disease, known. 3. Ongoing nicotine use. 4. Severe peripheral vascular disease. 5. Noncompliance with followup. 6. Type 2 diabetes. 7. Hypertension. PLAN: 1. Continue to treat COPD as well as what appears to be some level of heart failure. Continue IV diuresis. 2. Echocardiogram is still pending at this time. 3. High suspicion for this being an ischemic cardiomyopathy with reduced EF. We will await further evaluation with echocardiogram, however, she may need a repeat heart catheterization if that is the case. 4. Dr. Phipps, her primary tilting saw operator will follow up in the morning. Job ID: [id number]
[2020-04-28] MEDS: Mometasone 200 MCG/Formoterol 5 MCG 120 PUFF INHALER INH SCH (18:35)
--- NOTE | 2020-04-28 19:08 | CON ---
DATE OF CONSULTATION: 04/28/2020 REQUESTING PHYSICIAN: Dr. Breen. CHIEF COMPLAINT: Shortness of breath. REASON FOR CONSULTATION: Peripheral vascular disease. HISTORY OF PRESENT ILLNESS: The patient is a 65-year-old diabetic woman with known coronary artery disease and peripheral vascular disease. 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 At that time, she underwent emergent femoral-popliteal bypass grafting with a synthetic graft both common femoral proximally and the popliteal artery distally required endarterectomies as she already was developing some stiffness in her ankle when I saw her in the emergency room, I also did a four-compartment fasciotomy. She was lost to follow up in October of 2017 when she returned to [place]. She has since moved back here and in early March of this year, I saw her when she presented with cellulitic changes in the left foot surrounding fairly large eschar and she also had a large eschar on her heel and a dry ulcer on the base of great toe and she had very pale skin on most of those toes that seem to be sloughing. Her foot was marginally salvageable, but it was clear that it was ischemic. Arteriography limited to the left lower extremity demonstrated occlusion of her femoral-popliteal graft. Extensive disease in the previously endarterectomized common femoral segment. She had no demonstrable named vessel crossing into the foot. She underwent a below-knee amputation at that time and has since required outpatient debridement of the stump when the skin edges and the deep closure dehisced, the tissues may enlarge; however, appeared to be viable and she is just now starting wound VAC therapy for it. At the time of that outpatient evaluation, she was noted to have some punctate lesions on her right foot, worrisome for ischemia and arrangements were being made for me to see her in office. Yesterday, she presented after a few days of progressive shortness of breath that did not adequately respond to rescue inhalers and her oxygen saturations in spite of nasal cannula oxygen were staying in the 80s. She was found to have a mildly elevated troponin and pulmonary edema. She improves somewhat with diuresis, but then became more short of breath during the night and was transferred to the intensive care unit. She has gotten some relief with additional diuresis and the use of a noninvasive positive-pressure ventilation mask. PAST MEDICAL HISTORY: Significant for her coronary artery disease, peripheral vascular disease, diabetes, hypertension, COPD that is now requiring home oxygen and rescue inhalers. She has borderline renal insufficiency, frequently has normal BUN and creatinines with estimated GFR in the low-normal range, but commonly running around 60. HOME MEDICATIONS: 1. Metformin 500 mg b.i.d. 2. Lantus insulin 25 units b.i.d. 3. Neurontin 300 mg t.i.d. 4. Divalproex 500 mg at bedtime. 5. Celexa 20 mg a day. 6. P.r.n. ProAir inhaler. 7. She has been since then started on Solu-Medrol and Rocephin. ALLERGIES: REPORTS AN ALLERGY TO TRAMADOL. FAMILY HISTORY: Significant for hypertension and diabetes. She quit smoking cigarettes in 2017, but continues to use of E-cigarettes. REVIEW OF SYSTEMS: Notable for some chest heaviness associated with her shortness of breath. PHYSICAL EXAMINATION: GENERAL: She is an obese woman, wearing a CPAP mask. She is currently lying on her left side. VITAL SIGNS: Height 5 feet 4 inches and weighs 222 pounds. Heart rate is 88, blood pressure 127/70. Her O2 saturations are in the high 90s to 100% on that mask. LUNGS: She has bilateral rales, much more prominent on the left than on the right. NECK: She has no obvious JVD. HEART: She has a regular rate and rhythm. ABDOMEN: Obese. I was not able to easily access her groins, but she very recently had a palpable right femoral pulse and nonpalpable left. She has a dressing on a left BKA stump. Pictures in the chart showed it to be completely dehisced, but the muscle bellies to be viable with a minimum amount of questionable skin. EXTREMITIES: Her right lower extremity has about a dime-sized eschar on the dorsum of the second toe where she said she ran over it with wheel on her walker, lateral aspect of the foot, there is some scattered mild discoloration, but no distinct sores. She has nonpalpable pulses in that foot as is consistent with previous exams. LABORATORY DATA: Her white count is 9.1, hemoglobin 7.9, platelet count 236,000. PT is 14.6, INR 1.1, PTT 24.9. On admission, her potassium was 6.1, BUN 40, creatinine 1.84 with an estimated GFR of 28 and glucose of 138. Her LFTs were normal. Her troponin was 0.462 and her BNP was 395.6, albumin was 3.5. Her troponin trended down with followup troponins being 0.459 and 0.404, and a followup potassium is 5.6 with a BUN of 43 and a creatinine of 1.69. Her UA was clean and COVID test is pending. Her chest x-ray shows interval worsening of her pulmonary edema between admission yesterday afternoon and transferred to the intensive care unit last night. IMPRESSION AND RECOMMENDATIONS: Her current illness takes precedence over her peripheral vascular disease. She certainly is at risk for another amputation, but dealing with her cardiopulmonary issues and potentially infectious disease issues, needs to come first. Job ID: [id number]
[2020-04-28] MEDS: Divalproex Sodium DR 500 MG TAB PO SCH (21:26)
--- NOTE | 2020-04-29 00:28 | CON ---
DATE OF CONSULTATION: HISTORY OF PRESENT ILLNESS: Nilda Menendez is a 65-year-old female who was admitted for dyspnea. She is COVID negative. She has severe PAD. The patient underwent on 03/09/2020 left afhes-hia-neyx amputation. Dr. Segundo had performed on 03/27/2020 arteriography assessing the left leg. She has undergone percutaneous revascularization procedures 2-1/2 years ago, both legs, underwent emergent left femoral-popliteal bypass with endarterectomy of both common femoral and popliteal artery. The patient was seen in my office one week ago. It was noted that she has slight opening on the medial BKA stump. The fascia was open and the deep tissue was exposed and a wet-to-dry dressing applied. She was started on oral antibiotics and her Home Health was contacted to establish a wound VAC. Apparently, the wound VAC was to be applied yesterday, 6 days . She finally had a dressing change beginning of the week. The patient reports that she has fallen several times on the stump, making it worse. She is admitted for pneumonia non-COVID related, possible cardiac event with pulmonary edema. I have been asked to see her about her stump. When I saw her in the office last week, she also had dry gangrene changes of her right second toe and Dr. Segundo was arranging evaluation of her right leg circulation. She has non-palpable pulses below her femoral artery on the right, although a strong Doppler dorsalis pedis pulse on the right, but a non-dopplerable posterior tibial and nonpalpable anterior tibial. The patient's condition, however, at this point is not suitable for arteriography intervention. the right foot has dry gangrene and can be addressed electively. When I evaluated her left BKA stump, it is widely open. Muscle is necrotic, soft tissue necrotic, and she needs an srxlv-yuz-jnjf amputation whenever her medical condition stabilizes such that she could undergo that. Until that time, she will have a normal saline wet-to-dry dressing. PHYSICAL EXAMINATION: VITAL SIGNS: Height 5 feet 4 inches, 221 pounds, BMI 38. The patient is on BiPAP. She is dyspneic. Sats are low unless she is on supplemental oxygen and BiPAP. LUNGS: Rhonchi at base. CARDIAC: Regular rate and rhythm. ABDOMEN: Soft. EXTREMITIES: Left BKA stump widely open. Fascia dehisced. Necrotic muscle debrided at the bedside. No bleeding. Necrotic skin edges, desiccated subcutaneous tissue with gangrene. ASSESSMENT/PLAN: 1. Diabetes. 2. Coronary artery disease. 3. Chronic obstructive pulmonary disease. 4. Acute respiratory illness with compromise and hypoxia with CPAP dependent at this time. 5. Severe peripheral arterial disease, status post left hnkaa-mmx-vkdl amputation. She will need a left wvbeq-dxu-riuj amputation when medically suitable. 6. Peripheral arterial disease with dry gangrene, right foot. We would recommend evaluation of right leg circulation when medically stable. 7. Diabetes mellitus. 8. Congestive heart failure. Repeat echo per Medical. 9. Acute kidney injury superimposed on chronic kidney disease. 10. Diabetic peripheral neuropathy. Job ID: [id number]
[2020-04-29 04:09] LABS: #Lymphocytes 0.8 thou/uL (1.20-3.40); #Monocytes 0.2 thou/uL (0.11-0.59); #Neutrophils 8.3 thou/uL (1.40-6.50); %Basophils 0.2 % (0.0-1.0); %Eosinophils 0.1 % (0.0-10.0); %Lymphocytes 8.7 % (21.0-51.0); %Monocytes 2.6 % (0.0-10.0); %Neutrophils 88.4 % (42.0-75.0); Hemoglobin 8.3 g/dL (12.0-16.0); Mean Corpuscular HGB CONC 31.1 g/dL (32.0-36.0); Mean Corpuscular Hemoglobin 29.7 pg (27.0-31.0); Mean Corpuscular Volume 95.8 fL (78.0-98.0); Mean Platelet Volume 7.7 fL (7.4-10.4); Platelet Count 268 thou/uL (130-400); RBC Distribution Width 15.8 % (11.5-14.5); Red Blood Cell (RBC) Count 2.78 mill/uL (4.20-5.40); White Blood Cell (WBC) Count 9.4 thou/uL (4.8-10.8)
[2020-04-29] MEDS: methylPREDNISolone Sod Succ 40 MG VIAL IVP SCH ×4 (04:28→21:10)
[2020-04-29 04:31] LABS: Anion Gap 15 mmol/L (10-20); BUN (Urea Nitrogen) 50 mg/dL (9.8-20.1); Calc. Creatinine Clearance 63 mL/min (70-130); Calcium 8.5 mg/dL (7.8-10.44); Carbon Dioxide 26 mmol/L (23-31); Chloride 106 mmol/L (98-107); Estimated GFR-MDRD 36; Glucose 272 mg/dL (80-115); Magnesium 2.6 mg/dL (1.6-2.6); Potassium 5.5 mmol/L (3.5-5.1); Sodium 141 mmol/L (136-145)
[2020-04-29] MEDS: Furosemide 40 MG/4 ML VIAL SLOW IVP SCH ×2 (05:51→13:56)
[2020-04-29] MEDS: HumaLOG 300 UNITS/3 ML VIAL SC PRN ×2 (06:25→11:56)
[2020-04-29] MEDS: Mometasone 200 MCG/Formoterol 5 MCG 120 PUFF INHALER INH SCH ×2 (07:22→19:33)
--- NOTE | 2020-04-29 08:29 | PRG ---
DATE OF SERVICE: 04/29/2020 SUBJECTIVE: Nilda Menendez is a 65-year-old female who remains in ICU, still awaiting BiPAP from time to time. OBJECTIVE: VITAL SIGNS: Pulse 85, respirations 17, sats 98% on a BiPAP 40%, and blood pressure 150/93. GENERAL: She is awake and responsive. CHEST: Decreased breath sounds. No wheezing. CARDIAC: Normal S1, S2. No gallops. ABDOMEN: Soft. LABORATORY DATA: Her white count is normal. Creatinine 1.46. ASSESSMENT: Chronic obstructive pulmonary disease; respiratory failure; cellulitis; pwyfc-xpt-ohmv amputation, requiring revision; diabetes; and renal failure. PLAN: Continue BiPAP as tolerated. Continue PT. Further input from Surgery. Job ID: [id number]
[2020-04-29] MEDS: Famotidine 20 MG TAB PO SCH (09:03)
[2020-04-29] MEDS: Aspirin 81 mg Enteric Coated Tablet PO SCH (09:03)
[2020-04-29] MEDS: Citalopram 20 MG TAB PO SCH (09:04)
[2020-04-29] MEDS: Heparin 5,000 UNITS/ML VIAL SC SCH ×3 (09:04→19:59)
[2020-04-29] MEDS: Gabapentin 300 MG CAP PO SCH ×3 (09:04→19:59)
[2020-04-29] MEDS: Insulin Glargine 25 UNITS in Pre-Filled Syringe 1 EACH SC SCH (09:05)
--- NOTE | 2020-04-29 12:47 | PRG ---
DATE OF SERVICE: 04/29/2020 SUBJECTIVE: Ms. Menendez is awake and doing much better. She is on nasal cannula without significant complaints. Wound care was re-dressing her wound. There is significant necrotic tissue noted at the wound site. OBJECTIVE: VITAL SIGNS: Blood pressure 162/95, pulse 92, temperature afebrile. LUNGS: Minimal crackles bilaterally. HEART: Regular rate and rhythm. ABDOMEN: Soft, nontender, nondistended. EXTREMITIES: As above. PERTINENT LABORATORY DATA: Hemoglobin 8.3, up from 7.9. Creatinine 1.46 with a GFR of 36, potassium 5.5. BNP yesterday 430. IMPRESSION: 1. Recent respiratory distress. 2. Congestive heart failure likely systolic versus diastolic. 3. CAD, status post stent placed. 4. Severe PVD. RECOMMENDATIONS: We will continue current support with aspirin and Lasix. Add low-dose Coreg and consider Entresto. We will review echo, still not performed at the time of dictation. Job ID: [id number]
[2020-04-29] MEDS: Sodium Chloride 0.9% 1,000 ML IV SCH (14:02)
--- NOTE | 2020-04-29 14:30 | PDOC.HOSPP ---
- Subjective Encounter Date: 04/29/20 Encounter Time: 14:28 Subjective: Patient was seen and examined in bed. She was off BiPAP briefly overnight however had to be placed back on BiPAP. She notes no significant improvement however no deterioration. She denies any chest pain - Objective Vital Signs & Weight: Vital Signs (12 hours) Temp Pulse Pulse Pulse Resp BP BP 04/29/20 12:00 97.7 F 04/29/20 11:03 90 21 H 04/29/20 11:01 86 91 153/92 H 147/96 H 04/29/20 08:00 97.8 F 04/29/20 07:24 85 17 04/29/20 07:23 90 24 H 04/29/20 04:00 98.3 F 04/29/20 02:29 83 Pulse Ox Pulse Ox Pulse Ox 04/29/20 12:00 04/29/20 11:03 97 04/29/20 11:01 100 99 04/29/20 08:00 97 04/29/20 07:24 99 04/29/20 07:23 97 04/29/20 04:00 04/29/20 02:29 100 Weight Admit Weight 221 lb Weight 218 lb 3.2 oz Most Recent Monitor Data Heart Rate from ECG 87 NIBP 161/88 NIBP BP-Mean 112 Respiration from ECG 18 SpO2 100 I&O: 04/28/20 04/29/20 04/30/20 06:59 06:59 06:59 Intake Total 400 975 480 Output Total 1121 [id number] [id number] [facility] [phone] Result Diagrams: 04/29/20 03:29 04/29/20 15:26 Additional Labs: Accuchecks 04/29/20 04/28/20 04/28/20 11:53 21:47 16:39 POC Glucose 197 H 247 H 237 H Hospitalist ROS - Medication Medications: Active Medications Generic Name Dose Route Start Last Admin Trade Name Freq PRN Reason Stop Dose Admin Albuterol/Ipratropium 3 ml 04/28/20 11:00 04/29/20 11:03 Ipratropium/Albuterol Sulfate 3 Ml Neb NEB 3 ml [id number] KLAUDIA Administration Aspirin 81 mg 04/28/20 09:00 04/29/20 09:03 Aspirin 81 Mg Enteric Coated Tablet PO 81 mg DAILY KLAUDIA Administration Citalopram Hydrobromide 20 mg 04/28/20 09:00 04/29/20 09:04 Citalopram 20 Mg Tab PO 20 mg DAILY KLAUDIA Administration Divalproex Sodium 500 mg 04/28/20 21:00 04/28/20 21:[address] 500 Mg Tab PO 500 mg HS KLAUDIA Administration Famotidine 20 mg 04/28/20 09:00 04/29/20 09:03 Famotidine 20 Mg Tab PO 20 mg DAILY KLAUDIA Administration Furosemide 40 mg 04/28/20 06:00 04/29/20 13:56 Furosemide 40 Mg/4 Ml Vial SLOW IVP 40 mg 0600,1400 KLAUDIA Administration Gabapentin 300 mg 04/28/20 09:00 04/29/20 09:04 Gabapentin 300 Mg Cap PO 300 mg TID KLAUDIA Administration Heparin Sodium (Porcine) 5,000 units 04/28/20 09:00 04/29/20 09:04 Heparin 5,000 Units/Ml Vial SC 5,000 units TID KLAUDIA Administration Ceftriaxone Sodium 2 gm/ 100 mls @ 200 mls/hr 04/27/20 22:00 04/28/20 21:29 Sodium Chloride IVPB 100 mls Q24HR KLAUDIA Administration Sodium Chloride 1,000 mls @ 50 mls/hr 04/28/20 12:00 04/29/20 14:02 Normal Saline 0.9% IV 1,000 mls .Q20H KLAUDIA Administration Insulin Human Lispro 0 units 04/27/20 21:39 04/29/20 11:56 Humalog 300 Units/3 Ml Vial SC 2 unit .MILD SLIDING SCALE PRN Administration Mild Correctional Scale Insulin Human Lispro 0 units 04/27/20 21:39 04/28/20 21:47 Humalog 300 Units/3 Ml Vial SC 2 unit .BEDTIME SLIDING SC PRN Administration Bedtime Correctional Scale Methylprednisolone Sodium Succinate 40 mg 04/27/20 22:00 04/29/20 09:03 Methylprednisolone Sod Succ 40 Mg Vial IVP 40 mg 0400,1000,1600,2200 KLAUDIA Administration Mometasone Furoate/Formoterol Fumar 2 puff 04/28/20 18:30 04/29/20 07:22 Mometasone 200 Mcg/Formoterol 5 Mcg 120 Puff Inhaler INH 2 puff BID-RT KLAUDIA Administration - Exam General - other findings: Patient examined in bed, on BiPAP, mild respiratory distress. Heart - other findings: S1-S2 present. No murmurs gallops or rubs. Respiratory - other findings: Decreased breath sounds bilaterally. No rhonchi rales. Gastrointestinal - other findings: Soft, bowel sounds present. Extremities - other findings: BKA left leg. Wound dressed. 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 Acute hypoxic respiratory failure Likely secondary to CHF exacerbation Continue diuresis on Lasix Continue on BiPAP Pulmonology on board. CHF exacerbation BNP 430 Echocardiogram shows EF of 50 to 55% with diastolic dysfunction. We will continue on Lasix 40 mg twice daily Daily weights Monitor BMP Carvedilol/Entresto Continue on DuoNeb Cardiology following. Peripheral arterial disease with dry gangrene of right foot Evaluation by vascular surgery Further input once medically stable Wound on left BKA stump Surgery evaluated Recommend above-knee amputation once medically stable. Appreciate surgery input Carotid artery disease Status post stenting Continue on aspirin Cardiology following. Severe peripheral vascular disease Vascular surgery consulted Surgical assessment after acute events Hyperkalemia potassium 6.1 at presentation currently 5.5 Likely secondary to BOBBY Presenting creatinine 1.84 currently 1.46 Continue monitoring Nephrology if starts trending up. BOBBY Possibly cardiorenal BUN/creatinine ratio greater than 20 Creatinine improved from 1.84 to 1.46 today Continue heart failure treatment Nephrology consulted worsens. Diabetes mellitus type II with peripheral neuropathy No recent A1c on file We will check Currently continue on glargine 25 twice daily however blood sugar still remains high We will increase to 30 twice daily with correctional VT prophylaxisHeparin
[2020-04-29 15:09] LABS: Hemoglobin A1c 6.5 % (4.0-6.0)
[2020-04-29 15:56] LABS: Anion Gap 12 mmol/L (10-20); BUN (Urea Nitrogen) 44 mg/dL (9.8-20.1); Calc. Creatinine Clearance 72 mL/min (70-130); Calcium 8.7 mg/dL (7.8-10.44); Carbon Dioxide 30 mmol/L (23-31); Chloride 103 mmol/L (98-107); Estimated GFR-MDRD 43; Glucose 194 mg/dL (80-115); Potassium 5.2 mmol/L (3.5-5.1); Sodium 140 mmol/L (136-145)
[2020-04-29] MEDS: Divalproex Sodium DR 500 MG TAB PO SCH (19:59)
[2020-04-29] MEDS: Insulin Glargine 30 UNITS in Pre-Filled Syringe 1 EACH SC SCH (19:59)
[2020-04-29] MEDS: Carvedilol 3.125 MG TAB PO SCH (20:00)
[2020-04-29] MEDS: cefTRIAXone\\ROCEPHIN 2 GM in Sodium Chloride 0.9% 100 ML IVPB SCH (21:11)
[2020-04-30] MEDS: methylPREDNISolone Sod Succ 40 MG VIAL IVP SCH ×2 (04:56→09:38)
[2020-04-30] MEDS: Sodium Chloride 0.9% 1,000 ML IV SCH (04:56)
[2020-04-30] MEDS: Furosemide 40 MG/4 ML VIAL SLOW IVP SCH ×2 (04:59→14:30)
[2020-04-30] MEDS: HumaLOG 300 UNITS/3 ML VIAL SC PRN ×3 (06:26→18:01)
[2020-04-30 07:59] LABS: Glucose 232 mg/dL (80-115)
[2020-04-30] MEDS: Mometasone 200 MCG/Formoterol 5 MCG 120 PUFF INHALER INH SCH ×2 (08:00→19:03)
[2020-04-30] MEDS: Citalopram 20 MG TAB PO SCH (09:38)
[2020-04-30] MEDS: Gabapentin 300 MG CAP PO SCH ×3 (09:38→21:05)
[2020-04-30] MEDS: Famotidine 20 MG TAB PO SCH (09:38)
[2020-04-30] MEDS: Aspirin 81 mg Enteric Coated Tablet PO SCH (09:38)
[2020-04-30] MEDS: Carvedilol 3.125 MG TAB PO SCH ×2 (09:38→21:05)
[2020-04-30] MEDS: Heparin 5,000 UNITS/ML VIAL SC SCH ×3 (09:38→21:06)
[2020-04-30] MEDS: Insulin Glargine 30 UNITS in Pre-Filled Syringe 1 EACH SC SCH ×2 (09:39→21:07)
[2020-04-30 12:06] LABS: Glucose 278 mg/dL (80-115)
--- NOTE | 2020-04-30 15:00 | PDOC.HOSPP ---
- Subjective Encounter Date: 04/30/20 Encounter Time: 13:00 Subjective: Patient was seen and examined in bed. She feels much better today. She has been moved out of CCU to [facility]. Had BiPAP overnight now on nasal cannula. She has ongoing shortness of breath and cough. - Objective Vital Signs & Weight: Vital Signs (12 hours) Temp Pulse Resp Pulse Ox 04/30/20 11:27 96.4 F L 04/30/20 11:24 94 18 100 04/30/20 08:00 100 04/30/20 07:59 72 17 100 04/30/20 07:03 97.2 F L 04/30/20 07:00 82 18 100 04/30/20 03:58 97.2 F L 16 Weight Admit Weight 221 lb Weight 218 lb 3.2 oz Most Recent Monitor Data Heart Rate from ECG 86 NIBP 175/102 NIBP BP-Mean 126 Respiration from ECG 17 SpO2 97 I&O: 04/29/20 04/30/20 05/01/20 06:59 06:59 06:59 Intake Total 97 2236 Output Total [id number] [id number] Result Diagrams: 04/29/20 03:29 04/30/20 11:32 Additional Labs: Accuchecks 04/30/20 04/30/20 04/29/20 11:09 06:27 20:04 POC Glucose 250 H 212 H 263 H 04/29/20 16:37 POC Glucose 181 H Hospitalist ROS - Medication Medications: Active Medications Generic Name Dose Route Start Last Admin Trade Name Freq PRN Reason Stop Dose Admin Albuterol/Ipratropium 3 ml 04/28/20 11:00 04/30/20 11:24 Ipratropium/Albuterol Sulfate 3 Ml Neb NEB 3 ml [id number] KLAUDIA Administration Aspirin 81 mg 04/28/20 09:00 04/30/20 09:38 Aspirin 81 Mg Enteric Coated Tablet PO 81 mg DAILY KLAUDIA Administration Carvedilol 3.125 mg 04/29/20 21:00 04/30/20 09:38 Carvedilol 3.125 Mg Tab PO 3.125 mg BID KLAUDIA Administration Citalopram Hydrobromide 20 mg 04/28/20 09:00 04/30/20 09:38 Citalopram 20 Mg Tab PO 20 mg DAILY KLAUDIA Administration Divalproex Sodium 500 mg 04/28/20 21:00 04/29/20 19:[address] 500 Mg Tab PO 500 mg HS KLAUDIA Administration Famotidine 20 mg 04/28/20 09:00 04/30/20 09:38 Famotidine 20 Mg Tab PO 20 mg DAILY KLAUDIA Administration Furosemide 40 mg 04/28/20 06:00 04/30/20 14:30 Furosemide 40 Mg/4 Ml Vial SLOW IVP 40 mg 0600,1400 KLAUDIA Administration Gabapentin 300 mg 04/28/20 09:00 04/30/20 14:30 Gabapentin 300 Mg Cap PO 300 mg TID KLAUDIA Administration Heparin Sodium (Porcine) 5,000 units 04/28/20 09:00 04/30/20 14:30 Heparin 5,000 Units/Ml Vial SC 5,000 units TID KLAUDIA Administration Ceftriaxone Sodium 2 gm/ 100 mls @ 200 mls/hr 04/27/20 22:00 04/29/20 21:11 Sodium Chloride IVPB 100 mls Q24HR KLAUDIA Administration Sodium Chloride 1,000 mls @ 50 mls/hr 04/28/20 12:00 04/30/20 04:56 Normal Saline 0.9% IV 1,000 mls .Q20H KLAUDIA Administration Insulin Glargine 30 units/ 0.3 mls @ 0 mls/hr 04/29/20 11:23 04/30/20 09:39 Miscellaneous Medication SC 0.3 mls BID KLAUDIA Administration As Directed Insulin Human Lispro 0 units 04/27/20 21:39 04/30/20 11:48 Humalog 300 Units/3 Ml Vial SC 3 unit .MILD SLIDING SCALE PRN Administration Mild Correctional Scale Insulin Human Lispro 0 units 04/27/20 21:39 04/28/20 21:47 Humalog 300 Units/3 Ml Vial SC 2 unit .BEDTIME SLIDING SC PRN Administration Bedtime Correctional Scale Methylprednisolone Sodium Succinate 40 mg 04/27/20 22:00 04/30/20 09:38 Methylprednisolone Sod Succ 40 Mg Vial IVP 40 mg 0400,1000,1600,2200 KLAUDIA Administration Mometasone Furoate/Formoterol Fumar 2 puff 04/28/20 18:30 04/30/20 08:00 Mometasone 200 Mcg/Formoterol 5 Mcg 120 Puff Inhaler INH 2 puff BID-RT KLAUDIA Administration - Exam General - other findings: Patient in bed, in no acute distress. Heart - other findings: S1-S2 present. No murmurs gallops or rubs. Respiratory - other findings: Reduced air entry bilaterally. Scattered wheezi ng. Nasal cannula in place Gastrointestinal - other findings: Soft, nontender, nondistended bowel sounds present Extremities: 2+ LE edema Extremities - other findings: Left BKA, right first toe gangrene. 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 Currently made some improvement will transition out of CCU to IMCU. Currently awaiting surgery and vascular surgery input on severe PVD and amputation. Acute hypoxic respiratory failure Likely secondary to CHF exacerbation/COPD exacerbation Continue diuresis on Lasix Continue on BiPAP and nasal oxygen as needed. Pulmonology on board. CHF exacerbation BNP 430 Echocardiogram shows EF of 50 to 55% with diastolic dysfunction. We will continue on Lasix 40 mg twice daily Daily weights Monitor BMP Carvedilol/Entresto Continue on DuoNeb Cardiology followingappreciate input. COPD exacerbation On Solu-Medrol and breathing treatment We will switch from Solu-Medrol to oral prednisone daily on account of hypoglycemia BiPAP as needed however on nasal oxygen. Continue ceftriaxone. Close monitoring. Peripheral arterial disease with dry gangrene of right foot Evaluation by vascular surgery Further input once medically stable Wound on left BKA stump Surgery evaluated Recommend above-knee amputation once medically stable. Wound care following. Appreciate surgery input Carotid artery disease Status post stenting Continue on aspirin Cardiology following. Hyperkalemia Potassium 6.1 presentation improved to 5.2 yesterday. likely due to BOBBY Continue BMP monitoring BOBBY Improving Likely due to heart failure We will continue monitoring. BMP monitoring. Diabetes mellitus type II with peripheral neuropathy A1c 6.5 This likely due to Solu-Medrol which she is receiving every 4 We will discontinue Solu-Medrol and continue on oral prednisone 40 mg daily. We will check Currently continue on glargine 30 twice daily however blood sugar still remains high We will increase to 34 twice daily with correctional Hypertension Blood pressure sustained above the 160s May be due to steroids However we will start low-dose amlodipine for now. VT prophylaxisHeparin
--- NOTE | 2020-04-30 15:57 | PRG ---
DATE OF SERVICE: 04/30/2020 SUBJECTIVE: Nilda Menendez is in no distress. OBJECTIVE: VITAL SIGNS: Heart rate is in the 80s, blood pressure 145/77, respiratory rates in the teens, oximetry is 97%. LUNGS: Free of wheezes. HEART: Regular rhythm. ABDOMEN: Soft, nontender. EXTREMITIES: Left lower extremity amputations site is dressed. Her 4th toe on right foot has a scab on it. LABORATORY DATA: White count 9.4, hemoglobin 8.3, platelets 268. Glucose 278 today. IMPRESSION: 1. Chronic obstructive pulmonary disease, clinically stable. 2. Status post lower extremity amputation below the knee on the left. 3. Ulcer on her 4th toe. 4. Diabetes. 5. Chronic kidney disease. 6. Diastolic dysfunction. PLAN: Continue current care. Job ID: [id number]
[2020-04-30 17:05] LABS: Anion Gap 12 mmol/L (10-20); BUN (Urea Nitrogen) 32 mg/dL (9.8-20.1); Calc. Creatinine Clearance 80 mL/min (70-130); Calcium 8.7 mg/dL (7.8-10.44); Carbon Dioxide 33 mmol/L (23-31); Chloride 98 mmol/L (98-107); Estimated GFR-MDRD 49; Glucose 278 mg/dL (80-115); Potassium 4.2 mmol/L (3.5-5.1); Sodium 139 mmol/L (136-145)
[2020-04-30] MEDS: Atorvastatin Calcium 40 MG TAB PO SCH (21:02)
[2020-04-30] MEDS: Amlodipine 5 MG TAB PO SCH (21:02)
[2020-04-30] MEDS: Divalproex Sodium DR 500 MG TAB PO SCH (21:05)
[2020-04-30] MEDS: cefTRIAXone\\ROCEPHIN 2 GM in Sodium Chloride 0.9% 100 ML IVPB SCH (21:15)
[2020-05-01] MEDS: Sodium Chloride 0.9% 1,000 ML IV SCH ×2 (00:02→23:16)
[2020-05-01 03:56] LABS: #Lymphocytes 2.5 thou/uL (1.20-3.40); #Monocytes 0.7 thou/uL (0.11-0.59); #Neutrophils 6.4 thou/uL (1.40-6.50); %Basophils 0.2 % (0.0-1.0); %Eosinophils 0.4 % (0.0-10.0); %Lymphocytes 25.8 % (21.0-51.0); %Neutrophils 66.5 % (42.0-75.0); Hemoglobin 9.1 g/dL (12.0-16.0); Mean Corpuscular HGB CONC 31.5 g/dL (32.0-36.0); Mean Platelet Volume 7.5 fL (7.4-10.4); Platelet Count 295 thou/uL (130-400); RBC Distribution Width 15.6 % (11.5-14.5); Red Blood Cell (RBC) Count 3.13 mill/uL (4.20-5.40); White Blood Cell (WBC) Count 9.6 thou/uL (4.8-10.8)
[2020-05-01 04:15] LABS: Anion Gap 12 mmol/L (10-20); BUN (Urea Nitrogen) 29 mg/dL (9.8-20.1); Calc. Creatinine Clearance 97 mL/min (70-130); Calcium 8.2 mg/dL (7.8-10.44); Carbon Dioxide 32 mmol/L (23-31); Chloride 100 mmol/L (98-107); Estimated GFR-MDRD 61; Glucose 149 mg/dL (80-115); Sodium 140 mmol/L (136-145)
[2020-05-01] MEDS: Furosemide 40 MG/4 ML VIAL SLOW IVP SCH ×2 (05:10→14:02)
[2020-05-01] MEDS: Mometasone 200 MCG/Formoterol 5 MCG 120 PUFF INHALER INH SCH ×2 (06:56→18:06)
[2020-05-01 08:11] LABS: Glucose 99 mg/dL (80-115)
[2020-05-01] MEDS: Insulin Glargine 30 UNITS in Pre-Filled Syringe 1 EACH SC SCH ×2 (09:01→20:38)
[2020-05-01] MEDS: predniSONE 20 MG TAB PO SCH (09:01)
[2020-05-01] MEDS: Aspirin 81 mg Enteric Coated Tablet PO SCH (09:01)
[2020-05-01] MEDS: Carvedilol 3.125 MG TAB PO SCH ×2 (09:02→20:35)
[2020-05-01] MEDS: Heparin 5,000 UNITS/ML VIAL SC SCH ×3 (09:02→20:35)
[2020-05-01] MEDS: Citalopram 20 MG TAB PO SCH (09:02)
[2020-05-01] MEDS: Famotidine 20 MG TAB PO SCH (09:02)
[2020-05-01] MEDS: Gabapentin 300 MG CAP PO SCH ×3 (09:02→20:34)
[2020-05-01 11:44] LABS: Glucose 111 mg/dL (80-115)
--- NOTE | 2020-05-01 14:30 | PDOC.HOSPP ---
- Subjective Encounter Date: 05/01/20 Encounter Time: 10:00 Subjective: Seen and examined in bed. Feels much better today. She did not require any BiPAP overnight. Currently on nasal cannula and eating breakfast. She denies any chest pain - Objective Vital Signs & Weight: Vital Signs (12 hours) Temp Pulse Resp Pulse Ox 05/01/20 11:11 98.6 F 05/01/20 11:09 96.7 F L 05/01/20 10:31 78 11 L 97 05/01/20 07:29 96 05/01/20 07:15 96.7 F L 05/01/20 06:56 74 17 98 05/01/20 03:50 97.9 F Weight Admit Weight 221 lb Weight 218 lb 3.2 oz Most Recent Monitor Data Heart Rate from ECG 71 NIBP 114/72 NIBP BP-Mean 86 Respiration from ECG 16 SpO2 89 I&O: 04/30/20 05/01/20 05/02/20 06:59 06:59 06:59 Intake Total 0189 1545 Output Total 6285 5370 [facility] -5010 -7405 Result Diagrams: 05/01/20 03:15 05/01/20 11:16 Additional Labs: Accuchecks 05/01/20 05/01/20 04/30/20 10:44 05:43 20:52 POC Glucose 112 H 111 H 299 H 04/30/20 16:51 POC Glucose 255 H Hospitalist ROS - Medication Medications: Active Medications Generic Name Dose Route Start Last Admin Trade Name Freq PRN Reason Stop Dose Admin Albuterol/Ipratropium 3 ml 04/28/20 11:00 05/01/20 10:31 Ipratropium/Albuterol Sulfate 3 Ml Neb NEB 3 ml [id number] KLAUDIA Administration Amlodipine Besylate 5 mg 04/30/20 21:00 04/30/20 21:02 Amlodipine 5 Mg Tab PO 5 mg HS KLAUDIA Administration Aspirin 81 mg 04/28/20 09:00 05/01/20 09:01 Aspirin 81 Mg Enteric Coated Tablet PO 81 mg DAILY KLAUDIA Administration Atorvastatin Calcium 40 mg 04/30/20 21:00 04/30/20 21:02 Atorvastatin Calcium 40 Mg Tab PO 40 mg HS KLAUDIA Administration Carvedilol 3.125 mg 04/29/20 21:00 05/01/20 09:02 Carvedilol 3.125 Mg Tab PO 3.125 mg BID KLAUDIA Administration Citalopram Hydrobromide 20 mg 04/28/20 09:00 05/01/20 09:02 Citalopram 20 Mg Tab PO 20 mg DAILY KLAUDIA Administration Divalproex Sodium 500 mg 04/28/20 21:00 04/30/20 21:[address] 500 Mg Tab PO 500 mg HS KLAUDIA Administration Famotidine 20 mg 04/28/20 09:00 05/01/20 09:02 Famotidine 20 Mg Tab PO 20 mg DAILY KLAUDIA Administration Furosemide 40 mg 04/28/20 06:00 05/01/20 14:02 Furosemide 40 Mg/4 Ml Vial SLOW IVP 40 mg 0600,1400 KLAUDIA Administration Gabapentin 300 mg 04/28/20 09:00 05/01/20 14:02 Gabapentin 300 Mg Cap PO 300 mg TID KLAUDIA Administration Heparin Sodium (Porcine) 5,000 units 04/28/20 09:00 05/01/20 14:02 Heparin 5,000 Units/Ml Vial SC 5,000 units TID KLAUDIA Administration Ceftriaxone Sodium 2 gm/ 100 mls @ 200 mls/hr 04/27/20 22:00 04/30/20 21:15 Sodium Chloride IVPB 100 mls Q24HR KLAUDIA Administration Sodium Chloride 1,000 mls @ 50 mls/hr 04/28/20 12:00 05/01/20 00:02 Normal Saline 0.9% IV 1,000 mls .Q20H KLAUDIA Administration Insulin Glargine 30 units/ 0.3 mls @ 0 mls/hr 04/29/20 11:23 05/01/20 09:01 Miscellaneous Medication SC 0.3 mls BID KLAUDIA Administration As Directed Insulin Human Lispro 0 units 04/27/20 21:39 04/30/20 18:01 Humalog 300 Units/3 Ml Vial SC 4 unit .MILD SLIDING SCALE PRN Administration Mild Correctional Scale Insulin Human Lispro 0 units 04/27/20 21:39 04/28/20 21:47 Humalog 300 Units/3 Ml Vial SC 2 unit .BEDTIME SLIDING SC PRN Administration Bedtime Correctional Scale Mometasone Furoate/Formoterol Fumar 2 puff 04/28/20 18:30 05/01/20 06:56 Mometasone 200 Mcg/Formoterol 5 Mcg 120 Puff Inhaler INH 2 puff BID-RT KLAUDIA Administration Prednisone 40 mg 05/01/20 08:00 05/01/20 09:01 Prednisone 20 Mg Tab PO 40 mg QAM-WM KLAUDIA Administration - Exam General - other findings: In bed, no acute distress. Heart - other findings: S1-S2 present and normal. No murmurs gallops rubs Respiratory - other findings: Entry adequate bilaterally. Gastrointestinal - other findings: Soft, nontender. Bowel sounds present normal. Extremities - other findings: BKA on left. Wound dressed. Pedal edema. 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 Currently made some improvement will transition out of CCU to IMCU. Did not require any BiPAP overnight Currently awaiting surgery and vascular surgery input on severe PVD and amputation. Acute hypoxic respiratory failure Likely secondary to CHF exacerbation/COPD exacerbation Continue diuresis on Lasix Off BiPAP nowcontinue on oxygen by nasal cannula. Pulmonology on board. CHF exacerbation BNP 430 Echocardiogram shows EF of 50 to 55% with diastolic dysfunction. We will continue on Lasix 40 mg twice daily Daily weights Monitor BMP Carvedilol/Entresto Continue on DuoNeb Cardiology followingappreciate input. COPD exacerbation On Solu-Medrol and breathing treatment We will switch from Solu-Medrol to oral prednisone daily on account of hypoglycemia BiPAP as needed however on nasal oxygen. Continue ceftriaxone. Close monitoring. Peripheral arterial disease with dry gangrene of right foot Evaluation by vascular surgery Further input once medically stable Wound on left BKA stump Surgery evaluated Recommend above-knee amputation once medically stable. Wound care following. Appreciate surgery input Possible above-knee amputation tomorrow Carotid artery disease Status post stenting Continue on aspirin Cardiology following. Hyperkalemia Resolved Continue monitoring. BOBBY Improving Likely due to heart failure We will continue monitoring. BMP monitoring. Diabetes mellitus type II with peripheral neuropathy Blood sugar control improved A1c 6.5 Currently not dieting 30 units twice daily, correctional dosing Monitor insulin Hypertension Generally stable Continue blood pressure medications VT prophylaxisHeparin
--- NOTE | 2020-05-01 15:07 | PRG ---
DATE OF SERVICE: 05/01/2020 SUBJECTIVE: Ms. Menendez is in no distress today. She says she is feeling better. OBJECTIVE: VITAL SIGNS: On exam, she is not wheezing. Heart rate 67, respiratory rate is 20, oximetry is 94% on 2 L, and blood pressure 114/72. LUNGS: Clear. HEART: Regular rhythm. ABDOMEN: Soft. EXTREMITIES: Apparently, she is tentatively on the schedule tomorrow for an [id number] amputation. LABORATORY DATA: White count 9.6, hemoglobin 9.1, and platelets 295. Electrolytes are essentially normal. IMPRESSION: Severe peripheral vascular disease with failure of her lower extremity [id number] amputation to heal. She will have an [id number] amputation tentatively tomorrow per what she told me. I do not see that this is on the schedule yet. From a chronic obstructive pulmonary disease standpoint, she is stabilized and probably as good as she will be for an operative procedure. Job ID: [id number]
[2020-05-01 17:19] LABS: Glucose 177 mg/dL (80-115)
[2020-05-01] MEDS: Atorvastatin Calcium 40 MG TAB PO SCH (20:34)
[2020-05-01] MEDS: Amlodipine 5 MG TAB PO SCH (20:34)
[2020-05-01] MEDS: Divalproex Sodium DR 500 MG TAB PO SCH (20:35)
[2020-05-01 21:35] LABS: Glucose 231 mg/dL (80-115)
[2020-05-01] MEDS: cefTRIAXone\\ROCEPHIN 2 GM in Sodium Chloride 0.9% 100 ML IVPB SCH (23:16)
[2020-05-02 04:08] LABS: #Eosinphils 0.1 thou/uL (0.0-0.7); #Lymphocytes 2.7 thou/uL (1.20-3.40); #Monocytes 0.6 thou/uL (0.11-0.59); #Neutrophils 5.5 thou/uL (1.40-6.50); %Basophils 0.4 % (0.0-1.0); %Eosinophils 1.5 % (0.0-10.0); %Lymphocytes 30.4 % (21.0-51.0); %Monocytes 6.8 % (0.0-10.0); Hemoglobin 9.1 g/dL (12.0-16.0); Mean Corpuscular HGB CONC 30.7 g/dL (32.0-36.0); Mean Corpuscular Hemoglobin 28.3 pg (27.0-31.0); Mean Corpuscular Volume 92.4 fL (78.0-98.0); Mean Platelet Volume 7.8 fL (7.4-10.4); Platelet Count 289 thou/uL (130-400); RBC Distribution Width 15.8 % (11.5-14.5); Red Blood Cell (RBC) Count 3.21 mill/uL (4.20-5.40)
[2020-05-02 04:32] LABS: Anion Gap 11 mmol/L (10-20); BUN (Urea Nitrogen) 30 mg/dL (9.8-20.1); Calc. Creatinine Clearance 99 mL/min (70-130); Carbon Dioxide 34 mmol/L (23-31); Chloride 99 mmol/L (98-107); Estimated GFR-MDRD 62; Potassium 3.7 mmol/L (3.5-5.1); Sodium 140 mmol/L (136-145)
[2020-05-02 04:33] LABS: Calcium 8.2 mg/dL (7.8-10.44); Glucose 103 mg/dL (80-115)
[2020-05-02] MEDS: Furosemide 40 MG/4 ML VIAL SLOW IVP SCH ×2 (05:48→14:49)
[2020-05-02 07:33] LABS: Glucose 69 mg/dL (80-115)
[2020-05-02] MEDS: Mometasone 200 MCG/Formoterol 5 MCG 120 PUFF INHALER INH SCH ×2 (08:20→18:10)
--- NOTE | 2020-05-02 09:30 | PRG ---
DATE OF SERVICE: 05/02/2020 SUBJECTIVE: Ms. Menendez is currently stable. She is awaiting BKA. Her recent echo did suggest a normal LVEF. Diastolic dysfunction present. OBJECTIVE: VITAL SIGNS: Blood pressure 130/90, pulse 76, respirations 20. LUNGS: Clear to auscultation. HEART: Regular rate and rhythm. ABDOMEN: Soft, nontender, nondistended. EXTREMITIES: No edema. PERTINENT LABORATORY DATA: Hemoglobin 9.1, hematocrit 29.7, creatinine 0.9. IMPRESSION: 1. Shortness of breath. 2. Acute respiratory distress. 3. Severe PVD. 4. Noncompliance. RECOMMENDATIONS: recent echo did suggest normal LVEF. Her recent episode of worsening respiratory distress likely secondary to underlying COPD in addition to diastolic dysfunction. Continue current medical therapy. Current CV medications include the followin. Amlodipine 5 mg at bedtime. 2. Aspirin 81 daily. 3. Atorvastatin 40 at bedtime, in addition to carvedilol 3.125 one p.o. b.i.d. Her platelet count is 69,000. Once it decreases to less than 50,000, may consider stopping aspirin. Job ID: [id number]
--- NOTE | 2020-05-02 09:47 | PRG ---
DATE OF SERVICE: 05/02/2020 SUBJECTIVE: Ms. Menendez has no complaints. She says she is breathing. She is back to her baseline. OBJECTIVE: VITAL SIGNS: Heart rate 78, respiratory rate 17, oximetry is 98% on 2 L, blood pressure 132/100. LUNGS: Clear. HEART: Regular rhythm. ABDOMEN: Soft. EXTREMITIES: Lower extremity is bandaged. She is eating breakfast, so it is assumed that she is not having surgery today. We will continue to follow. It was felt that her respiratory status was predominantly COPD to a lesser degree diastolic dysfunction. This appears to have stabilized. She is probably optimum for consideration for surgery. Job ID: [id number]
[2020-05-02] MEDS: Carvedilol 3.125 MG TAB PO SCH ×2 (09:48→20:38)
[2020-05-02] MEDS: Aspirin 81 mg Enteric Coated Tablet PO SCH (09:48)
[2020-05-02] MEDS: Famotidine 20 MG TAB PO SCH (09:48)
[2020-05-02] MEDS: Citalopram 20 MG TAB PO SCH (09:49)
[2020-05-02] MEDS: Gabapentin 300 MG CAP PO SCH ×3 (09:49→20:41)
[2020-05-02] MEDS: predniSONE 20 MG TAB PO SCH (09:50)
[2020-05-02] MEDS: Heparin 5,000 UNITS/ML VIAL SC SCH ×3 (09:50→20:41)
[2020-05-02] MEDS: Insulin Glargine 30 UNITS in Pre-Filled Syringe 1 EACH SC SCH ×2 (09:51→20:41)
[2020-05-02 12:13] LABS: Glucose 90 mg/dL (80-115)
--- NOTE | 2020-05-02 14:26 | PRG ---
DATE OF SERVICE: 05/02/2020 Nilda Menendez is doing better today. She has been moved to [facility] [place] The patient is breathing unassisted. Saturations are good. I have spoken with Dr. Bob Rivera. Plan is for left AKA on Saturday. Dr. Segundo was seeing her for PAD and dry gangrenous changes in right foot and in his absence this week, Dr. Greenberg will see her. I have spoken with Dr. Greenberg. We will plan left AKA on Saturday. Job ID: [id number]
--- NOTE | 2020-05-02 15:48 | PDOC.HOSPP ---
- Subjective Encounter Date: 05/02/20 Encounter Time: 15:45 Subjective: Patient was seen and examined in bed. Significant improvement. Breathing so much better She has no chest pain no worsening shortness of breath. - Objective Vital Signs & Weight: Vital Signs (12 hours) Temp Pulse Resp Pulse Ox 05/02/20 15:28 98.4 F 05/02/20 15:22 75 18 05/02/20 11:57 76 18 99 05/02/20 11:00 98.3 F 05/02/20 08:20 97 05/02/20 08:18 78 17 98 05/02/20 08:00 98 05/02/20 07:31 98.0 F 05/02/20 03:58 98.0 F Weight Admit Weight 221 lb Weight 218 lb 3.2 oz Most Recent Monitor Data Heart Rate from ECG 78 NIBP 96/62 NIBP BP-Mean 73 Respiration from ECG 19 SpO2 98 I&O: 05/01/20 05/02/20 05/03/20 06:59 06:59 06:59 Intake Total 1545 2880 Output Total 5374 1850 Balance -9564 -1580 Result Diagrams: 05/02/20 03:25 05/02/20 11:50 Additional Labs: Accuchecks 05/02/20 05/02/20 05/01/20 10:36 05:58 20:39 POC Glucose 103 H 70 210 H 05/01/20 16:51 POC Glucose 181 H Hospitalist ROS - Medication Medications: Active Medications Generic Name Dose Route Start Last Admin Trade Name Freq PRN Reason Stop Dose Admin Albuterol/Ipratropium 3 ml 04/28/20 11:00 05/02/20 15:22 Ipratropium/Albuterol Sulfate 3 Ml Neb NEB 3 ml [id number] KLAUDIA Administration Amlodipine Besylate 5 mg 04/30/20 21:00 05/01/20 20:34 Amlodipine 5 Mg Tab PO 5 mg HS KLAUDIA Administration Aspirin 81 mg 04/28/20 09:00 05/02/20 09:48 Aspirin 81 Mg Enteric Coated Tablet PO 81 mg DAILY KLAUDIA Administration Atorvastatin Calcium 40 mg 04/30/20 21:00 05/01/20 20:34 Atorvastatin Calcium 40 Mg Tab PO 40 mg HS KLAUDIA Administration Carvedilol 3.125 mg 04/29/20 21:00 05/02/20 09:48 Carvedilol 3.125 Mg Tab PO 3.125 mg BID KLAUDIA Administration Citalopram Hydrobromide 20 mg 04/28/20 09:00 05/02/20 09:49 Citalopram 20 Mg Tab PO 20 mg DAILY KLAUDIA Administration Divalproex Sodium 500 mg 04/28/20 21:00 05/01/20 20:[address] 500 Mg Tab PO 500 mg HS KLAUDIA Administration Famotidine 20 mg 04/28/20 09:00 05/02/20 09:48 Famotidine 20 Mg Tab PO 20 mg DAILY KLAUDIA Administration Furosemide 40 mg 04/28/20 06:00 05/02/20 14:49 Furosemide 40 Mg/4 Ml Vial SLOW IVP 40 mg 0600,1400 KLAUDIA Administration Gabapentin 300 mg 04/28/20 09:00 05/02/20 14:48 Gabapentin 300 Mg Cap PO 300 mg TID KLAUDIA Administration Heparin Sodium (Porcine) 5,000 units 04/28/20 09:00 05/02/20 14:48 Heparin 5,000 Units/Ml Vial SC 5,000 units TID KLAUDIA Administration Ceftriaxone Sodium 2 gm/ 100 mls @ 200 mls/hr 04/27/20 22:00 05/01/20 23:16 Sodium Chloride IVPB 100 mls Q24HR KLAUDIA Administration Sodium Chloride 1,000 mls @ 50 mls/hr 04/28/20 12:00 05/01/20 23:16 Normal Saline 0.9% IV 1,000 mls .Q20H KLAUDIA Administration Insulin Glargine 30 units/ 0.3 mls @ 0 mls/hr 04/29/20 11:23 05/02/20 09:51 Miscellaneous Medication SC Not Given BID KLAUDIA As Directed Insulin Human Lispro 0 units 04/27/20 21:39 04/30/20 18:01 Humalog 300 Units/3 Ml Vial SC 4 unit .MILD SLIDING SCALE PRN Administration Mild Correctional Scale Insulin Human Lispro 0 units 04/27/20 21:39 04/28/20 21:47 Humalog 300 Units/3 Ml Vial SC 2 unit .BEDTIME SLIDING SC PRN Administration Bedtime Correctional Scale Mometasone Furoate/Formoterol Fumar 2 puff 04/28/20 18:30 09/28/20 08:20 Mometasone 200 Mcg/Formoterol 5 Mcg 120 Puff Inhaler INH 2 puff BID-RT KLAUDIA Administration Prednisone 40 mg 05/01/20 08:00 05/02/20 09:50 Prednisone 20 Mg Tab PO 40 mg QAM-WM KLAUDIA Administration - Exam General Appearance: awake alert Heart: RRR, no murmur, no gallops, no rubs, normal peripheral pulses Respiratory - other findings: Occasional wheezing bilaterally. On nasal cannula Gastrointestinal: soft, non-tender, non-distended, normal bowel sounds Extremities - other findings: BK amputation on left. Neurological: cranial nerve grossly intact, no new deficit Psychiatric: A&O x 3 Hosp A/P - Plan This is a 65-year-old female patient with a history of CHF, 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 Currently made some improvement will transition out of CCU to IMCU. Did not require any BiPAP overnight Currently awaiting surgery and vascular surgery input on severe PVD and amputation for above-knee amputation on leftpossibly tomorrow. Acute hypoxic respiratory failure Likely secondary to CHF exacerbation/COPD exacerbation Continue diuresis on Lasix Off BiPAP nowcontinue on oxygen by nasal cannula. Pulmonology on board. CHF exacerbation BNP 430 Echocardiogram shows EF of 50 to 55% with diastolic dysfunction. We will continue on Lasix 40 mg twice daily Daily weights Monitor BMP Carvedilol/Entresto Continue on DuoNeb Cardiology followingappreciate input. COPD exacerbation On Solu-Medrol and breathing treatment We will switch from Solu-Medrol to oral prednisone daily on account of hypoglycemia BiPAP as needed however on nasal oxygen. Continue ceftriaxone. Close monitoring. Peripheral arterial disease with dry gangrene of right foot Evaluation by vascular surgery Further input once medically stable Wound on left BKA stump Surgery evaluated Recommend above-knee amputation once medically stable. Wound care following. Appreciate surgery input Possible above-knee amputation tomorrow Carotid artery disease Status post stenting Continue on aspirin Cardiology following. Hyperkalemia Resolved Continue monitoring. BOBBY Improving Likely due to heart failure We will continue monitoring. BMP monitoring. Diabetes mellitus type II with peripheral neuropathy Blood sugar control improved A1c 6.5 Currently not dieting 30 units twice daily, correctional dosing Monitor insulin Hypertension Generally stable Continue blood pressure medications VT prophylaxisHeparin
[2020-05-02] MEDS: Sodium Chloride 0.9% 1,000 ML IV SCH (17:02)
[2020-05-02 17:28] LABS: Glucose 195 mg/dL (80-115)
[2020-05-02] MEDS: Divalproex Sodium DR 500 MG TAB PO SCH (20:38)
[2020-05-02] MEDS: Atorvastatin Calcium 40 MG TAB PO SCH (20:40)
[2020-05-02] MEDS: Amlodipine 5 MG TAB PO SCH (20:40)
[2020-05-02 21:07] LABS: Glucose 311 mg/dL (80-115)
[2020-05-02] MEDS: cefTRIAXone\\ROCEPHIN 2 GM in Sodium Chloride 0.9% 100 ML IVPB SCH (22:24)
[2020-05-03] MEDS: Furosemide 40 MG/4 ML VIAL SLOW IVP SCH ×2 (05:37→14:07)
[2020-05-03 08:08] LABS: Glucose 189 mg/dL (80-115)
[2020-05-03] MEDS: Mometasone 200 MCG/Formoterol 5 MCG 120 PUFF INHALER INH SCH ×2 (08:13→18:17)
[2020-05-03] MEDS: Gabapentin 300 MG CAP PO SCH ×3 (09:42→21:29)
[2020-05-03] MEDS: predniSONE 20 MG TAB PO SCH (09:42)
[2020-05-03] MEDS: Famotidine 20 MG TAB PO SCH (09:42)
[2020-05-03] MEDS: Insulin Glargine 30 UNITS in Pre-Filled Syringe 1 EACH SC SCH ×2 (09:43→21:30)
[2020-05-03] MEDS: Heparin 5,000 UNITS/ML VIAL SC SCH ×3 (09:43→21:30)
[2020-05-03] MEDS: Aspirin 81 mg Enteric Coated Tablet PO SCH (09:43)
[2020-05-03] MEDS: Citalopram 20 MG TAB PO SCH (09:43)
[2020-05-03] MEDS: Carvedilol 3.125 MG TAB PO SCH ×2 (09:47→21:29)
[2020-05-03 10:32] LABS: Anion Gap 15 mmol/L (10-20); BUN (Urea Nitrogen) 26 mg/dL (9.8-20.1); Calc. Creatinine Clearance 105 mL/min (70-130); Calcium 8.1 mg/dL (7.8-10.44); Carbon Dioxide 29 mmol/L (23-31); Chloride 101 mmol/L (98-107); Estimated GFR-MDRD 67; Glucose 201 mg/dL (80-115); Potassium 3.6 mmol/L (3.5-5.1); Sodium 141 mmol/L (136-145)
[2020-05-03] MEDS: Sodium Chloride 0.9% 1,000 ML IV SCH (12:00)
--- NOTE | 2020-05-03 15:29 | PDOC.HOSPP ---
- Subjective Encounter Date: 05/03/20 Encounter Time: 15:27 Subjective: Patient was seen and examined in bed. She had a good night she has been off BiPAP for the past couple days. Creatinine improved Denies any chest pain - Objective Vital Signs & Weight: Vital Signs (12 hours) Temp Pulse Resp Pulse Ox 05/03/20 11:58 98.0 F 05/03/20 08:13 73 18 100 05/03/20 08:00 98 05/03/20 07:26 97.6 F 05/03/20 04:00 98.1 F Weight Admit Weight 221 lb Weight 218 lb 3.2 oz Most Recent Monitor Data Heart Rate from ECG 79 NIBP 165/86 NIBP BP-Mean 112 Respiration from ECG 23 SpO2 91 I&O: 05/02/20 05/03/20 05/04/20 06:59 06:59 06:59 Intake Total 2880 2216 Output Total 4600 4310 Balance -5770 -4176 Result Diagrams: 05/02/20 03:25 05/03/20 10:03 Additional Labs: Accuchecks 05/03/20 05/03/20 05/02/20 10:48 05:44 17:03 POC Glucose 196 H 182 H 187 H Hospitalist ROS - Medication Medications: Active Medications Generic Name Dose Route Start Last Admin Trade Name Raul PRN Reason Stop Dose Admin Albuterol/Ipratropium 3 ml 04/28/20 11:00 05/03/20 12:31 Ipratropium/Albuterol Sulfate 3 Ml Neb NEB Not Given [id number] KLAUDIA Amlodipine Besylate 5 mg 04/30/20 21:00 05/02/20 20:40 Amlodipine 5 Mg Tab PO Not Given HS KLAUDIA Aspirin 81 mg 04/28/20 09:00 05/03/20 09:43 Aspirin 81 Mg Enteric Coated Tablet PO 81 mg DAILY KLAUDIA Administration Atorvastatin Calcium 40 mg 04/30/20 21:00 05/02/20 20:40 Atorvastatin Calcium 40 Mg Tab PO 40 mg HS KLAUDIA Administration Carvedilol 3.125 mg 04/29/20 21:00 05/03/20 09:47 Carvedilol 3.125 Mg Tab PO 3.125 mg BID KLAUDIA Administration Citalopram Hydrobromide 20 mg 04/28/20 09:00 05/03/20 09:43 Citalopram 20 Mg Tab PO 20 mg DAILY KLAUDIA Administration Divalproex Sodium 500 mg 04/28/20 21:00 05/02/20 20:[address] 500 Mg Tab PO 500 mg HS KLAUDIA Administration Famotidine 20 mg 04/28/20 09:00 05/03/20 09:42 Famotidine 20 Mg Tab PO 20 mg DAILY KLAUDIA Administration Furosemide 40 mg 04/28/20 06:00 05/03/20 14:07 Furosemide 40 Mg/4 Ml Vial SLOW IVP 40 mg 0600,1400 KLAUDIA Administration Gabapentin 300 mg 04/28/20 09:00 05/03/20 14:07 Gabapentin 300 Mg Cap PO 300 mg TID KLAUDIA Administration Heparin Sodium (Porcine) 5,000 units 04/28/20 09:00 05/03/20 14:07 Heparin 5,000 Units/Ml Vial SC 5,000 units TID KLAUDIA Administration Ceftriaxone Sodium 2 gm/ 100 mls @ 200 mls/hr 04/27/20 22:00 05/02/20 22:24 Sodium Chloride IVPB 100 mls Q24HR KLAUDIA Administration Sodium Chloride 1,000 mls @ 50 mls/hr 04/28/20 12:00 05/02/20 17:02 Normal Saline 0.9% IV 1,000 mls .Q20H KLAUDIA Administration Insulin Glargine 30 units/ 0.3 mls @ 0 mls/hr 04/29/20 11:23 05/03/20 09:43 Miscellaneous Medication SC 0.3 mls BID KLAUDIA Administration As Directed Insulin Human Lispro 0 units 04/27/20 21:39 04/30/20 18:01 Humalog 300 Units/3 Ml Vial SC 4 unit .MILD SLIDING SCALE PRN Administration Mild Correctional Scale Insulin Human Lispro 0 units 04/27/20 21:39 04/28/20 21:47 Humalog 300 Units/3 Ml Vial SC 2 unit .BEDTIME SLIDING SC PRN Administration Bedtime Correctional Scale Mometasone Furoate/Formoterol Fumar 2 puff 04/28/20 18:30 05/03/20 08:13 Mometasone 200 Mcg/Formoterol 5 Mcg 120 Puff Inhaler INH 2 puff BID-RT KLAUDIA Administration Prednisone 40 mg 05/01/20 08:00 05/03/20 09:42 Prednisone 20 Mg Tab PO 40 mg QAM-[facility] Administration - Exam General Appearance: awake alert Heart: RRR, no murmur, no gallops, no rubs Respiratory - other findings: Occasional wheezing bilaterally. Gastrointestinal: soft, non-tender, non-distended, normal bowel sounds Extremities - other findings: BTL left. Bilateral edema. 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 Currently made some improvement will transition out of CCU to IMCU. Did not require any BiPAP overnight Currently awaiting surgery and vascular surgery input on severe PVD and amputation for above-knee amputation on lefttomorrow. Acute hypoxic respiratory failure Likely secondary to CHF exacerbation/COPD exacerbation Continue diuresis on Lasix Off BiPAP nowcontinue on oxygen by nasal cannula. Pulmonology on board. CHF exacerbation BNP 430 Echocardiogram shows EF of 50 to 55% with diastolic dysfunction. We will continue on Lasix 40 mg twice daily Daily weights Monitor BMP Carvedilol/Entresto Continue on DuoNeb Cardiology followingappreciate input. COPD exacerbation On Solu-Medrol and breathing treatment We will switch from Solu-Medrol to oral prednisone daily on account of hypoglycemia BiPAP as needed however on nasal oxygen. Continue ceftriaxone. On duo nebs Close monitoring. Peripheral arterial disease with dry gangrene of right foot Evaluation by vascular surgery Further input once medically stable Wound on left BKA stump Surgery evaluated Recommend above-knee amputation once medically stable. Wound care following. Appreciate surgery input Possible above-knee amputation tomorrow Carotid artery disease Status post stenting Continue on aspirin Cardiology following. Hyperkalemia Resolved Continue monitoring. BOBBY Improving Likely due to heart failure We will continue monitoring. BMP monitoring. Diabetes mellitus type II with peripheral neuropathy Blood sugar control improved A1c 6.5 Currently not dieting 30 units twice daily, correctional dosing Monitor insulin Hypertension Generally stable Continue blood pressure medications VT prophylaxisHeparin
--- NOTE | 2020-05-03 15:32 | PDOC.HOSPP ---
- Subjective Encounter Date: 05/03/20 Encounter Time: 10:00 Subjective: Patient was seen and examined in bed. She is significantly improved. Denies any chest pain shortness of breath or abdominal pain. Trach collar was removed today patient is generally well. - Objective Vital Signs & Weight: Vital Signs (12 hours) Temp Pulse Resp Pulse Ox 05/03/20 11:58 98.0 F 05/03/20 08:13 73 18 100 05/03/20 08:00 98 05/03/20 07:26 97.6 F 05/03/20 04:00 98.1 F Weight Admit Weight 221 lb Weight 218 lb 3.2 oz Most Recent Monitor Data Heart Rate from ECG 79 NIBP 165/86 NIBP BP-Mean 112 Respiration from ECG 23 SpO2 91 I&O: 05/02/20 05/03/20 05/04/20 06:59 06:59 06:59 Intake Total 2880 2216 Output Total 4600 4310 Balance -8150 -9092 Result Diagrams: 05/02/20 03:25 05/03/20 10:03 Additional Labs: Accuchecks 05/03/20 05/03/20 05/02/20 10:48 05:44 17:03 POC Glucose 196 H 182 H 187 H Hospitalist ROS - Medication Medications: Active Medications Generic Name Dose Route Start Last Admin Trade Name Freq PRN Reason Stop Dose Admin Albuterol/Ipratropium 3 ml 04/28/20 11:00 05/03/20 12:31 Ipratropium/Albuterol Sulfate 3 Ml Neb NEB Not Given [id number] KLAUDIA Amlodipine Besylate 5 mg 04/30/20 21:00 05/02/20 20:40 Amlodipine 5 Mg Tab PO Not Given HS KLAUDIA Aspirin 81 mg 04/28/20 09:00 05/03/20 09:43 Aspirin 81 Mg Enteric Coated Tablet PO 81 mg DAILY KLAUDIA Administration Atorvastatin Calcium 40 mg 04/30/20 21:00 05/02/20 20:40 Atorvastatin Calcium 40 Mg Tab PO 40 mg HS KLAUDIA Administration Carvedilol 3.125 mg 04/29/20 21:00 05/03/20 09:47 Carvedilol 3.125 Mg Tab PO 3.125 mg BID KLAUDIA Administration Citalopram Hydrobromide 20 mg 04/28/20 09:00 05/03/20 09:43 Citalopram 20 Mg Tab PO 20 mg DAILY KLAUDIA Administration Divalproex Sodium 500 mg 04/28/20 21:00 05/02/20 20:[address] 500 Mg Tab PO 500 mg HS KLAUDIA Administration Famotidine 20 mg 04/28/20 09:00 05/03/20 09:42 Famotidine 20 Mg Tab PO 20 mg DAILY KLAUDIA Administration Furosemide 40 mg 04/28/20 06:00 05/03/20 14:07 Furosemide 40 Mg/4 Ml Vial SLOW IVP 40 mg 0600,1400 KLAUDIA Administration Gabapentin 300 mg 04/28/20 09:00 05/03/20 14:07 Gabapentin 300 Mg Cap PO 300 mg TID KLAUDIA Administration Heparin Sodium (Porcine) 5,000 units 04/28/20 09:00 05/03/20 14:07 Heparin 5,000 Units/Ml Vial SC 5,000 units TID KLAUDIA Administration Ceftriaxone Sodium 2 gm/ 100 mls @ 200 mls/hr 04/27/20 22:00 05/02/20 22:24 Sodium Chloride IVPB 100 mls Q24HR KLAUDIA Administration Sodium Chloride 1,000 mls @ 50 mls/hr 04/28/20 12:00 05/02/20 17:02 Normal Saline 0.9% IV 1,000 mls .Q20H KLAUDIA Administration Insulin Glargine 30 units/ 0.3 mls @ 0 mls/hr 04/29/20 11:23 05/03/20 09:43 Miscellaneous Medication SC 0.3 mls BID KLAUDIA Administration As Directed Insulin Human Lispro 0 units 04/27/20 21:39 04/30/20 18:01 Humalog 300 Units/3 Ml Vial SC 4 unit .MILD SLIDING SCALE PRN Administration Mild Correctional Scale Insulin Human Lispro 0 units 04/27/20 21:39 04/28/20 21:47 Humalog 300 Units/3 Ml Vial SC 2 unit .BEDTIME SLIDING SC PRN Administration Bedtime Correctional Scale Mometasone Furoate/Formoterol Fumar 2 puff 04/28/20 18:30 05/03/20 08:13 Mometasone 200 Mcg/Formoterol 5 Mcg 120 Puff Inhaler INH 2 puff BID-RT KLAUDIA Administration Prednisone 40 mg 05/01/20 08:00 05/03/20 09:42 Prednisone 20 Mg Tab PO 40 mg QAM-[facility] Administration - Exam General Appearance: awake alert Eye: PERRL, anicteric sclera Neck: supple, symmetric, no JVD Heart: RRR, no murmur, no gallops Respiratory: no wheezes, no rales Gastrointestinal: soft, non-tender, non-distended, normal bowel sounds Extremities: no cyanosis, no clubbing Neurological: cranial nerve grossly intact, no weakness Psychiatric: A&O x 3 Hosp A/P - Plan This is a 65-year-old female patient with a history of CHF, 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 Currently made some improvement will transition out of CCU to IMCU. Did not require any BiPAP overnight Currently awaiting surgery and vascular surgery input on severe PVD and amputation for above-knee amputation on lefttomorrow. Acute hypoxic respiratory failure Likely secondary to CHF exacerbation/COPD exacerbation Continue diuresis on Lasix Off BiPAP nowcontinue on oxygen by nasal cannula. Pulmonology on board. CHF exacerbation BNP 430 Echocardiogram shows EF of 50 to 55% with diastolic dysfunction. We will continue on Lasix 40 mg twice daily Daily weights Monitor BMP Carvedilol/Entresto Continue on DuoNeb Cardiology followingappreciate input. COPD exacerbation On Solu-Medrol and breathing treatment We will switch from Solu-Medrol to oral prednisone daily on account of hypoglycemia BiPAP as needed however on nasal oxygen. Continue ceftriaxone. On duo nebs Close monitoring. Peripheral arterial disease with dry gangrene of right foot Evaluation by vascular surgery Further input once medically stable Wound on left BKA stump Surgery evaluated Recommend above-knee amputation once medically stable. Wound care following. Appreciate surgery input Possible above-knee amputation tomorrow Carotid artery disease Status post stenting Continue on aspirin Cardiology following. Hyperkalemia Resolved Continue monitoring. BOBBY Improving Likely due to heart failure We will continue monitoring. BMP monitoring. Diabetes mellitus type II with peripheral neuropathy Blood sugar control improved A1c 6.5 Currently not dieting 30 units twice daily, correctional dosing Monitor insulin Hypertension Generally stable Continue blood pressure medications VT prophylaxisHeparin
[2020-05-03] MEDS: HumaLOG 300 UNITS/3 ML VIAL SC PRN ×2 (17:12→21:35)
[2020-05-03 17:17] LABS: Glucose 220 mg/dL (80-115)
--- NOTE | 2020-05-03 17:55 | PRG ---
DATE OF SERVICE: 05/03/2020 SUBJECTIVE: Ms. Menendez is doing well today. She has recovered from respiratory illness, COPD exacerbation. I have discussed with Dr. Bob Rivera. The patient is fit for an operation and we will plan formal left AKA tomorrow. I have spoken with Dr. Greenberg about addressing her right leg status. PLAN: Left AKA tomorrow. Job ID: [id number]
[2020-05-03] MEDS: Budesonide 0.5 MG/2 ML NEB NEB SCH (18:22)
[2020-05-03] MEDS ORDERED: Hydrocortisone Sod Succ/PF 250 mg/2 ml Vial SLOW IVP SCH (18:30)
--- NOTE | 2020-05-03 18:32 | PRG ---
DATE OF SERVICE: 05/03/2020 SUBJECTIVE: Ms. Snow is actually very happy today. She was smiling and very quickly told me she was having surgery tomorrow. She says she is breathing near better than her baseline. OBJECTIVE: VITAL SIGNS: Heart rates in the 70s, blood pressure 141/79, respiratory rate 16, oximetry is 98%. LUNGS: Clear. HEART: Regular rhythm. ABDOMEN: Soft. She is tentatively on schedule for surgery tomorrow. She continues on broad antimicrobial coverage. PLAN: It would be ideal for her to be off steroids for wound healing, but from an operation standpoint, she probably needs a dose of steroids on-call to the operating room. I will place putting an order for that. Give her stress dose of hydrocortisone in the morning. Job ID: [id number]
[2020-05-03] MEDS: Divalproex Sodium DR 500 MG TAB PO SCH (21:29)
[2020-05-03] MEDS: Amlodipine 5 MG TAB PO SCH (21:29)
[2020-05-03] MEDS: Atorvastatin Calcium 40 MG TAB PO SCH (21:29)
[2020-05-03] MEDS: cefTRIAXone\\ROCEPHIN 2 GM in Sodium Chloride 0.9% 100 ML IVPB SCH (21:31)
[2020-05-03 21:37] LABS: Glucose 288 mg/dL (80-115)
[2020-05-04 03:41] LABS: #Eosinphils 0.1 thou/uL (0.0-0.7); #Lymphocytes 1.2 thou/uL (1.20-3.40); #Monocytes 0.4 thou/uL (0.11-0.59); #Neutrophils 6.7 thou/uL (1.40-6.50); %Basophils 0.2 % (0.0-1.0); %Eosinophils 0.9 % (0.0-10.0); %Lymphocytes 14.4 % (21.0-51.0); %Monocytes 4.5 % (0.0-10.0); %Neutrophils 80.1 % (42.0-75.0); Hemoglobin 10.3 g/dL (12.0-16.0); Mean Corpuscular HGB CONC 31.1 g/dL (32.0-36.0); Mean Corpuscular Hemoglobin 29.3 pg (27.0-31.0); Platelet Count 286 thou/uL (130-400); RBC Distribution Width 16.4 % (11.5-14.5); Red Blood Cell (RBC) Count 3.51 mill/uL (4.20-5.40); White Blood Cell (WBC) Count 8.4 thou/uL (4.8-10.8)
[2020-05-04 04:03] LABS: Anion Gap 13 mmol/L (10-20); BUN (Urea Nitrogen) 30 mg/dL (9.8-20.1); Calc. Creatinine Clearance 106 mL/min (70-130); Calcium 8.3 mg/dL (7.8-10.44); Carbon Dioxide 30 mmol/L (23-31); Chloride 99 mmol/L (98-107); Estimated GFR-MDRD 68; Glucose 242 mg/dL (80-115); Potassium 4.1 mmol/L (3.5-5.1); Sodium 138 mmol/L (136-145)
[2020-05-04] MEDS: Furosemide 40 MG/4 ML VIAL SLOW IVP SCH ×2 (05:47→14:11)
[2020-05-04] MEDS: Carvedilol 3.125 MG TAB PO SCH ×2 (05:49→21:13)
[2020-05-04] MEDS ORDERED: Hydrocortisone Sod Succ/PF 250 mg/2 ml Vial SLOW IVP SCH (07:30)
[2020-05-04] MEDS: Budesonide 0.5 MG/2 ML NEB NEB SCH ×2 (07:40→19:22)
[2020-05-04] MEDS: Mometasone 200 MCG/Formoterol 5 MCG 120 PUFF INHALER INH SCH ×2 (07:40→19:22)
[2020-05-04 08:08] LABS: Glucose 217 mg/dL (80-115)
[2020-05-04] MEDS ORDERED: Fentanyl 100 MCG/2 ML VIAL ONE (10:10)
[2020-05-04] MEDS: Sodium Chloride 0.9% 1,000 ML IV SCH (10:35)
[2020-05-04] MEDS: Aspirin 81 mg Enteric Coated Tablet PO SCH (10:38)
[2020-05-04] MEDS: Heparin 5,000 UNITS/ML VIAL SC SCH ×3 (10:38→21:14)
[2020-05-04] MEDS: Gabapentin 300 MG CAP PO SCH ×3 (10:38→21:13)
[2020-05-04] MEDS: Insulin Glargine 30 UNITS in Pre-Filled Syringe 1 EACH SC SCH ×2 (10:38→21:15)
[2020-05-04] MEDS ORDERED: Ondansetron PF 4 MG/2 ML Vial ONE (10:59)
[2020-05-04] MEDS ORDERED: EPHEDRINE 25 MG/5 ML SYRINGE ONE (10:59)
[2020-05-04] MEDS ORDERED: PROPOFOL 200 MG/20 ML VIAL ONE (10:59)
[2020-05-04] MEDS ORDERED: Lidocaine 1% PF 5 ML VIAL ONE (10:59)
[2020-05-04] MEDS ORDERED: Bupivacaine HCl 0.5%/Epinephrine 1:200,000/PF 30 ml Vial ONE (11:11)
--- NOTE | 2020-05-04 13:56 | PDOC.HOSPP ---
- Subjective Encounter Date: 05/04/20 Encounter Time: 14:46 Subjective: Patient was seen and examined in bed. She had just returned from surgery. Above-knee amputation on right. Surgery successfully patient is doing well. She denies any chest pain or worsening shortness of breath. - Objective Vital Signs & Weight: Vital Signs (12 hours) Temp Pulse Resp Pulse Ox 05/04/20 08:00 100 05/04/20 07:42 95 05/04/20 07:39 82 13 95 05/04/20 07:34 98.0 F 05/04/20 03:59 97.2 F L Weight Admit Weight 221 lb Weight 218 lb 3.2 oz Most Recent Monitor Data Heart Rate from ECG 84 NIBP 141/87 NIBP BP-Mean 105 Respiration from ECG 21 SpO2 98 I&O: 05/03/20 05/04/20 05/05/20 06:59 06:59 06:59 Intake Total 2216 2855 Output Total 4310 4050 Balance -8592 -9757 Result Diagrams: 05/04/20 03:23 05/04/20 07:36 Additional Labs: Accuchecks 05/04/20 05/04/20 05/03/20 12:32 05:48 20:42 POC Glucose 134 H 198 H 262 H 05/03/20 05/02/20 17:09 20:30 POC Glucose 207 H 290 H Hospitalist ROS - Medication Medications: Active Medications Generic Name Dose Route Start Last Admin Trade Name Freq PRN Reason Stop Dose Admin Albuterol/Ipratropium 3 ml 04/28/20 11:00 05/04/20 11:03 Ipratropium/Albuterol Sulfate 3 Ml Neb NEB Not Given [id number] KLAUDIA Amlodipine Besylate 5 mg 04/30/20 21:00 05/03/20 21:29 Amlodipine 5 Mg Tab PO 5 mg HS KLAUDIA Administration Aspirin 81 mg 04/28/20 09:00 05/04/20 10:38 Aspirin 81 Mg Enteric Coated Tablet PO Not Given DAILY KLAUDIA Atorvastatin Calcium 40 mg 04/30/20 21:00 05/03/20 21:29 Atorvastatin Calcium 40 Mg Tab PO 40 mg HS KLAUDIA Administration Budesonide 0.5 mg 05/03/20 18:30 05/04/20 07:40 Budesonide 0.5 Mg/2 Ml Neb NEB 0.5 mg BID-RT KLAUDIA Administration Carvedilol 3.125 mg 04/29/20 21:00 05/04/20 05:49 Carvedilol 3.125 Mg Tab PO 3.125 mg BID KLAUDIA Administration Citalopram Hydrobromide 20 mg 04/28/20 09:00 05/03/20 09:43 Citalopram 20 Mg Tab PO 20 mg DAILY KLAUDIA Administration Divalproex Sodium 500 mg 04/28/20 21:00 05/03/20 21:[address] 500 Mg Tab PO 500 mg HS KLAUDIA Administration Famotidine 20 mg 04/28/20 09:00 05/03/20 09:42 Famotidine 20 Mg Tab PO 20 mg DAILY KLAUDIA Administration Furosemide 40 mg 04/28/20 06:00 05/04/20 05:47 Furosemide 40 Mg/4 Ml Vial SLOW IVP 40 mg 0600,1400 KLAUDIA Administration Gabapentin 300 mg 04/28/20 09:00 05/04/20 10:38 Gabapentin 300 Mg Cap PO Not Given TID KLAUDIA Heparin Sodium (Porcine) 5,000 units 04/28/20 09:00 05/04/20 10:38 Heparin 5,000 Units/Ml Vial SC Not Given TID KLAUDIA Ceftriaxone Sodium 2 gm/ 100 mls @ 200 mls/hr 04/27/20 22:00 05/03/20 21:31 Sodium Chloride IVPB 100 mls Q24HR KLAUDIA Administration Sodium Chloride 1,000 mls @ 50 mls/hr 04/28/20 12:00 05/04/20 10:35 Normal Saline 0.9% IV Not Given .Q20H KLAUDIA Insulin Glargine 30 units/ 0.3 mls @ 0 mls/hr 04/29/20 11:23 05/04/20 10:38 Miscellaneous Medication SC Not Given BID KLAUDIA As Directed Insulin Human Lispro 0 units 04/27/20 21:39 05/03/20 17:12 Humalog 300 Units/3 Ml Vial SC 3 unit .MILD SLIDING SCALE PRN Administration Mild Correctional Scale Insulin Human Lispro 0 units 04/27/20 21:39 05/03/20 21:35 Humalog 300 Units/3 Ml Vial SC 2 unit .BEDTIME SLIDING SC PRN Administration Bedtime Correctional Scale Mometasone Furoate/Formoterol Fumar 2 puff 04/28/20 18:30 05/04/20 07:40 Mometasone 200 Mcg/Formoterol 5 Mcg 120 Puff Inhaler INH 2 puff BID-RT KLAUDIA Administration Prednisone 40 mg 05/01/20 08:00 05/03/20 09:42 Prednisone 20 Mg Tab PO 40 mg QAM-WM KLAUDIA Administration - Exam General Appearance: awake alert Heart: RRR, no murmur, no gallops, no rubs Respiratory - other findings: Occasional bilateral wheezing. Gastrointestinal: soft, non-tender, non-distended, normal bowel sounds Extremities - other findings: EKG on left. Gangrenous fourth toe right. 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 She was on BiPAP however has not required BiPAP for the past couple of days. She is currently status post above-knee amputation on the left and doing well so far. Acute hypoxic respiratory failure Likely secondary to CHF exacerbation/COPD exacerbation Continue diuresis on Lasix Off BiPAP nowcontinue on oxygen by nasal cannula. Pulmonology on board. CHF exacerbation Significant improvement Continue diuresis COPD exacerbation Continue steroids and antibiotics PRN oxygen. Left below-knee stump wound Status post surgeryAKA Wound dressed and clean. Gangrene right fourth digit For possible surgery tomorrow Appreciate vascular/surgery input Carotid artery disease Status post stenting Continue on aspirin Cardiology following. Hyperkalemia Resolved Continue monitoring. BOBBY Improving Likely due to heart failure We will continue monitoring. BMP monitoring. Diabetes mellitus type II with peripheral neuropathy Blood sugar control improved A1c 6.5 Currently not dieting 30 units twice daily, correctional dosing Monitor insulin Hypertension Generally stable Continue blood pressure medications VT prophylaxisHeparin
[2020-05-04] MEDS: Famotidine 20 MG TAB PO SCH (14:11)
[2020-05-04] MEDS: Citalopram 20 MG TAB PO SCH (14:12)
[2020-05-04] MEDS: predniSONE 20 MG TAB PO SCH (14:12)
[2020-05-04 15:03] LABS: Glucose 130 mg/dL (80-115)
[2020-05-04 17:21] LABS: Glucose 148 mg/dL (80-115)
--- NOTE | 2020-05-04 17:31 | OP ---
DATE OF PROCEDURE: 05/04/2020 PREOPERATIVE DIAGNOSES: PAD, dehisced BKA stump, nonhealing, diabetic infection left foot. Just recovered from chronic obstructive pulmonary disease exacerbation. Needs interventional arteriography right leg for early gangrene, third toe, right. PROCEDURE PERFORMED: Left [id number] amputation. ANESTHESIA: General, regional. ESTIMATED BLOOD LOSS: 150 mL. BLOOD TRANSFUSIONS: None. Preoperative hemoglobin 10. DESCRIPTION OF PROCEDURE: The patient was taken to the operating room, where under general anesthesia, left lower extremity was prepared with ChloraPrep and draped in routine fashion. Left AKA performed with a fishmouth-type incision and carried down to skin and subcutaneous tissue circumferentially. Fascial layers divided old femoral-popliteal PTFE graft identified, it was thrombosed, divided between clamps along with the femoral artery and vein and ligated with 2-0 silk tie. Hemostasis was gained with cautery. Periosteum cleared proximally and femur transected with a Gigli saw, smoothed with a rasp. Wound irrigated. Good hemostasis noted. Fascia approximated with 2-0 Vicryl, skin with corrina. Sterile dressing applied. Job ID: [id number]
--- NOTE | 2020-05-04 18:12 | PRG ---
DATE OF SERVICE: 05/04/2020 Ms. Menendez is now status post revision of her left leg amputation today and is in good spirits and feeling well. She has gangrenous changes on the dorsum of her 2nd toe with black eschar. Plan at this time is for angiography of her right lower extremity tomorrow with percutaneous intervention if possible or anticipate at some point next week a right femoral to popliteal bypass. I have ultrasounded the vein in her right leg and it is probably suitable for a fem to behind the knee popliteal artery bypass if needed. I have reviewed her CTA from 2018 and I suspect based on the small size of her vessels and the extent of disease at that time, including diffuse SFA disease, probably SFA occlusion distally and tibial disease, percutaneous intervention is not likely to be beneficial or possible. I have discussed all this with her including the risks and complications of angiography. Creatinine has returned to her normal. BUN is slightly elevated at 30 and she is receiving normal saline at 50 mL an hour. Informed consent has been obtained for angios tomorrow. ADDENDUM: After reviewing the CT angiogram again, the patient has at least a 5 cm occlusion of the proximal to mid popliteal artery on her 2008 angiograms as well as a diffusely diseased superficial femoral artery. She has very small superficial and popliteal artery, and I think percutaneous intervention is unlikely to be successful. She does have palpable femoral pulses bilaterally. I am a bit concerned about sticking her left femoral artery due to very poor runoff in that leg and recent failed amputation that had to be revised, so I think I will plan on puncturing her right common femoral artery and doing a runoff study of her left leg assuming that surgical intervention will ultimately be required rather than percutaneous intervention and thereby avoiding the left common femoral artery with possible closure of this due to very poor runoff related to the puncture. Job ID: [id number]
[2020-05-04] MEDS: Atorvastatin Calcium 40 MG TAB PO SCH (21:13)
[2020-05-04] MEDS: Divalproex Sodium DR 500 MG TAB PO SCH (21:13)
[2020-05-04] MEDS: Amlodipine 5 MG TAB PO SCH (21:13)
[2020-05-04] MEDS: cefTRIAXone\\ROCEPHIN 2 GM in Sodium Chloride 0.9% 100 ML IVPB SCH (21:14)
[2020-05-04 21:33] LABS: Glucose 217 mg/dL (80-115)
[2020-05-05 03:29] LABS: #Basophils 0.1 thou/uL (0.0-0.2); #Monocytes 0.7 thou/uL (0.11-0.59); #Neutrophils 10.8 thou/uL (1.40-6.50); %Eosinophils 0.1 % (0.0-10.0); %Lymphocytes 14.7 % (21.0-51.0); %Monocytes 4.9 % (0.0-10.0); %Neutrophils 79.3 % (42.0-75.0); Hemoglobin 10.2 g/dL (12.0-16.0); Mean Corpuscular HGB CONC 31.3 g/dL (32.0-36.0); Mean Corpuscular Hemoglobin 29.1 pg (27.0-31.0); Mean Corpuscular Volume 93.1 fL (78.0-98.0); Mean Platelet Volume 7.9 fL (7.4-10.4); Platelet Count 287 thou/uL (130-400); RBC Distribution Width 16.1 % (11.5-14.5); Red Blood Cell (RBC) Count 3.52 mill/uL (4.20-5.40); White Blood Cell (WBC) Count 13.6 thou/uL (4.8-10.8)
[2020-05-05 03:48] LABS: ALT (SGPT) 10 U/L (8-55); AST (SGOT) 9 U/L (5-34); Albumin 2.9 g/dL (3.4-4.8); Alkaline Phosphatase 67 U/L (40-110); Anion Gap 13 mmol/L (10-20); BUN (Urea Nitrogen) 28 mg/dL (9.8-20.1); Bilirubin, Total 0.2 mg/dL (0.2-1.2); Calc. Creatinine Clearance 96 mL/min (70-130); Calcium 8.3 mg/dL (7.8-10.44); Carbon Dioxide 32 mmol/L (23-31); Chloride 98 mmol/L (98-107); Estimated GFR-MDRD 60; Globulin 2.4 g/dL (2.4-3.5); Glucose 208 mg/dL (80-115); Potassium 4.4 mmol/L (3.5-5.1); Protein, Total 5.3 g/dL (6.0-8.3); Sodium 139 mmol/L (136-145)
[2020-05-05] MEDS: Sodium Chloride 0.9% 1,000 ML IV SCH (04:06)
[2020-05-05] MEDS: Carvedilol 3.125 MG TAB PO SCH ×2 (05:18→21:09)
[2020-05-05] MEDS: Furosemide 40 MG/4 ML VIAL SLOW IVP SCH (05:18)
[2020-05-05] MEDS ORDERED: Lidocaine 1% (PF) 30 ML VIAL ONE (07:50)
[2020-05-05] MEDS: Budesonide 0.5 MG/2 ML NEB NEB SCH ×2 (07:57→18:18)
[2020-05-05] MEDS: Mometasone 200 MCG/Formoterol 5 MCG 120 PUFF INHALER INH SCH ×2 (07:58→18:19)
[2020-05-05 08:29] LABS: Glucose 184 mg/dL (80-115)
[2020-05-05] MEDS ORDERED: Iopamidol 370 76% 50 ML VIAL FS ONE (08:53)
[2020-05-05] MEDS: Heparin 5,000 UNITS/ML VIAL SC SCH ×3 (10:27→21:08)
[2020-05-05] MEDS: Insulin Glargine 30 UNITS in Pre-Filled Syringe 1 EACH SC SCH ×2 (10:53→21:10)
--- NOTE | 2020-05-05 12:06 | OP ---
DATE OF PROCEDURE: 05/05/2020 PREOPERATIVE DIAGNOSES: Gangrene of right second toe and status post failed amputation of left leg. PROCEDURE PERFORMED: Aortogram with bilateral lower extremity runoff with 40 mL of contrast and 1.5 minutes of fluoro time. FINDINGS: The patient had normal aortoiliac segments bilaterally. The left common femoral artery was severely subtotally occluded at the profunda and then the profunda was diffusely diseased. The SFA did not visualize. The right common femoral artery had about 40% diffuse disease with good-sized profunda vessels that had some distal disease. The right SFA was occluded at the origin and reconstituted at the adductor canal and then there was initial three-vessel runoff with small tibial vessels. No clear vessel went past the ankle. However, the patient had trouble holding still for evaluation of this. DESCRIPTION OF PROCEDURE: After prepping and draping, right groin was infiltrated with lidocaine. Ultrasound-guided puncture of the right common femoral artery was performed and a 4-Cymro catheter was placed. A 4-Cymro Contra was introduced into the distal aorta and runoffs of the left leg were obtained. Following this, Contra catheter was removed over a wire and runoff of the right leg was obtained following which the sheath was removed and pressure held. The patient tolerated the procedure well and may be a candidate for a right fem-pop above knee with vein. Job ID: [id number]
[2020-05-05 12:17] LABS: Glucose 161 mg/dL (80-115)
[2020-05-05] MEDS: Aspirin 81 mg Enteric Coated Tablet PO SCH (12:18)
[2020-05-05] MEDS: Citalopram 20 MG TAB PO SCH (12:18)
[2020-05-05] MEDS: predniSONE 20 MG TAB PO SCH (12:18)
[2020-05-05] MEDS: Acetaminophen 500 MG TAB PO PRN ×2 (12:18→21:09)
[2020-05-05] MEDS: Gabapentin 300 MG CAP PO SCH ×3 (12:19→21:10)
[2020-05-05] MEDS: Famotidine 20 MG TAB PO SCH ×2 (12:57→21:09)
--- NOTE | 2020-05-05 14:54 | PRG ---
DATE OF SERVICE: 05/05/2020 SUBJECTIVE: Nilda Menendez is doing well today. Hemoglobin is 10, white count 13. Basic metabolic profile normal. OBJECTIVE: LUNGS: Clear to auscultation. CARDIAC: Regular rhythm. No murmur or gallop. ABDOMEN: Soft, obese. EXTREMITIES: Left AKA wound dressing is dry. Dr. Greenberg performed a right leg arteriogram today. She probably has an endarterectomy of [id number] femoral-popliteal bypass graft. Dr. Segundo required to do this next week. ASSESSMENT AND PLAN: 1. Severe peripheral arterial disease with conversion below-knee amputation to above-knee amputation due to both peripheral arterial disease and wound dehiscence after multiple falls and ischemic muscle and exposed tibia. 2. Peripheral arterial disease. She will need a femoral-popliteal bypass of the right due to gangrene of the right toes. Dr. Segundo is to do this next week. 3. Status post amputation. She can go to rehab at some point. Whether she goes to rehab this week and returns for femoral-popliteal bypass next week or stays in the hospital is up to case folder and hospitalist. I will view her wound tomorrow. Job ID: [id number]
--- NOTE | 2020-05-05 15:38 | PDOC.HOSPP ---
- Subjective Encounter Date: 05/05/20 Encounter Time: 15:35 Subjective: Patient was seen and examined in bed. She is status post angiography and still in bed rest She denies any chest pain or worsening shortness of breath - Objective Vital Signs & Weight: Vital Signs (12 hours) Temp Pulse Resp Pulse Ox 05/05/20 14:43 70 22 H 97 05/05/20 11:10 97.6 F 05/05/20 10:45 76 17 98 05/05/20 07:50 97.5 F L Weight Admit Weight 221 lb Weight 218 lb 3.2 oz Most Recent Monitor Data Heart Rate from ECG 71 NIBP 112/60 NIBP BP-Mean 77 Respiration from ECG 16 SpO2 97 I&O: 05/04/20 05/05/20 05/06/20 06:59 06:59 06:59 Intake Total 2855 1320 Output Total 4050 4025 Balance -2639 -1747 Result Diagrams: 05/05/20 03:11 05/05/20 11:53 Additional Labs: Accuchecks 05/05/20 05/04/20 05:47 20:28 POC Glucose 190 H 200 H Hospitalist ROS - Medication Medications: Active Medications Generic Name Dose Route Start Last Admin Trade Name Freq PRN Reason Stop Dose Admin Acetaminophen 1,000 mg 04/27/20 21:39 05/05/20 12:18 Acetaminophen 500 Mg Tab PO 1,000 mg Q6H PRN Administration Mild Pain (1-3) Albuterol/Ipratropium 3 ml 04/28/20 11:00 05/05/20 14:43 Ipratropium/Albuterol Sulfate 3 Ml Neb NEB 3 ml [id number] KLAUDIA Administration Amlodipine Besylate 5 mg 04/30/20 21:00 05/04/20 21:13 Amlodipine 5 Mg Tab PO 5 mg HS KLAUDIA Administration Aspirin 81 mg 04/28/20 09:00 05/05/20 12:18 Aspirin 81 Mg Enteric Coated Tablet PO 81 mg DAILY KLAUDIA Administration Atorvastatin Calcium 40 mg 04/30/20 21:00 05/04/20 21:13 Atorvastatin Calcium 40 Mg Tab PO 40 mg HS KLAUDIA Administration Budesonide 0.5 mg 05/03/20 18:30 05/05/20 07:57 Budesonide 0.5 Mg/2 Ml Neb NEB Not Given BID-RT KLAUDIA Carvedilol 3.125 mg 04/29/20 21:00 05/05/20 05:18 Carvedilol 3.125 Mg Tab PO 3.125 mg BID KLAUDIA Administration Citalopram Hydrobromide 20 mg 04/28/20 09:00 05/05/20 12:18 Citalopram 20 Mg Tab PO 20 mg DAILY KLAUDIA Administration Divalproex Sodium 500 mg 04/28/20 21:00 05/04/20 21:[address] 500 Mg Tab PO 500 mg HS KLAUDIA Administration Gabapentin 300 mg 04/28/20 09:00 05/05/20 12:19 Gabapentin 300 Mg Cap PO 300 mg TID KLAUDIA Administration Heparin Sodium (Porcine) 5,000 units 04/28/20 09:00 05/05/20 10:27 Heparin 5,000 Units/Ml Vial SC Not Given TID KLAUDIA Ceftriaxone Sodium 2 gm/ 100 mls @ 200 mls/hr 04/27/20 22:00 05/04/20 21:14 Sodium Chloride IVPB 100 mls Q24HR KLAUDIA Administration Insulin Glargine 30 units/ 0.3 mls @ 0 mls/hr 04/29/20 11:23 05/05/20 10:53 Miscellaneous Medication SC Not Given BID KLAUDIA As Directed Insulin Human Lispro 0 units 04/27/20 21:39 05/03/20 17:12 Humalog 300 Units/3 Ml Vial SC 3 unit .MILD SLIDING SCALE PRN Administration Mild Correctional Scale Insulin Human Lispro 0 units 04/27/20 21:39 05/03/20 21:35 Humalog 300 Units/3 Ml Vial SC 2 unit .BEDTIME SLIDING SC PRN Administration Bedtime Correctional Scale Mometasone Furoate/Formoterol Fumar 2 puff 04/28/20 18:30 05/05/20 07:58 Mometasone 200 Mcg/Formoterol 5 Mcg 120 Puff Inhaler INH Not Given BID-RT KLAUDIA Prednisone 40 mg 05/01/20 08:00 05/05/20 12:18 Prednisone 20 Mg Tab PO 40 mg QAM-WM KLAUDIA Administration - Exam General Appearance: awake alert Eye: PERRL, anicteric sclera Heart: RRR, no murmur, no gallops, no rubs Respiratory - other findings: Bilateral occasional wheezing Gastrointestinal: soft, non-tender, non-distended, normal bowel sounds Extremities: no cyanosis, no clubbing, 1+ LE edema Extremities - other findings: AKA on left. 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 She was on BiPAP however has not required BiPAP for the past couple of days. She is currently status post above-knee amputation on the left and doing well so far. She was evaluated by cardiovascular surgery and ongoing plans for angioplasty of right lower. Patient was in CCU now in MICU. She will be transferred out today Acute hypoxic respiratory failure Likely secondary to CHF exacerbation/COPD exacerbation Continue diuresis on Lasix Off BiPAP nowcontinue on oxygen by nasal cannula. Pulmonology on board. CHF exacerbation Significant improvement Continue diuresis COPD exacerbation Continue steroids and antibiotics PRN oxygen. Left below-knee stump wound Status post surgeryAKA Wound dressed and clean. Gangrene right fourth digit Surgery evaluatedstatus post angiography Plan to do angioplasty Appreciate vascular/surgery input Carotid artery disease Status post stenting Continue on aspirin Cardiology following. Hyperkalemia Resolved Continue monitoring. BOBBY Improving Likely due to heart failure We will continue monitoring. BMP monitoring. Diabetes mellitus type II with peripheral neuropathy Blood sugar control improved A1c 6.5 Currently not dieting 30 units twice daily, correctional dosing Monitor insulin Hypertension Generally stable Continue blood pressure medications VT prophylaxisHeparin Dispositionshe will transfer out of MICU today.
[2020-05-05 17:48] LABS: Glucose 193 mg/dL (80-115)
[2020-05-05] MEDS: HumaLOG 300 UNITS/3 ML VIAL SC PRN ×2 (17:59→21:08)
[2020-05-05 21:05] LABS: Glucose 233 mg/dL (80-115)
[2020-05-05] MEDS: Atorvastatin Calcium 40 MG TAB PO SCH (21:09)
[2020-05-05] MEDS: Amlodipine 5 MG TAB PO SCH (21:09)
[2020-05-05] MEDS: Divalproex Sodium DR 500 MG TAB PO SCH (21:10)
[2020-05-05] MEDS: cefTRIAXone\\ROCEPHIN 2 GM in Sodium Chloride 0.9% 100 ML IVPB SCH (22:33)
[2020-05-06 07:25] LABS: Glucose 173 mg/dL (80-115)
[2020-05-06] MEDS: HumaLOG 300 UNITS/3 ML VIAL SC PRN ×2 (07:46→12:26)
[2020-05-06] MEDS: Famotidine 20 MG TAB PO SCH (09:20)
[2020-05-06] MEDS: Gabapentin 300 MG CAP PO SCH ×3 (09:21→21:35)
[2020-05-06] MEDS: Insulin Glargine 30 UNITS in Pre-Filled Syringe 1 EACH SC SCH (09:22)
[2020-05-06] MEDS: Heparin 5,000 UNITS/ML VIAL SC SCH ×3 (09:22→21:37)
[2020-05-06] MEDS: predniSONE 20 MG TAB PO SCH (09:23)
[2020-05-06] MEDS: Citalopram 20 MG TAB PO SCH (09:24)
[2020-05-06] MEDS: Carvedilol 3.125 MG TAB PO SCH ×2 (09:24→21:37)
[2020-05-06] MEDS: Aspirin 81 mg Enteric Coated Tablet PO SCH (09:24)
[2020-05-06] MEDS: Acetaminophen 500 MG TAB PO PRN (09:25)
[2020-05-06] MEDS: Budesonide 0.5 MG/2 ML NEB NEB SCH ×2 (10:30→18:54)
[2020-05-06] MEDS: Mometasone 200 MCG/Formoterol 5 MCG 120 PUFF INHALER INH SCH (10:40)
[2020-05-06 12:17] LABS: Glucose 267 mg/dL (80-115)
[2020-05-06] MEDS: HYDROcodone/Acetaminophen 10/325 mg Tablet PO PRN ×2 (12:25→19:13)
--- NOTE | 2020-05-06 15:08 | PRG ---
DATE OF SERVICE: 05/06/2020 Nilda Menendez is doing well today. Physical Therapy gotten her up into chair. She did remarkably well and pivoting assist post left AKA. She has some gangrenous foci on her right toes and Dr. Greenberg in Dr. Segundo absence performed an arteriography revealing need for femoral popliteal artery bypass graft above the knee. Dr. Segundo will be returning next week and perform that procedure. The patient is up in a chair and [facility] has placed a stump food safety technician with waist extension. When she is back in bed, the nurse will remove her left AKA dressing, begin daily washing the wound with soap and water. She can do this with a shower chair in the shower, pat the wound dry, place antibiotic ointment, Telfa and a stump food safety technician. I should see her in my office in 2 to 3 weeks to remove the corrina. Dr. Payne is covering this weekend. Please call if necessary. Job ID: [id number]
--- NOTE | 2020-05-06 15:09 | PDOC.HOSPP ---
- Subjective Encounter Date: 05/06/20 Encounter Time: 08:00 Subjective: No overnight events. this morning, feeling well and has no complaints. Denies chest pain, palpitations, dyspnea. - Objective Vital Signs & Weight: Vital Signs (12 hours) Temp Pulse Resp BP Pulse Ox 05/06/20 14:41 74 16 05/06/20 11:32 98.3 F 78 16 122/75 99 05/06/20 10:40 76 16 05/06/20 10:30 87 16 05/06/20 08:30 98 05/06/20 07:59 97.5 F L 79 16 139/77 98 05/06/20 03:30 97.7 F 72 18 128/81 100 Weight Admit Weight 221 lb Weight 200 lb 14.4 oz Most Recent Monitor Data Heart Rate from ECG 70 NIBP 113/71 NIBP BP-Mean 85 Respiration from ECG 15 SpO2 97 I&O: 05/05/20 05/06/20 05/07/20 06:59 06:59 06:59 Intake Total 1320 1493 480 Output Total 4025 2325 325 Balance -3645 -832 155 Result Diagrams: 05/05/20 03:11 05/06/20 11:36 Additional Labs: Accuchecks 05/05/20 16:39 POC Glucose 199 H Hospitalist ROS - Review of Systems Constitutional: denies: chills, sweats Respiratory: denies: cough, shortness of breath Cardiovascular: denies: chest pain, palpitations, orthopnea Gastrointestinal: denies: nausea, vomiting, abdominal pain - Medication Medications: Active Medications Generic Name Dose Route Start Last Admin Trade Name Freq PRN Reason Stop Dose Admin Acetaminophen 1,000 mg 04/27/20 21:39 05/06/20 09:25 Acetaminophen 500 Mg Tab PO 1,000 mg Q6H PRN Administration Mild Pain (1-3) Hydrocodone Bitart/Acetaminophen 2 tab 04/27/20 21:39 05/06/20 12:25 Hydrocodone/Acetaminophen 10/325 Mg Tablet PO 2 tab Q4H PRN Administration PAIN (4-6) Albuterol/Ipratropium 3 ml 04/28/20 11:00 05/06/20 14:41 Ipratropium/Albuterol Sulfate 3 Ml Neb NEB 3 ml [id number] KLAUDIA Administration Amlodipine Besylate 5 mg 04/30/20 21:00 05/05/20 21:09 Amlodipine 5 Mg Tab PO 5 mg HS KLAUDIA Administration Aspirin 81 mg 04/28/20 09:00 05/06/20 09:24 Aspirin 81 Mg Enteric Coated Tablet PO 81 mg DAILY KLAUDIA Administration Atorvastatin Calcium 40 mg 04/30/20 21:00 05/05/20 21:09 Atorvastatin Calcium 40 Mg Tab PO 40 mg HS KLAUDIA Administration Budesonide 0.5 mg 05/03/20 18:30 05/06/20 10:30 Budesonide 0.5 Mg/2 Ml Neb NEB 0.5 mg BID-RT KLAUDIA Administration Carvedilol 3.125 mg 04/29/20 21:00 05/06/20 09:24 Carvedilol 3.125 Mg Tab PO 3.125 mg BID KLAUDIA Administration Citalopram Hydrobromide 20 mg 04/28/20 09:00 05/06/20 09:24 Citalopram 20 Mg Tab PO 20 mg DAILY KLAUDIA Administration Divalproex Sodium 500 mg 04/28/20 21:00 05/05/20 21:[address] 500 Mg Tab PO 500 mg HS KLAUDIA Administration Famotidine 20 mg 05/05/20 21:00 05/06/20 09:20 Famotidine 20 Mg Tab PO 20 mg BID KLAUDIA Administration Gabapentin 300 mg 04/28/20 09:00 05/06/20 09:21 Gabapentin 300 Mg Cap PO 300 mg TID KLAUDIA Administration Heparin Sodium (Porcine) 5,000 units 04/28/20 09:00 05/06/20 09:22 Heparin 5,000 Units/Ml Vial SC 5,000 units TID KLAUDIA Administration Ceftriaxone Sodium 2 gm/ 100 mls @ 200 mls/hr 04/27/20 22:00 05/05/20 22:33 Sodium Chloride IVPB 100 mls Q24HR KLAUDIA Administration Insulin Glargine 30 units/ 0.3 mls @ 0 mls/hr 04/29/20 11:23 05/06/20 09:22 Miscellaneous Medication SC 0.3 mls BID KLAUDIA Administration As Directed Insulin Human Lispro 0 units 04/27/20 21:39 05/06/20 12:26 Humalog 300 Units/3 Ml Vial SC 4 unit .MILD SLIDING SCALE PRN Administration Mild Correctional Scale Insulin Human Lispro 0 units 04/27/20 21:39 05/05/20 21:08 Humalog 300 Units/3 Ml Vial SC 2 unit .BEDTIME SLIDING SC PRN Administration Bedtime Correctional Scale Mometasone Furoate/Formoterol Fumar 2 puff 04/28/20 18:30 05/06/20 10:40 Mometasone 200 Mcg/Formoterol 5 Mcg 120 Puff Inhaler INH 2 puff BID-RT KLAUDIA Administration Prednisone 40 mg 05/01/20 08:00 05/06/20 09:23 Prednisone 20 Mg Tab PO 40 mg QAM-WM KLAUDIA Administration - Exam General Appearance: NAD, awake alert Eye: PERRL ENT: normocephalic atraumatic, no oropharyngeal lesions Neck: no JVD Heart: RRR, no murmur, no gallops, no rubs Respiratory: CTAB, no wheezes, no rales, no ronchi Gastrointestinal: soft, non-tender, non-distended, normal bowel sounds Extremities - other findings: L AKA, RLE pitting edema, pretibial Psychiatric: normal affect, normal behavior, A&O x 3 Hosp A/P - Plan Acute hypoxic respiratory failure (resolved) on 3L NC; baseline is 2L NC CHF exacerbation Significant improvement Continue diuresis COPD exacerbation Continue steroids and antibiotics PRN oxygen. Diabetes mellitus type II with peripheral neuropathy poorly controlled; changed insulin regimen based on correction; moderate correction based on insulin resistance Left AKA stump wound Status post surgeryAKA Wound dressed and clean. Gangrene right fourth digit Surgery evaluatedstatus post angiography POD 1 s/p angioplasty; Appreciate vascular/surgery input Carotid artery disease Status post stenting Continue on aspirin Cardiology following. Hypertension within goal Continue blood pressure medications VT prophylaxisHeparin Full code ELOS: 2 nights
[2020-05-06 17:24] LABS: Glucose 281 mg/dL (80-115)
[2020-05-06] MEDS: Bacitracin Zinc Ointment 30 gm TUBE TOP PRN (17:30)
[2020-05-06] MEDS: HumaLOG 300 UNITS/3 ML VIAL SC SCH (17:31)
[2020-05-06 21:08] LABS: Glucose 309 mg/dL (80-115)
[2020-05-06] MEDS: Senokot S 8.6-50 MG TAB PO SCH (21:34)
[2020-05-06] MEDS: Insulin Glargine 35 UNITS in Pre-Filled Syringe 1 EACH SC SCH (21:34)
[2020-05-06] MEDS: Atorvastatin Calcium 40 MG TAB PO SCH (21:35)
[2020-05-06] MEDS: Amlodipine 5 MG TAB PO SCH (21:35)
[2020-05-06] MEDS: Divalproex Sodium DR 500 MG TAB PO SCH (21:37)
[2020-05-06] MEDS: cefTRIAXone\\ROCEPHIN 2 GM in Sodium Chloride 0.9% 100 ML IVPB SCH (23:06)
[2020-05-07] MEDS: Mometasone 200 MCG/Formoterol 5 MCG 120 PUFF INHALER INH SCH ×3 (02:32→19:11)
[2020-05-07] MEDS: Budesonide 0.5 MG/2 ML NEB NEB SCH ×2 (06:35→18:54)
[2020-05-07 07:51] LABS: Glucose 121 mg/dL (80-115)
[2020-05-07] MEDS: HumaLOG 300 UNITS/3 ML VIAL SC SCH ×3 (08:54→18:32)
[2020-05-07] MEDS: Senokot S 8.6-50 MG TAB PO SCH ×2 (08:56→20:42)
[2020-05-07] MEDS: HYDROcodone/Acetaminophen 10/325 mg Tablet PO PRN ×3 (08:57→17:12)
[2020-05-07] MEDS: Citalopram 20 MG TAB PO SCH (08:57)
[2020-05-07] MEDS: predniSONE 20 MG TAB PO SCH (08:57)
[2020-05-07] MEDS: Gabapentin 300 MG CAP PO SCH ×3 (08:57→20:42)
[2020-05-07] MEDS: Aspirin 81 mg Enteric Coated Tablet PO SCH (08:57)
[2020-05-07] MEDS: Polyethylene Glycol 3350 17 GM Packet PO SCH (08:59)
[2020-05-07] MEDS: Heparin 5,000 UNITS/ML VIAL SC SCH ×3 (09:00→20:43)
[2020-05-07] MEDS: Carvedilol 3.125 MG TAB PO SCH ×2 (09:00→20:42)
[2020-05-07 12:52] LABS: Glucose 63 mg/dL (80-115)
--- NOTE | 2020-05-07 15:15 | PDOC.HOSPP ---
- Subjective Encounter Date: 05/07/20 Encounter Time: 09:30 Subjective: She is having her meals she has no acute complaints. Surgery signed off. - Objective Vital Signs & Weight: Vital Signs (12 hours) Temp Pulse Resp BP Pulse Ox 05/07/20 14:24 79 14 97 05/07/20 11:16 97.9 F 69 16 113/74 100 05/07/20 07:41 97.9 F 71 16 112/71 99 05/07/20 06:33 71 14 95 Weight Admit Weight 221 lb Weight 200 lb 9.6 oz Most Recent Monitor Data Heart Rate from ECG 70 NIBP 113/71 NIBP BP-Mean 85 Respiration from ECG 15 SpO2 97 I&O: 05/06/20 05/07/20 05/08/20 06:59 06:59 06:59 Intake Total 1493 920 Output Total 2325 1000 Balance -832 -80 Result Diagrams: 05/05/20 03:11 05/07/20 12:05 Hospitalist ROS - Medication Medications: Active Medications Generic Name Dose Route Start Last Admin Trade Name Freq PRN Reason Stop Dose Admin Acetaminophen 1,000 mg 04/27/20 21:39 05/06/20 09:25 Acetaminophen 500 Mg Tab PO 1,000 mg Q6H PRN Administration Mild Pain (1-3) Hydrocodone Bitart/Acetaminophen 2 tab 04/27/20 21:39 05/07/20 12:20 Hydrocodone/Acetaminophen 10/325 Mg Tablet PO 2 tab Q4H PRN Administration PAIN (4-6) Albuterol/Ipratropium 3 ml 04/28/20 11:00 05/07/20 14:24 Ipratropium/Albuterol Sulfate 3 Ml Neb NEB 3 ml [id number] KLAUDIA Administration Amlodipine Besylate 5 mg 04/30/20 21:00 05/06/20 21:35 Amlodipine 5 Mg Tab PO 5 mg HS KLAUDIA Administration Aspirin 81 mg 04/28/20 09:00 05/07/20 08:57 Aspirin 81 Mg Enteric Coated Tablet PO 81 mg DAILY KLAUDIA Administration Atorvastatin Calcium 40 mg 04/30/20 21:00 05/06/20 21:35 Atorvastatin Calcium 40 Mg Tab PO 40 mg HS KLAUDIA Administration Bacitracin Zinc 0 gm 05/06/20 16:50 05/06/20 17:30 Bacitracin Zinc Ointment 30 Gm Tube TOP 1 applic PRN PRN Administration DRESSING CHANGE Budesonide 0.5 mg 05/03/20 18:30 05/07/20 06:35 Budesonide 0.5 Mg/2 Ml Neb NEB 0.5 mg BID-RT KLAUDIA Administration Carvedilol 3.125 mg 04/29/20 21:00 05/07/20 09:00 Carvedilol 3.125 Mg Tab PO 3.125 mg BID KLAUDIA Administration Citalopram Hydrobromide 20 mg 04/28/20 09:00 05/07/20 08:57 Citalopram 20 Mg Tab PO 20 mg DAILY KLAUDIA Administration Divalproex Sodium 500 mg 04/28/20 21:00 05/06/20 21:[address] 500 Mg Tab PO 500 mg HS KLAUDIA Administration Gabapentin 300 mg 04/28/20 09:00 05/07/20 08:57 Gabapentin 300 Mg Cap PO 300 mg TID KLAUDIA Administration Heparin Sodium (Porcine) 5,000 units 04/28/20 09:00 05/07/20 09:00 Heparin 5,000 Units/Ml Vial SC 5,000 units TID KLAUDIA Administration Ceftriaxone Sodium 2 gm/ 100 mls @ 200 mls/hr 04/27/20 22:00 05/06/20 23:06 Sodium Chloride IVPB 100 mls Q24HR KLAUDIA Administration Insulin Glargine 35 units/ 0.35 mls @ 0 mls/hr 05/06/20 21:00 05/06/20 21:34 Miscellaneous Medication SC 0.35 mls HS KLAUDIA Administration As Directed Insulin Human Lispro 0 units 04/27/20 21:39 05/05/20 21:08 Humalog 300 Units/3 Ml Vial SC 2 unit .BEDTIME SLIDING SC PRN Administration Bedtime Correctional Scale Insulin Human Lispro 12 units 05/06/20 17:00 05/07/20 13:13 Humalog 300 Units/3 Ml Vial SC Not Given TID-WM KLAUDIA Mometasone Furoate/Formoterol Fumar 2 puff 04/28/20 18:30 05/07/20 06:35 Mometasone 200 Mcg/Formoterol 5 Mcg 120 Puff Inhaler INH 2 puff BID-RT KLAUDIA Administration Polyethylene Glycol 17 gm 05/07/20 09:00 05/07/20 08:59 Polyethylene Glycol 3350 17 Gm Packet PO 17 gm DAILY KLAUDIA Administration Prednisone 40 mg 05/01/20 08:00 05/07/20 08:57 Prednisone 20 Mg Tab PO 40 mg QAM-WM KLAUDIA Administration Senna/Docusate Sodium 1 tab 05/06/20 21:00 05/07/20 08:56 Senokot S 8.6-50 Mg Tab PO 1 tab BID KLAUDIA Administration - Exam General Appearance: NAD, awake alert Eye: PERRL ENT: normocephalic atraumatic Neck: supple Heart: RRR Respiratory: CTAB Gastrointestinal: soft, normal bowel sounds Extremities - other findings: Left above-knee amputation Neurological: no new deficit Psychiatric: normal affect, normal behavior, A&O x 3 Hosp A/P - Plan Acute hypoxic respiratory failure (resolved) CHF exacerbation Continue diuresis----------------------->Po -Creatinine 0.94 few days ago. COPD exacerbation Continue steroids and antibiotics -Given the surgery we should still keep her off the steroid also difficult to control the blood glucose if she is on steroid. -She is clinically better will take her off the prednisone. -IV antibiotics changed to Augmentin. PRN oxygen. Diabetes mellitus type II with peripheral neuropathy Sliding scale insulin -Low-dose scheduled insulin -A1c 6.5 -Given the surgery the goal is to keep the blood glucose below 180. Some of the readings ranged after 309. Left AKA stump wound Status post surgeryAKA Wound dressed and clean. Gangrene right fourth digit Surgery evaluatedstatus post angiography POD 1 s/p angioplasty; Appreciate vascular/surgery input Carotid artery disease Status post stenting Continue on aspirin Hypertension within goal Continue blood pressure medications VT prophylaxisHeparin
[2020-05-07 18:01] LABS: Glucose 242 mg/dL (80-115)
[2020-05-07] MEDS: HumaLOG 300 UNITS/3 ML VIAL SC PRN (18:39)
[2020-05-07 20:35] LABS: Glucose 267 mg/dL (80-115)
[2020-05-07] MEDS: Insulin Glargine 35 UNITS in Pre-Filled Syringe 1 EACH SC SCH (20:41)
[2020-05-07] MEDS: Amlodipine 5 MG TAB PO SCH (20:42)
[2020-05-07] MEDS: Amoxicillin/Potassium Clav 875 MG TAB PO SCH (20:42)
[2020-05-07] MEDS: Atorvastatin Calcium 40 MG TAB PO SCH (20:42)
[2020-05-07] MEDS: Divalproex Sodium DR 500 MG TAB PO SCH (20:43)
[2020-05-08 06:33] LABS: #Basophils 0.1 thou/uL (0.0-0.2); #Eosinphils 0.1 thou/uL (0.0-0.7); #Lymphocytes 2.4 thou/uL (1.20-3.40); #Monocytes 0.6 thou/uL (0.11-0.59); #Neutrophils 8.4 thou/uL (1.40-6.50); %Basophils 0.8 % (0.0-1.0); %Eosinophils 0.6 % (0.0-10.0); %Lymphocytes 20.9 % (21.0-51.0); %Monocytes 5.3 % (0.0-10.0); %Neutrophils 72.4 % (42.0-75.0); Hemoglobin 10.4 g/dL (12.0-16.0); Mean Corpuscular HGB CONC 30.5 g/dL (32.0-36.0); Mean Platelet Volume 10.2 fL (7.4-10.4); Platelet Count 232 thou/uL (130-400); RBC Distribution Width 16.3 % (11.5-14.5); Red Blood Cell (RBC) Count 3.59 mill/uL (4.20-5.40); White Blood Cell (WBC) Count 11.6 thou/uL (4.8-10.8)
[2020-05-08] MEDS: Budesonide 0.5 MG/2 ML NEB NEB SCH ×2 (06:41→19:06)
[2020-05-08] MEDS: Mometasone 200 MCG/Formoterol 5 MCG 120 PUFF INHALER INH SCH ×2 (06:44→19:04)
[2020-05-08 06:53] LABS: Anion Gap 16 mmol/L (10-20); BUN (Urea Nitrogen) 36 mg/dL (9.8-20.1); Calc. Creatinine Clearance 88 mL/min (70-130); Calcium 8.4 mg/dL (7.8-10.44); Carbon Dioxide 25 mmol/L (23-31); Chloride 101 mmol/L (98-107); Estimated GFR-MDRD 60; Glucose 183 mg/dL (80-115); Potassium 5.5 mmol/L (3.5-5.1); Sodium 136 mmol/L (136-145)
[2020-05-08] MEDS: HumaLOG 300 UNITS/3 ML VIAL SC PRN ×2 (07:04→13:02)
[2020-05-08 08:06] LABS: Glucose 170 mg/dL (80-115)
[2020-05-08] MEDS: HumaLOG 300 UNITS/3 ML VIAL SC SCH ×3 (08:11→17:41)
[2020-05-08] MEDS: Amoxicillin/Potassium Clav 875 MG TAB PO SCH ×2 (10:35→20:40)
[2020-05-08] MEDS: Gabapentin 300 MG CAP PO SCH ×3 (10:35→20:40)
[2020-05-08] MEDS: Citalopram 20 MG TAB PO SCH (10:35)
[2020-05-08] MEDS: Senokot S 8.6-50 MG TAB PO SCH ×2 (10:36→20:40)
[2020-05-08] MEDS: Aspirin 81 mg Enteric Coated Tablet PO SCH (10:36)
[2020-05-08] MEDS: HYDROcodone/Acetaminophen 10/325 mg Tablet PO PRN ×2 (10:36→17:42)
[2020-05-08] MEDS: Carvedilol 3.125 MG TAB PO SCH ×2 (10:36→22:35)
[2020-05-08] MEDS: Heparin 5,000 UNITS/ML VIAL SC SCH ×3 (10:37→20:40)
[2020-05-08] MEDS: Polyethylene Glycol 3350 17 GM Packet PO SCH (10:44)
[2020-05-08 12:14] LABS: Glucose 223 mg/dL (80-115)
--- NOTE | 2020-05-08 13:23 | PDOC.HOSPP ---
- Subjective Encounter Date: 05/08/20 Encounter Time: 10:30 Subjective: Patient is sitting. Her potassium level is 5.5. She is not on any potassium supplement including Spironolactone. Will give her Kayexalate and follow-up on the potassium level. Next week vascular surgery evaluation. Patient is aware of the care plan. - Objective Vital Signs & Weight: Vital Signs (12 hours) Temp Pulse Resp BP Pulse Ox 05/08/20 11:14 98.5 F 72 16 106/69 92 L 05/08/20 10:04 71 14 96 05/08/20 07:38 98.4 F 74 16 119/64 97 05/08/20 06:41 75 14 97 05/08/20 04:15 98.7 F 78 16 138/86 96 Weight Admit Weight 221 lb Weight 198 lb 8 oz Most Recent Monitor Data Heart Rate from ECG 70 NIBP 113/71 NIBP BP-Mean 85 Respiration from ECG 15 SpO2 97 I&O: 05/07/20 05/08/20 05/09/20 06:59 06:59 06:59 Intake Total 920 1200 Output Total 1000 1400 Balance -80 -200 Result Diagrams: 05/08/20 05:40 05/08/20 11:40 Hospitalist ROS - Medication Medications: Active Medications Generic Name Dose Route Start Last Admin Trade Name Freq PRN Reason Stop Dose Admin Acetaminophen 1,000 mg 04/27/20 21:39 05/06/20 09:25 Acetaminophen 500 Mg Tab PO 1,000 mg Q6H PRN Administration Mild Pain (1-3) Hydrocodone Bitart/Acetaminophen 2 tab 05/08/20 10:22 05/08/20 10:36 Hydrocodone/Acetaminophen 10/325 Mg Tablet PO 2 tab Q4H PRN Administration PAIN (4-6) Albuterol/Ipratropium 3 ml 04/28/20 11:00 05/08/20 10:04 Ipratropium/Albuterol Sulfate 3 Ml Neb NEB 3 ml [id number] KLAUDIA Administration Amlodipine Besylate 5 mg 04/30/20 21:00 05/07/20 20:42 Amlodipine 5 Mg Tab PO 5 mg HS KLAUDIA Administration Amoxicillin/Clavulanate Potassium 875 mg 05/07/20 21:00 05/08/20 10:35 Amoxicillin/Potassium Clav 875 Mg Tab PO 05/12/20 21:01 875 mg Q12HR KLAUDIA Administration Aspirin 81 mg 04/28/20 09:00 05/08/20 10:36 Aspirin 81 Mg Enteric Coated Tablet PO 81 mg DAILY KLAUDIA Administration Atorvastatin Calcium 40 mg 04/30/20 21:00 05/07/20 20:42 Atorvastatin Calcium 40 Mg Tab PO 40 mg HS KLAUDIA Administration Bacitracin Zinc 0 gm 05/06/20 16:50 05/06/20 17:30 Bacitracin Zinc Ointment 30 Gm Tube TOP 1 applic PRN PRN Administration DRESSING CHANGE Budesonide 0.5 mg 05/03/20 18:30 05/08/20 06:41 Budesonide 0.5 Mg/2 Ml Neb NEB 0.5 mg BID-RT KLAUDIA Administration Carvedilol 3.125 mg 04/29/20 21:00 05/08/20 10:36 Carvedilol 3.125 Mg Tab PO 3.125 mg BID KLAUDIA Administration Citalopram Hydrobromide 20 mg 04/28/20 09:00 05/08/20 10:35 Citalopram 20 Mg Tab PO 20 mg DAILY KLAUDIA Administration Divalproex Sodium 500 mg 04/28/20 21:00 05/07/20 20:[address] 500 Mg Tab PO 500 mg HS KLAUDIA Administration Gabapentin 300 mg 04/28/20 09:00 05/08/20 10:35 Gabapentin 300 Mg Cap PO 300 mg TID KLAUDIA Administration Heparin Sodium (Porcine) 5,000 units 04/28/20 09:00 05/08/20 10:37 Heparin 5,000 Units/Ml Vial SC 5,000 units TID KLAUDIA Administration Insulin Glargine 35 units/ 0.35 mls @ 0 mls/hr 05/06/20 21:00 05/07/20 20:41 Miscellaneous Medication SC 0.35 mls HS KLAUDIA Administration As Directed Insulin Human Lispro 0 units 04/27/20 21:39 05/05/20 21:08 Humalog 300 Units/3 Ml Vial SC 2 unit .BEDTIME SLIDING SC PRN Administration Bedtime Correctional Scale Insulin Human Lispro 12 units 05/06/20 17:00 05/08/20 13:03 Humalog 300 Units/3 Ml Vial SC Not Given TID-WM KLAUDIA Insulin Human Lispro 0 units 05/08/20 11:15 05/08/20 13:02 Humalog 300 Units/3 Ml Vial SC 3 units .MILD SLIDING SCALE PRN Administration MILD SLIDING SCALE Protocol Mometasone Furoate/Formoterol Fumar 2 puff 04/28/20 18:30 05/08/20 06:44 Mometasone 200 Mcg/Formoterol 5 Mcg 120 Puff Inhaler INH 2 puff BID-RT KLAUDIA Administration Polyethylene Glycol 17 gm 05/07/20 09:00 05/08/20 10:44 Polyethylene Glycol 3350 17 Gm Packet PO 17 gm DAILY KLAUDIA Administration Senna/Docusate Sodium 1 tab 05/06/20 21:00 05/08/20 10:36 Senokot S 8.6-50 Mg Tab PO 1 tab BID KLAUDIA Administration - Exam General Appearance: NAD, awake alert Eye: PERRL ENT: normocephalic atraumatic Neck: supple Heart: RRR Respiratory: CTAB Gastrointestinal: soft, normal bowel sounds Extremities - other findings: Left above-knee amputation right fourth toe gangrene. Psychiatric: A&O x 3 Hosp A/P - Plan Acute hypoxic respiratory failure (resolved) CHF exacerbation Continue diuresis----------------------->Po -Creatinine 0.94 few days ago. COPD exacerbation Continue steroids and antibiotics -Given the surgery we should still keep her off the steroid also difficult to control the blood glucose if she is on steroid. -She is clinically better will take her off the prednisone. -IV antibiotics changed to Augmentin. PRN oxygen. Diabetes mellitus type II with peripheral neuropathy Sliding scale insulin -A1c 6.5 -Given the surgery the goal is to keep the blood glucose below 180. Some of the readings ranged after 309. -Treat with oral hypoglycemic drug but we are going to wait until surgery is completed. Carotid artery disease -Status post stenting Continue on aspirin Left AKA stump wound Status post surgeryAKA Wound dressed and clean. Gangrene right fourth digit - s/p angioplasty; - She probably need a femoral to popliteal artery bypass graft about the knee -Likely to be performed by next week. - Appreciate vascular/surgery input Hypertension within goal Continue blood pressure medications VT prophylaxisHeparin
[2020-05-08 15:16] LABS: Potassium 5.3 mmol/L (3.5-5.1)
[2020-05-08 17:24] LABS: Glucose 128 mg/dL (80-115)
[2020-05-08] MEDS: Divalproex Sodium DR 500 MG TAB PO SCH (20:39)
[2020-05-08] MEDS: Atorvastatin Calcium 40 MG TAB PO SCH (20:40)
[2020-05-08 21:40] LABS: Glucose 120 mg/dL (80-115)
[2020-05-08] MEDS: Amlodipine 5 MG TAB PO SCH (22:33)
[2020-05-08] MEDS: Insulin Glargine 35 UNITS in Pre-Filled Syringe 1 EACH SC SCH (22:38)
[2020-05-09 05:21] LABS: #Basophils 0.1 thou/uL (0.0-0.2); #Eosinphils 0.3 thou/uL (0.0-0.7); #Lymphocytes 4.6 thou/uL (1.20-3.40); #Monocytes 0.8 thou/uL (0.11-0.59); #Neutrophils 4.9 thou/uL (1.40-6.50); %Basophils 1.1 % (0.0-1.0); %Eosinophils 2.6 % (0.0-10.0); %Monocytes 7.1 % (0.0-10.0); %Neutrophils 46.3 % (42.0-75.0); Hemoglobin 9.6 g/dL (12.0-16.0); Mean Corpuscular HGB CONC 31.2 g/dL (32.0-36.0); Mean Corpuscular Hemoglobin 29.6 pg (27.0-31.0); Mean Corpuscular Volume 94.8 fL (78.0-98.0); Mean Platelet Volume 8.6 fL (7.4-10.4); Platelet Count 253 thou/uL (130-400); RBC Distribution Width 16.3 % (11.5-14.5); Red Blood Cell (RBC) Count 3.25 mill/uL (4.20-5.40); White Blood Cell (WBC) Count 10.6 thou/uL (4.8-10.8)
[2020-05-09] MEDS: Budesonide 0.5 MG/2 ML NEB NEB SCH ×2 (05:57→19:58)
[2020-05-09 05:59] LABS: Anion Gap 12 mmol/L (10-20); BUN (Urea Nitrogen) 42 mg/dL (9.8-20.1); Calc. Creatinine Clearance 83 mL/min (70-130); Calcium 8.2 mg/dL (7.8-10.44); Carbon Dioxide 32 mmol/L (23-31); Chloride 102 mmol/L (98-107); Estimated GFR-MDRD 57; Glucose 80 mg/dL (80-115); Potassium 4.4 mmol/L (3.5-5.1); Sodium 142 mmol/L (136-145)
[2020-05-09] MEDS: Mometasone 200 MCG/Formoterol 5 MCG 120 PUFF INHALER INH SCH ×2 (07:07→19:56)
[2020-05-09] MEDS: HumaLOG 300 UNITS/3 ML VIAL SC SCH ×3 (08:11→18:04)
[2020-05-09] MEDS: Polyethylene Glycol 3350 17 GM Packet PO SCH (08:12)
[2020-05-09] MEDS: Carvedilol 3.125 MG TAB PO SCH ×2 (08:12→20:50)
[2020-05-09] MEDS: Senokot S 8.6-50 MG TAB PO SCH ×2 (08:12→20:50)
[2020-05-09] MEDS: Amoxicillin/Potassium Clav 875 MG TAB PO SCH ×2 (08:12→20:51)
[2020-05-09] MEDS: Aspirin 81 mg Enteric Coated Tablet PO SCH (08:12)
[2020-05-09] MEDS: Citalopram 20 MG TAB PO SCH (08:12)
[2020-05-09] MEDS: Gabapentin 300 MG CAP PO SCH ×3 (08:13→20:50)
[2020-05-09] MEDS: Heparin 5,000 UNITS/ML VIAL SC SCH ×3 (08:13→21:52)
[2020-05-09 08:17] LABS: Glucose 80 mg/dL (80-115)
[2020-05-09] MEDS: HYDROcodone/Acetaminophen 10/325 mg Tablet PO PRN ×2 (08:18→18:48)
--- NOTE | 2020-05-09 11:21 | PRG ---
DATE OF SERVICE: 05/09/2020 SUBJECTIVE: A 65-year-old female, who is going to go to surgery tomorrow regarding her BK amputation leg. OBJECTIVE: VITAL SIGNS: Temperature 98, pulse 80, respirations 16, saturations 95% on 2 L, and blood pressure 130/81. CHEST: No wheezing. No crackles. CARDIAC: Normal S1 and S2. No gallops. ABDOMEN: No masses. ASSESSMENT: Chronic obstructive pulmonary disease, stable and peripheral vascular disease. PLAN: We will watch her postop. Otherwise, continue PT, supportive care. Job ID: [id number]
[2020-05-09 11:37] LABS: Glucose 101 mg/dL (80-115)
--- NOTE | 2020-05-09 12:25 | PDOC.HOSPP ---
- Subjective Encounter Date: 05/09/20 Encounter Time: 10:50 Subjective: She is having her meals. She has no acute issues today. It appears that she will be going for surgery tomorrow morning. We will keep her n.p.o. tonight. - Objective Vital Signs & Weight: Vital Signs (12 hours) Temp Pulse Resp BP Pulse Ox 05/09/20 11:22 98.9 F 18 141/73 H 95 05/09/20 08:15 94 L 05/09/20 07:56 98.4 F 80 16 130/81 94 L 05/09/20 06:18 97.8 F 79 18 123/65 99 05/09/20 05:57 98 05/09/20 05:56 98 Weight Admit Weight 221 lb Weight 209 lb 4.8 oz Most Recent Monitor Data Heart Rate from ECG 70 NIBP 113/71 NIBP BP-Mean 85 Respiration from ECG 15 SpO2 97 I&O: 05/08/20 05/09/20 05/10/20 06:59 06:59 06:59 Intake Total 1200 1560 Output Total 1400 1620 Balance -200 -60 Result Diagrams: 05/09/20 05:04 05/09/20 10:52 Additional Labs: Accuchecks 05/09/20 11:24 POC Glucose 94 Hospitalist ROS - Medication Medications: Active Medications Generic Name Dose Route Start Last Admin Trade Name Freq PRN Reason Stop Dose Admin Acetaminophen 1,000 mg 04/27/20 21:39 05/06/20 09:25 Acetaminophen 500 Mg Tab PO 1,000 mg Q6H PRN Administration Mild Pain (1-3) Hydrocodone Bitart/Acetaminophen 2 tab 05/08/20 10:22 05/09/20 08:18 Hydrocodone/Acetaminophen 10/325 Mg Tablet PO 2 tab Q4H PRN Administration PAIN (4-6) Albuterol/Ipratropium 3 ml 04/28/20 11:00 05/09/20 05:56 Ipratropium/Albuterol Sulfate 3 Ml Neb NEB 3 ml [id number] KLAUDIA Administration Amlodipine Besylate 5 mg 04/30/20 21:00 05/08/20 22:33 Amlodipine 5 Mg Tab PO Not Given HS KLAUDIA Amoxicillin/Clavulanate Potassium 875 mg 05/07/20 21:00 05/09/20 08:12 Amoxicillin/Potassium Clav 875 Mg Tab PO 05/12/20 21:01 875 mg Q12HR KLAUDIA Administration Aspirin 81 mg 04/28/20 09:00 05/09/20 08:12 Aspirin 81 Mg Enteric Coated Tablet PO 81 mg DAILY KLAUDIA Administration Atorvastatin Calcium 40 mg 04/30/20 21:00 05/08/20 20:40 Atorvastatin Calcium 40 Mg Tab PO 40 mg HS KLAUDIA Administration Bacitracin Zinc 0 gm 05/06/20 16:50 05/06/20 17:30 Bacitracin Zinc Ointment 30 Gm Tube TOP 1 applic PRN PRN Administration DRESSING CHANGE Budesonide 0.5 mg 05/03/20 18:30 05/09/20 05:57 Budesonide 0.5 Mg/2 Ml Neb NEB 0.5 mg BID-RT KLAUDIA Administration Carvedilol 3.125 mg 04/29/20 21:00 05/09/20 08:12 Carvedilol 3.125 Mg Tab PO 3.125 mg BID KLAUDIA Administration Citalopram Hydrobromide 20 mg 04/28/20 09:00 05/09/20 08:12 Citalopram 20 Mg Tab PO 20 mg DAILY KLAUDIA Administration Divalproex Sodium 500 mg 04/28/20 21:00 05/08/20 20:[address] 500 Mg Tab PO 500 mg HS KLAUDIA Administration Gabapentin 300 mg 04/28/20 09:00 05/09/20 08:13 Gabapentin 300 Mg Cap PO 300 mg TID KLAUDIA Administration Heparin Sodium (Porcine) 5,000 units 04/28/20 09:00 05/09/20 08:13 Heparin 5,000 Units/Ml Vial SC 5,000 units TID KLAUDIA Administration Insulin Glargine 35 units/ 0.35 mls @ 0 mls/hr 05/06/20 21:00 05/08/20 22:38 Miscellaneous Medication SC Not Given HS KLAUDIA As Directed Insulin Human Lispro 0 units 04/27/20 21:39 05/05/20 21:08 Humalog 300 Units/3 Ml Vial SC 2 unit .BEDTIME SLIDING SC PRN Administration Bedtime Correctional Scale Insulin Human Lispro 12 units 05/06/20 17:00 05/09/20 11:50 Humalog 300 Units/3 Ml Vial SC Not Given TID-WM KLAUDIA Insulin Human Lispro 0 units 05/08/20 11:15 05/08/20 13:02 Humalog 300 Units/3 Ml Vial SC 3 units .MILD SLIDING SCALE PRN Administration MILD SLIDING SCALE Protocol Mometasone Furoate/Formoterol Fumar 2 puff 04/28/20 18:30 05/09/20 07:07 Mometasone 200 Mcg/Formoterol 5 Mcg 120 Puff Inhaler INH 2 puff BID-RT KLAUDIA Administration Polyethylene Glycol 17 gm 05/07/20 09:00 05/09/20 08:12 Polyethylene Glycol 3350 17 Gm Packet PO 17 gm DAILY KLAUDIA Administration Senna/Docusate Sodium 1 tab 05/06/20 21:00 05/09/20 08:12 Senokot S 8.6-50 Mg Tab PO 1 tab BID KLAUDIA Administration Sodium Chloride 10 ml 05/08/20 21:00 05/09/20 08:13 Flush - Normal Saline 10 Ml Syringe IVF 10 ml Q12HR KLAUDIA Administration Sodium Polystyrene Sulfonate 30 gm 05/08/20 21:00 05/09/20 08:19 Sodium Polystyrene Sulfonate 15 Gm/60 Ml Bot PO 05/09/20 18:00 30 gm BID KLAUDIA Administration - Exam General Appearance: NAD, awake alert Eye: PERRL ENT: normocephalic atraumatic Neck: supple Heart: RRR, normal peripheral pulses Respiratory: CTAB, normal chest expansion Gastrointestinal: soft, normal bowel sounds Psychiatric: normal affect, normal behavior, A&O x 3 Hosp A/P - Plan Acute hypoxic respiratory failure (resolved) CHF exacerbation Continue diuresis----------------------->Po -Creatinine 0.94 few days ago. COPD exacerbation Continue steroids and antibiotics -Given the surgery we should still keep her off the steroid also difficult to control the blood glucose if she is on steroid. -She is clinically better will take her off the prednisone. -IV antibiotics changed to Augmentin. PRN oxygen. Diabetes mellitus type II with peripheral neuropathy Sliding scale insulin -A1c 6.5 -Given the surgery the goal is to keep the blood glucose below 180. Some of the readings ranged after 309. -Treat with oral hypoglycemic drug but we are going to wait until surgery is completed. Carotid artery disease -Status post stenting Continue on aspirin Left AKA stump wound Status post surgeryAKA Wound dressed and clean. Gangrene right fourth digit - s/p angioplasty; - She probably need a femoral to popliteal artery bypass graft -Likely to be performed by next week. - Appreciate vascular/surgery input Hypertension within goal Continue blood pressure medications VT prophylaxisHeparin 5th Femoral to popliteal artery bypass graft, placement likely early this week. It appears that vascular surgery visited her this morning. She may need n.p.o. tonight if they are planning to go for surgery tomorrow.
[2020-05-09] MEDS: Bacitracin Zinc Ointment 30 gm TUBE TOP PRN (15:38)
[2020-05-09 18:04] LABS: Glucose 135 mg/dL (80-115)
[2020-05-09] MEDS: Atorvastatin Calcium 40 MG TAB PO SCH (20:49)
[2020-05-09] MEDS: Divalproex Sodium DR 500 MG TAB PO SCH (20:50)
[2020-05-09] MEDS: Amlodipine 5 MG TAB PO SCH (20:50)
[2020-05-09 21:27] LABS: Glucose 157 mg/dL (80-115)
[2020-05-10 05:42] LABS: #Basophils 0.1 thou/uL (0.0-0.2); #Eosinphils 0.4 thou/uL (0.0-0.7); #Lymphocytes 2.7 thou/uL (1.20-3.40); #Monocytes 0.8 thou/uL (0.11-0.59); %Basophils 0.8 % (0.0-1.0); %Eosinophils 3.9 % (0.0-10.0); %Lymphocytes 26.9 % (21.0-51.0); %Neutrophils 60.4 % (42.0-75.0); Hemoglobin 9.4 g/dL (12.0-16.0); Mean Corpuscular HGB CONC 31.2 g/dL (32.0-36.0); Mean Corpuscular Hemoglobin 29.5 pg (27.0-31.0); Mean Corpuscular Volume 94.7 fL (78.0-98.0); Platelet Count 243 thou/uL (130-400); RBC Distribution Width 16.5 % (11.5-14.5); Red Blood Cell (RBC) Count 3.18 mill/uL (4.20-5.40); White Blood Cell (WBC) Count 9.9 thou/uL (4.8-10.8)
[2020-05-10] MEDS: Carvedilol 3.125 MG TAB PO SCH ×3 (05:55→20:26)
[2020-05-10 06:00] LABS: Anion Gap 11 mmol/L (10-20); BUN (Urea Nitrogen) 32 mg/dL (9.8-20.1); Calc. Creatinine Clearance 102 mL/min (70-130); Carbon Dioxide 32 mmol/L (23-31); Chloride 102 mmol/L (98-107); Estimated GFR-MDRD 68; Glucose 129 mg/dL (80-115); Potassium 4.2 mmol/L (3.5-5.1); Sodium 141 mmol/L (136-145)
[2020-05-10] MEDS ORDERED: Sodium Chloride 0.9% 10 ML ONE (06:28)
[2020-05-10] MEDS ORDERED: CABG-Vancomycin 1 GM in Premix Bag 1 BAG IVPB SCH (06:30)
[2020-05-10] MEDS ORDERED: Heparin 5,000 UNITS/ML VIAL ONE (06:57)
[2020-05-10] MEDS ORDERED: Protamine Sulfate 50 MG/5 ML VIAL ONE (06:57)
[2020-05-10] MEDS ORDERED: Midazolam HCl 2 mg/2 ml Vial ONE (07:12)
[2020-05-10] MEDS ORDERED: Fentanyl 250 MCG/5 ML VIAL ONE (07:12)
[2020-05-10] MEDS ORDERED: Vancomycin 1 GM/200 ML BAG ONE (07:14)
[2020-05-10] MEDS: Mometasone 200 MCG/Formoterol 5 MCG 120 PUFF INHALER INH SCH ×2 (07:43→18:19)
[2020-05-10] MEDS: Budesonide 0.5 MG/2 ML NEB NEB SCH ×2 (07:43→18:19)
[2020-05-10] MEDS: HumaLOG 300 UNITS/3 ML VIAL SC SCH ×3 (11:29→17:01)
[2020-05-10] MEDS: Citalopram 20 MG TAB PO SCH (11:30)
[2020-05-10] MEDS: Aspirin 81 mg Enteric Coated Tablet PO SCH (11:30)
[2020-05-10] MEDS: Gabapentin 300 MG CAP PO SCH ×3 (11:30→20:18)
[2020-05-10] MEDS: Amoxicillin/Potassium Clav 875 MG TAB PO SCH ×2 (11:30→20:18)
[2020-05-10] MEDS: Furosemide 20 MG TAB PO SCH (11:30)
[2020-05-10] MEDS: Polyethylene Glycol 3350 17 GM Packet PO SCH (11:31)
[2020-05-10] MEDS: Senokot S 8.6-50 MG TAB PO SCH ×2 (11:31→20:26)
[2020-05-10] MEDS: Heparin 5,000 UNITS/ML VIAL SC SCH ×4 (11:31→20:35)
--- NOTE | 2020-05-10 12:46 | OP ---
DATE OF PROCEDURE: 05/10/2020 PROCEDURES PERFORMED: Right common femoral artery to suprageniculate popliteal artery bypass with 8 mm [place] Propaten graft, and common femoral and suprageniculate popliteal artery endarterectomies. PREOPERATIVE DIAGNOSIS: Peripheral vascular disease with nonhealing wound, right 4th toe. POSTOPERATIVE DIAGNOSIS: Peripheral vascular disease with nonhealing wound, right 4th toe. ANESTHESIA: General endotracheal anesthesia. 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 While in rehab, she injured her right 4th toe and that wound has developed a dry eschar, but has not shown any evidence of healing. She has other dusky areas on that foot. An arteriography demonstrates an occluded superficial femoral artery with a rich network of collaterals reconstituting the suprageniculate popliteal artery with very sluggish flow through the trifurcation vessels. She is now taken to the operating room for revascularization for limb salvage to allow for some hope of ambulation with a walker or with a prosthesis. FINDINGS: A combination of hard and leathery plaque in both the common femoral and the popliteal arteries. Postoperatively, there was improved Doppler flow in the posterior tibial and dramatically improved Doppler flow in the anterior tibial as it crossed into the foot, and by the conclusion of the procedure with dressings on, she had a palpable dorsalis pedis pulse in the foot. DESCRIPTION OF PROCEDURE: After informed consent was obtained, the patient was taken to the operating room, placed in supine position on the operating table. After the induction of general anesthesia, the patient's lower abdomen, right groin, and right lower extremity were prepped and draped in sterile fashion, excluding the foot from the operative field with a sterile stockinette. An oblique incision was made parallel to and about a fingerbreadth below the right groin crease. The incision was carried through the subcutaneous tissue, rather large tributary to the saphenous system was retracted medially to allow for exposure of the femoral system, just lateral to that, the superficial femoral artery was first encounter. It was a hard leathery vessel with no palpable pulse. The dissection was carried up along the plane of [place]. The profunda came off fairly posteriorly as did a second branch. There were lateral and medial side branches at the femoral bifurcation. The dissection was carried up to the level of the lateral circumflex vessel coming off the distal external iliac. There was eccentric plaque that was palpable within the femoral artery at that level, but there was a strong pulse. That wound was packed and attention was then turned to the popliteal area, a longitudinal incision was made medially on the distal thigh. The popliteal space was entered and a leathery pulseless popliteal artery was identified, dissecting it distally to a little above the knee, the vessel became considerably softer. The patient was heparinized while graft passer was passed in the subsartorial tunnel from the groin wound down to the popliteal level, and an 8 mm [place]-Jaspal Propaten graft was brought to the field. After adequate circulation time of heparin, proximal and distal control was established on the popliteal artery and it was opened longitudinally with an 11 blade scalpel and Gloria scissors. There was a friable leathery plaque and some element of hard plaque that from the vessel wall almost immediately upon entering it, this was endarterectomized. It was transected proximally, and an attempt was made to aarti it from the vessel distally, but hard plaque was encountered. The arteriotomy was extended somewhat distally and the plaque extracted, loose ends were trimmed off. There was some tearing of the vessel wall laterally, again requiring a bit of extension of the arteriotomy distally to have good quality vessel at the toe. The graft was trimmed to length with a bevel, was beveled, and anastomosed there end-to-side with running 5-0 Prolene suture. There was modest back bleeding from the proximal SFA and fairly good back bleeding from the popliteal distally. The graft was flushed and a vascular clamp applied to it within the wound. It was then passed to the groin incision, and proximal and distal control was established on the distal external iliac artery and on the branches of the common femoral distally. Though not as dramatic as the popliteal, there was also leathery plaque that at the common femoral level. It was relatively easy to aarti plaque from the iliac proximally. The arteriotomy was extended distally down onto the origin of the SFA. The plaque was transected and then mattress sutures with knots on the outside of the vessel were used to tack down the plaque at the origin of the profunda. The graft was generously beveled to trim it to length and anastomosed there end-to-side with running Prolene. The graft was back bled as were the [place] vessels, and antegrade flow was allowed first into the side branches and profunda and the stump of the occluded SFA. The graft was ultimately opened. There was fairly brisk bleeding within the wound. Upon inspection, there were several bleeding areas associated with the endarterectomy. A posterior defect was repaired with a longitudinally oriented [id number] suture. A generous needle hole in the [place] vessel near the toe was similarly repaired and pinpoint bleeding from the lateral side branch at the distal common femoral was similarly repaired. When hemostasis appeared grossly adequate, protamine was administered and the wounds packed. When hemostasis was adequate, the wounds were irrigated and then closed in deep, subcutaneous, and subcuticular layers of Vicryl. Dermabond and dressings were applied, and the patient was awakened and extubated in the operating room and taken to the recovery area in good condition. Estimated blood loss during the procedure was 400 mL. She received 1400 mL of crystalloid and had 150 mL of urine output. Instrument, needle, and sponge counts were correct. Job ID: [id number]
[2020-05-10] MEDS ORDERED: Acetaminophen 325 MG TAB PO PRN (12:52)
[2020-05-10] MEDS ORDERED: Ondansetron PF 4 MG/2 ML Vial IVP PRN (12:52)
[2020-05-10] MEDS ORDERED: Fentanyl 100 MCG/2 ML VIAL SLOW IVP PRN ×2 (12:52)
[2020-05-10] MEDS: Sodium Chloride 0.9% 1,000 ML IV SCH (13:00)
[2020-05-10] MEDS ORDERED: PROPOFOL 200 MG/20 ML VIAL ONE (14:11)
[2020-05-10] MEDS ORDERED: Ondansetron PF 4 MG/2 ML Vial ONE (14:11)
[2020-05-10] MEDS ORDERED: Dexamethasone 20 MG/5 ML VIAL ONE (14:11)
[2020-05-10] MEDS ORDERED: Rocuronium Bromide 10 MG/ML (10ML VIAL) ONE (14:11)
[2020-05-10] MEDS ORDERED: Aspirin Chewable 81 MG TAB ONE (14:42)
[2020-05-10] MEDS ORDERED: Gabapentin 300 MG CAP ONE (14:43)
[2020-05-10] MEDS: Aspirin Chewable 81 MG TAB PO SCH (14:45)
--- NOTE | 2020-05-10 16:56 | PDOC.HOSPP ---
- Subjective Encounter Date: 05/10/20 Encounter Time: 17:00 Subjective: pt seen in PACU; still in PACU, s/p fem-pop bypass. HD'maia table, sats good. PO intake for dinner. she is ok to go to her room in 3333, if OK w.. vasc sux. as no bed available in the unit and IMCU and she may ahve to stay overnight in PACU. - Objective Vital Signs & Weight: Weight Admit Weight 221 lb Weight 209 lb 4.8 oz Most Recent Monitor Data Heart Rate from ECG 70 NIBP 113/71 NIBP BP-Mean 85 Respiration from ECG 15 SpO2 97 I&O: 05/09/20 05/10/20 05/11/20 06:59 06:59 06:59 Intake Total 1560 1920 Output Total 1620 1450 Balance -60 470 Result Diagrams: 05/10/20 05:04 05/10/20 05:04 Additional Labs: Accuchecks 05/10/20 05/10/20 05/09/20 13:05 05:13 20:48 POC Glucose 162 H 132 H 158 H Hospitalist ROS - Medication Medications: Active Medications Generic Name Dose Route Start Last Admin Trade Name Freq PRN Reason Stop Dose Admin Albuterol/Ipratropium 3 ml 04/28/20 11:00 05/10/20 14:24 Ipratropium/Albuterol Sulfate 3 Ml Neb NEB Not Given [id number] KLAUDIA Amlodipine Besylate 5 mg 04/30/20 21:00 05/09/20 20:50 Amlodipine 5 Mg Tab PO 5 mg HS KLAUDIA Administration Amoxicillin/Clavulanate Potassium 875 mg 05/07/20 21:00 05/10/20 11:30 Amoxicillin/Potassium Clav 875 Mg Tab PO 05/12/20 21:01 Not Given Q12HR KLAUDIA Aspirin 81 mg 05/10/20 12:52 05/10/20 14:45 Aspirin Chewable 81 Mg Tab PO 81 mg QAM KLAUDIA Administration Atorvastatin Calcium 40 mg 04/30/20 21:00 05/09/20 20:49 Atorvastatin Calcium 40 Mg Tab PO 40 mg HS KLAUDIA Administration Bacitracin Zinc 0 gm 05/06/20 16:50 05/09/20 15:38 Bacitracin Zinc Ointment 30 Gm Tube TOP 1 applic PRN PRN Administration DRESSING CHANGE Budesonide 0.5 mg 05/03/20 18:30 05/10/20 07:43 Budesonide 0.5 Mg/2 Ml Neb NEB Not Given BID-RT KLAUDIA Carvedilol 3.125 mg 04/29/20 21:00 05/10/20 05:55 Carvedilol 3.125 Mg Tab PO 3.125 mg BID KLAUDIA Administration Citalopram Hydrobromide 20 mg 04/28/20 09:00 05/10/20 11:30 Citalopram 20 Mg Tab PO Not Given DAILY KLAUDIA Divalproex Sodium 500 mg 04/28/20 21:00 05/09/20 20:[address] 500 Mg Tab PO 500 mg HS KLAUDIA Administration Furosemide 20 mg 05/10/20 09:00 05/10/20 11:30 Furosemide 20 Mg Tab PO Not Given DAILY KLAUDIA Gabapentin 300 mg 04/28/20 09:00 05/10/20 14:45 Gabapentin 300 Mg Cap PO 300 mg TID KLAUDIA Administration Heparin Sodium (Porcine) 5,000 units 04/28/20 09:00 05/10/20 14:45 Heparin 5,000 Units/Ml Vial SC Not Given TID KLAUDIA Sodium Chloride 1,000 mls @ 50 mls/hr 05/10/20 12:52 05/10/20 13:00 Normal Saline 0.9% IV 1,000 mls .Q20H KLAUDIA Administration Insulin Human Lispro 0 units 04/27/20 21:39 05/05/20 21:08 Humalog 300 Units/3 Ml Vial SC 2 unit .BEDTIME SLIDING SC PRN Administration Bedtime Correctional Scale Insulin Human Lispro 12 units 05/06/20 17:00 05/10/20 13:47 Humalog 300 Units/3 Ml Vial SC Not Given TID-WM KLAUDIA Insulin Human Lispro 0 units 05/08/20 11:15 05/08/20 13:02 Humalog 300 Units/3 Ml Vial SC 3 units .MILD SLIDING SCALE PRN Administration MILD SLIDING SCALE Protocol Mometasone Furoate/Formoterol Fumar 2 puff 04/28/20 18:30 05/10/20 07:43 Mometasone 200 Mcg/Formoterol 5 Mcg 120 Puff Inhaler INH Not Given BID-RT KLAUDIA Polyethylene Glycol 17 gm 05/07/20 09:00 05/10/20 11:31 Polyethylene Glycol 3350 17 Gm Packet PO Not Given DAILY [facility] Senna/Docusate Sodium 1 tab 05/06/20 21:00 05/10/20 11:31 Senokot S 8.6-50 Mg Tab PO Not Given BID [facility] Sodium Chloride 10 ml 05/08/20 21:00 05/10/20 11:31 Flush - Normal Saline 10 Ml Syringe IVF Not Given Q12HR KLAUDIA - Exam General Appearance: NAD, awake alert Eye: PERRL ENT: normocephalic atraumatic Neck: supple Heart: RRR Respiratory: CTAB, normal chest expansion Gastrointestinal: soft, normal bowel sounds Neurological - other findings: s/p fem-pop bypass. HD'maia table, sats good. Psychiatric: A&O x 3 Hosp A/P - Plan Acute hypoxic respiratory failure (resolved) CHF exacerbation Continue diuresis----------------------->Po -Creatinine 0.94 few days ago. COPD exacerbation Continue steroids and antibiotics -Given the surgery we should still keep her off the steroid also difficult to control the blood glucose if she is on steroid. -She is clinically better will take her off the prednisone. -IV antibiotics changed to Augmentin. PRN oxygen. Diabetes mellitus type II with peripheral neuropathy Sliding scale insulin -A1c 6.5 -Given the surgery the goal is to keep the blood glucose below 180. Some of the readings ranged after 309. -Treat with oral hypoglycemic drug but we are going to wait until surgery is completed. Carotid artery disease -Status post stenting Continue on aspirin Left AKA stump wound Status post surgeryAKA Wound dressed and clean. Gangrene right fourth digit - s/p angioplasty; - She probably need a femoral to popliteal artery bypass graft -Likely to be performed by next week. - Appreciate vascular/surgery input Hypertension within goal Continue blood pressure medications VT prophylaxisHeparin 5th Femoral to popliteal artery bypass graft, placement likely early this week. It appears that vascular surgery visited her this morning. She may need n.p.o. tonight if they are planning to go for surgery tomorrow. 6th s/p fem-pop bypass. HD'ly stable, sats good. PO intake for dinner. she is ok to go to her room in 3332, if OK w.. ezio abebe. as no bed available in the unit and IMCU and she may have to stay overnight in PACU.
[2020-05-10 18:18] LABS: Glucose 318 mg/dL (80-115)
[2020-05-10] MEDS: Divalproex Sodium DR 500 MG TAB PO SCH (20:18)
[2020-05-10] MEDS: Atorvastatin Calcium 40 MG TAB PO SCH (20:18)
[2020-05-10] MEDS: HumaLOG 300 UNITS/3 ML VIAL SC PRN (20:22)
[2020-05-10] MEDS: Amlodipine 5 MG TAB PO SCH (20:36)
[2020-05-10 21:07] LABS: Glucose 252 mg/dL (80-115)
[2020-05-11 03:17] LABS: #Basophils 0.1 thou/uL (0.0-0.2); #Eosinphils 0.1 thou/uL (0.0-0.7); #Lymphocytes 1.5 thou/uL (1.20-3.40); #Monocytes 0.5 thou/uL (0.11-0.59); #Neutrophils 7.4 thou/uL (1.40-6.50); %Basophils 0.6 % (0.0-1.0); %Eosinophils 0.7 % (0.0-10.0); %Lymphocytes 15.5 % (21.0-51.0); %Monocytes 5.3 % (0.0-10.0); %Neutrophils 77.9 % (42.0-75.0); Hemoglobin 8.8 g/dL (12.0-16.0); Mean Corpuscular HGB CONC 31.2 g/dL (32.0-36.0); Mean Corpuscular Hemoglobin 29.5 pg (27.0-31.0); Mean Corpuscular Volume 94.5 fL (78.0-98.0); Mean Platelet Volume 8.5 fL (7.4-10.4); Platelet Count 217 thou/uL (130-400); RBC Distribution Width 16.3 % (11.5-14.5); Red Blood Cell (RBC) Count 2.97 mill/uL (4.20-5.40); White Blood Cell (WBC) Count 9.5 thou/uL (4.8-10.8)
[2020-05-11 03:38] LABS: Anion Gap 11 mmol/L (10-20); BUN (Urea Nitrogen) 27 mg/dL (9.8-20.1); Calc. Creatinine Clearance 100 mL/min (70-130); Carbon Dioxide 28 mmol/L (23-31); Chloride 105 mmol/L (98-107); Estimated GFR-MDRD 67; Glucose 245 mg/dL (80-115); Potassium 4.5 mmol/L (3.5-5.1); Sodium 139 mmol/L (136-145)
[2020-05-11] MEDS: Budesonide 0.5 MG/2 ML NEB NEB SCH ×2 (07:33→18:21)
[2020-05-11] MEDS: Mometasone 200 MCG/Formoterol 5 MCG 120 PUFF INHALER INH SCH ×2 (07:49→18:22)
[2020-05-11] MEDS: Senokot S 8.6-50 MG TAB PO SCH ×2 (08:04→21:26)
[2020-05-11] MEDS: Amoxicillin/Potassium Clav 875 MG TAB PO SCH ×2 (08:04→21:26)
[2020-05-11] MEDS: Gabapentin 300 MG CAP PO SCH ×3 (08:05→21:26)
[2020-05-11] MEDS: Furosemide 20 MG TAB PO SCH (08:05)
[2020-05-11] MEDS: Aspirin Chewable 81 MG TAB PO SCH (08:05)
[2020-05-11] MEDS: Carvedilol 3.125 MG TAB PO SCH ×2 (08:05→21:27)
[2020-05-11] MEDS: Heparin 5,000 UNITS/ML VIAL SC SCH ×3 (08:05→21:28)
[2020-05-11] MEDS: Citalopram 20 MG TAB PO SCH (08:06)
[2020-05-11] MEDS: HumaLOG 300 UNITS/3 ML VIAL SC SCH (08:09)
[2020-05-11] MEDS: HumaLOG 300 UNITS/3 ML VIAL SC PRN ×2 (08:10→18:11)
--- NOTE | 2020-05-11 08:48 | RAD ---
CHEST 1 VIEW: Oxygen dependent. COMPARISON: Radiograph 04/27/2020. FINDINGS: Large right and small left layering pleural effusions. Heart size is enlarged. No pneumothorax. Lo w-grade pulmonary venous congestion. Calcific tendinosis of the right rotator cuff. No acute osseous abnormality. IMPRESSION: 1. Moderate to large right and small left layering pleural effusions. 2. Mild cardiomegaly and pulmonary venous congestion. POS: H
--- NOTE | 2020-05-11 08:52 | PRG ---
DATE OF SERVICE: 05/11/2020 SUBJECTIVE: Nilda Menendez is in the ICU post surgery on her right leg. She denies any difficulty breathing. OBJECTIVE: VITAL SIGNS: Pulse respiratory rate 14, sats 99% on 2 L, blood pressure 105/62. CHEST: No wheezing. No crackles. CARDIAC: Normal S1, S2. No gallops. ABDOMEN: No masses. IMPRESSION: 1. Status post revision right leg vascular. 2. Chronic obstructive pulmonary disease, stable. PLAN: Pulmonary smith, disposition as per Surgery. She can probably be transferred out of the ICU. Her chest x-ray shows a questionable infiltrate in the right base. This could be a little bit of postop atelectatic changes versus fluid, though she is clearly stable. Continue PT, supportive care. Pulmonary is going to follow while in the ICU. Job ID: [id number]
[2020-05-11] MEDS: Sodium Chloride 0.9% 1,000 ML IV SCH (09:36)
[2020-05-11] MEDS: Polyethylene Glycol 3350 17 GM Packet PO SCH (09:36)
[2020-05-11] MEDS: HYDROcodone/Acetaminophen 5/325 mg Tablet PO PRN ×2 (10:07→21:26)
[2020-05-11] MEDS ORDERED: Sodium Chloride 0.9% 500 ML IV SCH (11:00)
[2020-05-11 11:55] LABS: Glucose 162 mg/dL (80-115)
[2020-05-11 11:57] VITALS: BMI 36.0
--- NOTE | 2020-05-11 15:10 | PDOC.HOSPP ---
- Subjective Encounter Date: 05/11/20 Encounter Time: 10:40 Subjective: Patient being moved to surgical floor. She did well overnight. However when she came to the floor her blood pressure is on the low side. Giving a fluid bolus. currently at 95/57. Patient is asymptomatic in the entire time. Her blood glucose is okay today around 162. - Objective Vital Signs & Weight: Vital Signs (12 hours) Temp Pulse Pulse Resp BP BP Pulse Ox 05/11/20 14:18 75 18 100 05/11/20 13:58 73 96/61 05/11/20 11:47 95/57 L 05/11/20 11:33 93/60 05/11/20 11:10 90/59 L 05/11/20 10:30 97.7 F 75 16 74/47 L 95 05/11/20 09:00 97.8 F 05/11/20 08:00 100 05/11/20 07:31 79 14 99 05/11/20 04:00 97.7 F Weight Admit Weight 223 lb Weight 209 lb 14.081 oz Most Recent Monitor Data Heart Rate from ECG 80 NIBP 101/57 NIBP BP-Mean 71 Respiration from ECG 20 SpO2 99 I&O: 05/10/20 05/11/20 05/12/20 06:59 06:59 06:59 Intake Total 1920 266 774 Output Total 1450 635 195 Balance 470 -369 579 Result Diagrams: 05/11/20 03:08 05/11/20 11:31 Additional Labs: Accuchecks 05/11/20 05/10/20 06:53 17:10 POC Glucose 219 H 258 H Hospitalist ROS - Medication Medications: Active Medications Generic Name Dose Route Start Last Admin Trade Name Freq PRN Reason Stop Dose Admin Hydrocodone Bitart/Acetaminophen 1 tab 05/10/20 12:52 05/11/20 10:07 Hydrocodone/Acetaminophen 5/325 Mg Tablet PO 1 tab Q4H PRN Administration Mild Pain (1-3) Albuterol/Ipratropium 3 ml 04/28/20 11:00 05/11/20 14:18 Ipratropium/Albuterol Sulfate 3 Ml Neb NEB 3 ml [id number] KLAUDIA Administration Amlodipine Besylate 5 mg 04/30/20 21:00 05/10/20 20:36 Amlodipine 5 Mg Tab PO Not Given HS KLAUDIA Amoxicillin/Clavulanate Potassium 875 mg 05/07/20 21:00 05/11/20 08:04 Amoxicillin/Potassium Clav 875 Mg Tab PO 05/12/20 21:01 875 mg Q12HR KLAUDIA Administration Aspirin 81 mg 05/10/20 12:52 05/11/20 08:05 Aspirin Chewable 81 Mg Tab PO 81 mg QAM KLAUDIA Administration Atorvastatin Calcium 40 mg 04/30/20 21:00 05/10/20 20:18 Atorvastatin Calcium 40 Mg Tab PO 40 mg HS KLAUDIA Administration Bacitracin Zinc 0 gm 05/06/20 16:50 05/09/20 15:38 Bacitracin Zinc Ointment 30 Gm Tube TOP 1 applic PRN PRN Administration DRESSING CHANGE Budesonide 0.5 mg 05/03/20 18:30 05/11/20 07:33 Budesonide 0.5 Mg/2 Ml Neb NEB 0.5 mg BID-RT KLAUDIA Administration Carvedilol 3.125 mg 04/29/20 21:00 05/11/20 08:05 Carvedilol 3.125 Mg Tab PO 3.125 mg BID KLAUDIA Administration Citalopram Hydrobromide 20 mg 04/28/20 09:00 05/11/20 08:06 Citalopram 20 Mg Tab PO 20 mg DAILY KLAUDIA Administration Divalproex Sodium 500 mg 04/28/20 21:00 05/10/20 20:[address] 500 Mg Tab PO 500 mg HS KLAUDIA Administration Furosemide 20 mg 05/10/20 09:00 05/11/20 08:05 Furosemide 20 Mg Tab PO 20 mg DAILY KLAUDIA Administration Gabapentin 300 mg 04/28/20 09:00 05/11/20 14:33 Gabapentin 300 Mg Cap PO 300 mg TID KLAUDIA Administration Heparin Sodium (Porcine) 5,000 units 04/28/20 09:00 05/11/20 14:33 Heparin 5,000 Units/Ml Vial SC 5,000 units TID KLAUDIA Administration Insulin Human Lispro 0 units 04/27/20 21:39 05/10/20 20:22 Humalog 300 Units/3 Ml Vial SC 3 unit .BEDTIME SLIDING SC PRN Administration Bedtime Correctional Scale Insulin Human Lispro 0 units 05/08/20 11:15 05/11/20 08:10 Humalog 300 Units/3 Ml Vial SC 3 units .MILD SLIDING SCALE PRN Administration MILD SLIDING SCALE Protocol Mometasone Furoate/Formoterol Fumar 2 puff 04/28/20 18:30 05/11/20 07:49 Mometasone 200 Mcg/Formoterol 5 Mcg 120 Puff Inhaler INH 2 puff BID-RT KLAUDIA Administration Polyethylene Glycol 17 gm 05/07/20 09:00 05/11/20 09:36 Polyethylene Glycol 3350 17 Gm Packet PO Not Given DAILY KLAUDIA Senna/Docusate Sodium 1 tab 05/06/20 21:00 05/11/20 08:04 Senokot S 8.6-50 Mg Tab PO 1 tab BID KLAUDIA Administration Sodium Chloride 10 ml 05/08/20 21:00 05/11/20 09:36 Flush - Normal Saline 10 Ml Syringe IVF Not Given Q12HR KLAUDIA - Exam General Appearance: NAD, awake alert Eye: PERRL ENT: normocephalic atraumatic Neck: supple Heart: RRR Respiratory: CTAB, normal chest expansion Gastrointestinal: soft, normal bowel sounds Extremities - other findings: Status post fem- popliteal bypass. Psychiatric: A&O x 3 Hosp A/P - Plan Acute hypoxic respiratory failure (resolved) CHF exacerbation Continue diuresis----------------------->Po -Creatinine 0.94 few days ago. COPD exacerbation Continue steroids and antibiotics -Given the surgery we should still keep her off the steroid also difficult to control the blood glucose if she is on steroid. -She is clinically better will take her off the prednisone. -IV antibiotics changed to Augmentin. PRN oxygen. Diabetes mellitus type II with peripheral neuropathy Sliding scale insulin -A1c 6.5 -Given the surgery the goal is to keep the blood glucose below 180. Some of the readings ranged after 309. -Treat with oral hypoglycemic drug but we are going to wait until surgery is completed. Carotid artery disease -Status post stenting Continue on aspirin Left AKA stump wound Status post surgeryAKA Wound dressed and clean. Gangrene right fourth digit - s/p angioplasty; - She probably need a femoral to popliteal artery bypass graft -Likely to be performed by next week. - Appreciate vascular/surgery input Hypertension within goal Continue blood pressure medications VT prophylaxisHeparin 5th Femoral to popliteal artery bypass graft, placement likely early this week. It appears that vascular surgery visited her this morning. She may need n.p.o. tonight if they are planning to go for surgery tomorrow. 6th s/p fem-pop bypass. HD'ly stable, sats good. PO intake for dinner. she is ok to go to her room in 3333, if OK w.. vasc sux. as no bed available in the unit and IMCU and she may have to stay overnight in PACU. 7th Peripheral vascular disease Right fourth digit gangrene Status post femoral -popliteal bypass graft COPD--- off prednisone; on Augmentin Type 2 diabetes mellitus -Controlled Hypertension now with the blood pressure on the low side. -She is on Coreg which will continue with the low doses. Discontinued the Norvasc
--- NOTE | 2020-05-11 16:28 | EKG ---
Test Reason : SOB Blood Pressure : / mmHG Vent. Rate : 084 BPM Atrial Rate : 084 BPM P-R Int : 156 ms QRS Dur : 078 ms QT Int : 390 ms P-R-T Axes : 078 051 051 degrees QTc Int : 460 ms Normal sinus rhythm Low voltage QRS Nonspecific ST abnormality Abnormal ECG Confirmed by DYLON SIMMONS DO ([id number]), manuscript editor DANIELA FAIRCHILD ([id number] on 05/11/2020 4:27:47 PM Referred By: IRIS Confirmed By:DYLON SIMMONS DO
[2020-05-11 17:20] LABS: Glucose 287 mg/dL (80-115)
[2020-05-11] MEDS ORDERED: NPH, Human Insulin Isophane 300 UNIT/3 ML VIAL SC SCH (21:00)
[2020-05-11] MEDS: NPH, Human Insulin Isophane 300 UNIT/3 ML VIAL SC SCH (21:25)
[2020-05-11] MEDS: Atorvastatin Calcium 40 MG TAB PO SCH (21:26)
[2020-05-11] MEDS: Divalproex Sodium DR 500 MG TAB PO SCH (21:26)
[2020-05-12] MEDS: Mometasone 200 MCG/Formoterol 5 MCG 120 PUFF INHALER INH SCH ×2 (07:27→19:20)
[2020-05-12] MEDS: Budesonide 0.5 MG/2 ML NEB NEB SCH ×2 (07:27→19:17)
[2020-05-12 07:52] LABS: Glucose 112 mg/dL (80-115)
[2020-05-12] MEDS: Amoxicillin/Potassium Clav 875 MG TAB PO SCH ×2 (08:55→21:06)
[2020-05-12] MEDS: Senokot S 8.6-50 MG TAB PO SCH ×2 (08:55→21:06)
[2020-05-12] MEDS: Carvedilol 3.125 MG TAB PO SCH ×2 (08:56→21:06)
[2020-05-12] MEDS: Furosemide 20 MG TAB PO SCH (08:56)
[2020-05-12] MEDS: Gabapentin 300 MG CAP PO SCH ×3 (08:56→21:06)
[2020-05-12] MEDS: Aspirin Chewable 81 MG TAB PO SCH (08:56)
[2020-05-12] MEDS: Citalopram 20 MG TAB PO SCH (08:57)
[2020-05-12] MEDS: NPH, Human Insulin Isophane 300 UNIT/3 ML VIAL SC SCH ×2 (08:57→21:34)
[2020-05-12] MEDS: Polyethylene Glycol 3350 17 GM Packet PO SCH (08:57)
[2020-05-12] MEDS: Heparin 5,000 UNITS/ML VIAL SC SCH ×3 (08:57→21:07)
[2020-05-12 09:34] LABS: #Basophils 0.1 thou/uL (0.0-0.2); #Eosinphils 0.4 thou/uL (0.0-0.7); #Lymphocytes 2.9 thou/uL (1.20-3.40); #Neutrophils 8.9 thou/uL (1.40-6.50); %Basophils 0.6 % (0.0-1.0); %Eosinophils 3.2 % (0.0-10.0); %Monocytes 7.3 % (0.0-10.0); %Neutrophils 66.8 % (42.0-75.0); Hemoglobin 8.3 g/dL (12.0-16.0); Mean Corpuscular HGB CONC 30.8 g/dL (32.0-36.0); Mean Corpuscular Hemoglobin 29.6 pg (27.0-31.0); Mean Corpuscular Volume 96.1 fL (78.0-98.0); Mean Platelet Volume 8.4 fL (7.4-10.4); Platelet Count 205 thou/uL (130-400); RBC Distribution Width 16.7 % (11.5-14.5); Red Blood Cell (RBC) Count 2.79 mill/uL (4.20-5.40); White Blood Cell (WBC) Count 13.3 thou/uL (4.8-10.8)
[2020-05-12 09:52] LABS: Anion Gap 10 mmol/L (10-20); BUN (Urea Nitrogen) 24 mg/dL (9.8-20.1); Calc. Creatinine Clearance 102 mL/min (70-130); Calcium 7.8 mg/dL (7.8-10.44); Carbon Dioxide 27 mmol/L (23-31); Chloride 107 mmol/L (98-107); Estimated GFR-MDRD 64; Glucose 170 mg/dL (80-115); Potassium 4.1 mmol/L (3.5-5.1); Sodium 140 mmol/L (136-145)
--- NOTE | 2020-05-12 10:04 | PRG ---
DATE OF SERVICE: 05/12/2020 SUBJECTIVE: She was transferred out of the ICU to surgical floor. She is doing well post surgery, revision of her stump and right common femoral artery bypass for peripheral vascular disease. No longer having difficulty breathing. OBJECTIVE: VITAL SIGNS: Sats are 97% on 2 L, respirations 16, pulse 88, temperature 98, blood pressure 180/69. CHEST: No wheezing. No crackles. CARDIAC: Normal S1, S2. No gallops. ABDOMEN: No masses. IMPRESSION: 1. Status post right leg. 2. Status post BK amputation. 3. Chronic obstructive pulmonary disease. PLAN: Pulmonary point, she is stable. Continue otherwise present treatment. Pulmonary will follow at a distance. Call if needed. Job ID: [id number]
[2020-05-12 10:39] LABS: Clarity Clear (Clear)
[2020-05-12 10:40] LABS: Glucose, Urine (Dipstick) Negative (Negative); Ketone, Urine Trace mg/dL (Negative); Leukocyte Negative (Negative); Nitrite Negative (Negative); Protein, Urine (Dipstick) Trace mg/dL (Neg-Trace); Specific Gravity, Urine 1.025 (1.005-1.030); pH, Urine 5.5 (5.0-9.0)
[2020-05-12 10:41] LABS: Bilirubin Negative (Negative); Blood, Urine Negative (Negative); Urobilinogen 0.2 mg/dL (Less than 2)
[2020-05-12] MEDS: HYDROcodone/Acetaminophen 5/325 mg Tablet PO PRN (11:58)
--- NOTE | 2020-05-12 13:34 | PDOC.HOSPP ---
- Subjective Encounter Date: 05/12/20 Encounter Time: 09:00 Subjective: Patient has no acute complaints. She did not had a bowel movement today. She is getting stool softeners. Physical therapy is following her. - Objective Vital Signs & Weight: Vital Signs (12 hours) Temp Pulse Resp BP Pulse Ox 05/12/20 10:48 98.5 F 84 16 106/67 97 05/12/20 10:39 75 16 96 05/12/20 08:01 98.7 F 88 16 108/69 97 05/12/20 07:27 84 16 96 05/12/20 04:30 97.7 F 80 16 117/78 97 Weight Admit Weight 223 lb Weight 220 lb 11.2 oz Most Recent Monitor Data Heart Rate from ECG 80 NIBP 101/57 NIBP BP-Mean 71 Respiration from ECG 20 SpO2 99 I&O: 05/11/20 05/12/20 05/13/20 06:59 06:59 06:59 Intake Total 266 2324 Output Total 635 1045 Balance -369 1279 Result Diagrams: 05/12/20 09:23 05/12/20 09:23 Additional Labs: Accuchecks 05/12/20 05/12/20 05/11/20 10:58 05:43 21:10 POC Glucose 143 H 109 H 249 H 05/11/20 05/10/20 06:53 20:22 POC Glucose 219 H 239 H Hospitalist ROS - Medication Medications: Active Medications Generic Name Dose Route Start Last Admin Trade Name Freq PRN Reason Stop Dose Admin Hydrocodone Bitart/Acetaminophen 1 tab 05/10/20 12:52 05/11/20 21:26 Hydrocodone/Acetaminophen 5/325 Mg Tablet PO 1 tab Q4H PRN Administration Mild Pain (1-3) Hydrocodone Bitart/Acetaminophen 2 tab 05/10/20 12:52 05/12/20 11:58 Hydrocodone/Acetaminophen 5/325 Mg Tablet PO 2 tab Q4H PRN Administration Moderate Pain (4-6) Albuterol/Ipratropium 3 ml 04/28/20 11:00 05/12/20 10:39 Ipratropium/Albuterol Sulfate 3 Ml Neb NEB 3 ml [id number] KLAUDIA Administration Amoxicillin/Clavulanate Potassium 875 mg 05/07/20 21:00 05/12/20 08:55 Amoxicillin/Potassium Clav 875 Mg Tab PO 05/12/20 21:01 875 mg Q12HR KLAUDIA Administration Aspirin 81 mg 05/10/20 12:52 05/12/20 08:56 Aspirin Chewable 81 Mg Tab PO 81 mg QAM KLAUDIA Administration Atorvastatin Calcium 40 mg 04/30/20 21:00 05/11/20 21:26 Atorvastatin Calcium 40 Mg Tab PO 40 mg HS KLAUDIA Administration Bacitracin Zinc 0 gm 05/06/20 16:50 05/09/20 15:38 Bacitracin Zinc Ointment 30 Gm Tube TOP 1 applic PRN PRN Administration DRESSING CHANGE Budesonide 0.5 mg 05/03/20 18:30 05/12/20 07:27 Budesonide 0.5 Mg/2 Ml Neb NEB 0.5 mg BID-RT KLAUDIA Administration Carvedilol 3.125 mg 04/29/20 21:00 05/12/20 08:56 Carvedilol 3.125 Mg Tab PO 3.125 mg BID KLAUDIA Administration Citalopram Hydrobromide 20 mg 04/28/20 09:00 05/12/20 08:57 Citalopram 20 Mg Tab PO 20 mg DAILY KLAUDIA Administration Divalproex Sodium 500 mg 04/28/20 21:00 05/11/20 21:[address] 500 Mg Tab PO 500 mg HS KLAUDIA Administration Furosemide 20 mg 05/10/20 09:00 05/12/20 08:56 Furosemide 20 Mg Tab PO 20 mg DAILY KLAUDIA Administration Gabapentin 300 mg 04/28/20 09:00 05/12/20 08:56 Gabapentin 300 Mg Cap PO 300 mg TID KLAUDIA Administration Heparin Sodium (Porcine) 5,000 units 04/28/20 09:00 05/12/20 08:57 Heparin 5,000 Units/Ml Vial SC 5,000 units TID KLAUDIA Administration Insulin Human Lispro 0 units 04/27/20 21:39 05/10/20 20:22 Humalog 300 Units/3 Ml Vial SC 3 unit .BEDTIME SLIDING SC PRN Administration Bedtime Correctional Scale Insulin Human Lispro 0 units 05/08/20 11:15 05/11/20 18:11 Humalog 300 Units/3 Ml Vial SC 4 units .MILD SLIDING SCALE PRN Administration MILD SLIDING SCALE Protocol Insulin Human NPH 20 unit 05/11/20 21:00 05/12/20 08:57 Nph, Human Insulin Isophane 300 Unit/3 Ml Vial SC 20 unit BID KLAUDIA Administration Mometasone Furoate/Formoterol Fumar 2 puff 04/28/20 18:30 05/12/20 07:27 Mometasone 200 Mcg/Formoterol 5 Mcg 120 Puff Inhaler INH 2 puff BID-RT KLAUDIA Administration Polyethylene Glycol 17 gm 05/07/20 09:00 05/12/20 08:57 Polyethylene Glycol 3350 17 Gm Packet PO 17 gm DAILY KLAUDIA Administration Senna/Docusate Sodium 1 tab 05/06/20 21:00 05/12/20 08:55 Senokot S 8.6-50 Mg Tab PO 1 tab BID KLAUDIA Administration Sodium Chloride 10 ml 05/08/20 21:00 05/12/20 08:58 Flush - Normal Saline 10 Ml Syringe IVF 10 ml Q12HR KLAUDIA Administration - Exam General Appearance: NAD, awake alert Eye: PERRL ENT: normocephalic atraumatic Neck: supple Heart: RRR Respiratory: CTAB Gastrointestinal: soft, no palpable masses Extremities - other findings: Left below-knee amputation; right femoropopliteal bypass Psychiatric: A&O x 3 Hosp A/P - Plan Acute hypoxic respiratory failure (resolved) CHF exacerbation Continue diuresis----------------------->Po -Creatinine 0.94 few days ago. COPD exacerbation Continue steroids and antibiotics -Given the surgery we should still keep her off the steroid also difficult to control the blood glucose if she is on steroid. -She is clinically better will take her off the prednisone. -IV antibiotics changed to Augmentin. PRN oxygen. Diabetes mellitus type II with peripheral neuropathy Sliding scale insulin -A1c 6.5 -Given the surgery the goal is to keep the blood glucose below 180. Some of the readings ranged after 309. -Treat with oral hypoglycemic drug but we are going to wait until surgery is completed. Carotid artery disease -Status post stenting Continue on aspirin Left AKA stump wound Status post surgeryAKA Wound dressed and clean. Gangrene right fourth digit - s/p angioplasty; - She probably need a femoral to popliteal artery bypass graft -Likely to be performed by next week. - Appreciate vascular/surgery input Hypertension within goal Continue blood pressure medications VT prophylaxisHeparin 5th Femoral to popliteal artery bypass graft, placement likely early this week. It appears that vascular surgery visited her this morning. She may need n.p.o. tonight if they are planning to go for surgery tomorrow. 6th s/p fem-pop bypass. HD'ly stable, sats good. PO intake for dinner. she is ok to go to her room in 3333, if OK w.. vasc sux. as no bed available in the unit and IMCU and she may have to stay overnight in PACU. 7th Peripheral vascular disease Right fourth digit gangrene Status post femoral -popliteal bypass graft COPD--- off prednisone; on Augmentin Type 2 diabetes mellitus -Controlled Hypertension now with the blood pressure on the low side. -She is on Coreg which will continue with the low doses. Discontinued the Nor vasc 8th Stable currently pending home with home health versus rehab after clearance from vascular surgery. PT is following. We will place OT consult as well as upper caser for discharge planning.
[2020-05-12 17:25] LABS: Glucose 180 mg/dL (80-115)
[2020-05-12] MEDS: Atorvastatin Calcium 40 MG TAB PO SCH (21:06)
[2020-05-12] MEDS: Divalproex Sodium DR 500 MG TAB PO SCH (21:07)
[2020-05-12 21:35] LABS: Glucose 194 mg/dL (80-115)
[2020-05-13] MEDS: Budesonide 0.5 MG/2 ML NEB NEB SCH (07:06)
[2020-05-13] MEDS: Mometasone 200 MCG/Formoterol 5 MCG 120 PUFF INHALER INH SCH (07:06)
[2020-05-13 07:16] LABS: Glucose 122 mg/dL (80-115)
[2020-05-13] MEDS: Senokot S 8.6-50 MG TAB PO SCH (09:15)
[2020-05-13] MEDS: Furosemide 20 MG TAB PO SCH (09:15)
[2020-05-13] MEDS: Citalopram 20 MG TAB PO SCH (09:15)
[2020-05-13] MEDS: Carvedilol 3.125 MG TAB PO SCH (09:15)
[2020-05-13] MEDS: Heparin 5,000 UNITS/ML VIAL SC SCH (09:15)
[2020-05-13] MEDS: Gabapentin 300 MG CAP PO SCH (09:15)
[2020-05-13] MEDS: Aspirin Chewable 81 MG TAB PO SCH (09:15)
[2020-05-13] MEDS: NPH, Human Insulin Isophane 300 UNIT/3 ML VIAL SC SCH (09:15)
[2020-05-13] MEDS: HYDROcodone/Acetaminophen 5/325 mg Tablet PO PRN (09:16)
[2020-05-13] MEDS: Polyethylene Glycol 3350 17 GM Packet PO SCH (09:18)
[2020-05-13 12:24] VITALS: BP 107/71; TEMP 97.7
[2020-05-13 12:50] LABS: #Basophils 0.1 thou/uL (0.0-0.2); #Eosinphils 0.4 thou/uL (0.0-0.7); #Lymphocytes 2.4 thou/uL (1.20-3.40); #Monocytes 0.7 thou/uL (0.11-0.59); #Neutrophils 5.6 thou/uL (1.40-6.50); %Basophils 0.9 % (0.0-1.0); %Eosinophils 4.8 % (0.0-10.0); %Lymphocytes 25.6 % (21.0-51.0); %Monocytes 7.3 % (0.0-10.0); %Neutrophils 61.4 % (42.0-75.0); Hemoglobin 8.5 g/dL (12.0-16.0); Mean Corpuscular HGB CONC 31.1 g/dL (32.0-36.0); Mean Corpuscular Hemoglobin 29.6 pg (27.0-31.0); Mean Corpuscular Volume 95.3 fL (78.0-98.0); Mean Platelet Volume 8.6 fL (7.4-10.4); Platelet Count 210 thou/uL (130-400); RBC Distribution Width 16.5 % (11.5-14.5); Red Blood Cell (RBC) Count 2.87 mill/uL (4.20-5.40); White Blood Cell (WBC) Count 9.2 thou/uL (4.8-10.8)
[2020-05-13 13:08] LABS: Glucose 156 mg/dL (80-115)
--- NOTE | 2020-05-16 07:35 | DIS ---
DATE OF ADMISSION: 04/27/2020 DATE OF DISCHARGE: 05/13/2020 DISCHARGE DIAGNOSES: 1. Peripheral vascular disease, right 4th digit gangrene, status post angioplasty and femoral to popliteal bypass. 2. Carotid artery disease, status post stent recently. 3. Type 2 diabetes mellitus with peripheral neuropathy and A1c of 6.5. 4. Chronic obstructive pulmonary disease exacerbation. 5. Acute on chronic diastolic CHF exacerbation. 6. Acute hypoxic respiratory failure. 7. Hypertension. CONSULTS: 1. Pulmonary with Dr. Murphy. 2. Cardiology with Dr. Phipps. 3. Vascular Surgery with Dr. Karl Segundo. 4. Dr. Greenberg. PROCEDURES PERFORMED: Aortogram with bilateral lower extremity runoff and femoral-popliteal bypass graft. DISCHARGE MEDICATIONS: 1. Metformin 500 mg twice a day. 2. Gabapentin 300 mg three times a day. 3. Depakote 500 mg at bedtime. 4. Celexa 20 mg daily. 5. Lantus 25 units twice a day. 6. Kemp as needed. 7. ProAir. PHYSICAL EXAMINATION: VITAL SIGNS: On the day of discharge; temperature 97.7, pulse 72, blood pressure 107/71, saturating 99% on room air. GENERAL: The patient is alert, oriented, and she is going to the rehab today. CARDIOVASCULAR: Regular rate and rhythm without murmurs, rubs, or gallops. LUNGS: Clear to auscultation bilaterally without wheezing, rales, or rhonchi. ABDOMEN: Soft, nontender, nondistended. Good bowel sounds. EXTREMITIES. She has a left below-knee amputation and right foot in a dressing. HOSPITAL COURSE: This is a 65-year-old female, who had a very lengthy hospital stay since April 27. She presented initially with shortness of breath. She is also with severe vasculopathy. She underwent left below-knee amputation in March 2020. Followup, she saw Dr. Hairston just a week before current admission. She also noted to have right 4th digit gangrene. For that, she went through angioplasty and then later on to femoral to popliteal artery bypass graft that was placed on May 10. Post procedure, she recovered well. She also had type 2 diabetes mellitus. She also has type 2 diabetes mellitus with A1c of 6.5. She is on scheduled insulin with the Lantus as well as sliding scale. Blood glucose is relatively controlled. Hypertension. The patient is on Coreg and on low doses. She was also on Norvasc, but that has been discontinued due to her consistently on the low side of the normal blood pressure. The patient will be going to the rehab today. She will follow up with Dr. Segundo in 2 weeks' time. DISCHARGE INSTRUCTIONS: Activity with supervision. Diabetic diet. Follow up with the primary care physician in 1 week after the rehab. Follow up with Dr. Segundo in 2 weeks per their clinic appointment. Discharge time took 35 minutes. Job ID: [id number]
== END 2020-05-13 15:05 | DRG 239 ==
LOC: ERS 12:10 → 2NO 17:01 → CCU 23:14 → IMCU/EMU 04-29 15:42 → SURG A 05-05 16:04 → CCU 05-10 15:07 → SURG A 05-11 10:33
PROVIDERS: ADMIT Family Medicine; ATTEND Family Medicine
PROC: 5A09457 Assistance with Respiratory Ventilation, 24-96 Consecutive Hours, Continuous Positive Airway Pressure (ICD-10-PCS; 2020-04-28)
PROC: 0Y6D0Z1 Detachment at Left Upper Leg, High, Open Approach (ICD-10-PCS; principal; 2020-05-04)
PROC: B41D1ZZ Fluoroscopy of Aorta and Bilateral Lower Extremity Arteries using Low Osmolar Contrast (ICD-10-PCS; 2020-05-05)
PROC: 041K0JL Bypass Right Femoral Artery to Popliteal Artery with Synthetic Substitute, Open Approach (ICD-10-PCS; 2020-05-10)
PROC: 04CK0ZZ Extirpation of Matter from Right Femoral Artery, Open Approach (ICD-10-PCS; 2020-05-10)
PROC: 04CM0ZZ Extirpation of Matter from Right Popliteal Artery, Open Approach (ICD-10-PCS; 2020-05-10)
DX: I13.0 Hypertensive heart and chronic kidney disease with heart failure and stage 1 through stage 4 chronic kidney disease, or unspecified chronic kidney disease (principal); I21.A1 Myocardial infarction type 2; J96.21 Acute and chronic respiratory failure with hypoxia; I50.43 Acute on chronic combined systolic (congestive) and diastolic (congestive) heart failure; N17.9 Acute kidney failure, unspecified; J44.1 Chronic obstructive pulmonary disease with (acute) exacerbation; E11.52 Type 2 diabetes mellitus with diabetic peripheral angiopathy with gangrene; I96 Gangrene, not elsewhere classified; Z20.828 Contact with and (suspected) exposure to other viral communicable diseases; T87.81 Dehiscence of amputation stump; Y83.8 Other surgical procedures as the cause of abnormal reaction of the patient, or of later complication, without mention of misadventure at the time of the procedure; I25.10 Atherosclerotic heart disease of native coronary artery without angina pectoris; E78.5 Hyperlipidemia, unspecified; E78.00 Pure hypercholesterolemia, unspecified; F41.9 Anxiety disorder, unspecified; F32.9 Major depressive disorder, single episode, unspecified; E11.22 Type 2 diabetes mellitus with diabetic chronic kidney disease; E11.42 Type 2 diabetes mellitus with diabetic polyneuropathy; N18.9 Chronic kidney disease, unspecified; E66.01 Morbid (severe) obesity due to excess calories; Z89.512 Acquired absence of left leg below knee; Z87.891 Personal history of nicotine dependence; Z79.82 Long term (current) use of aspirin; Z79.4 Long term (current) use of insulin; Z79.899 Other long term (current) drug therapy; Z99.81 Dependence on supplemental oxygen; Z68.37 Body mass index [BMI] 37.0-37.9, adult; Z91.19 Patient's noncompliance with other medical treatment and regimen
CPT/HCPCS: 36246; 36415; 36416; 71045; 75625; 75716; 76942; 80048; 80053; 81001; 82550; 82553; 82805; 82947; 83036; 83605; 83735; 83880; 84443; 84484; 85025; 85610; 85730; 86850; 86900; 86901; 87040; 87635; 88307; 93005; 93306; 94640; 94660; 94664; 96372; 96374; 96375; 99152; J0696; J1100; J1644; J1650; J1815; J1940; J2001; J2250; J2405; J2704; J2720; J2920; J2930; J3010; J3370; J3475; J3490; J7512; J7620; J7626; L8460; Q9967; U0003

== ENCOUNTER 2020-06-28 11:20 | Outpatient (CLI) | payer MEDICARE ==
[2020-06-28 12:28] LABS: #Basophils 0.1 10x3/uL (0.0-0.2); #Eosinphils 1.1 10x3/uL (0.0-0.5); #Monocytes 0.7 10x3/uL (0.0-1.1); %Basophils 0.8 % (0.0-2.0); %Eosinophils 9.6 % (0.0-6.0); %Monocytes 5.8 % (0.0-10.0); Hemoglobin 10.2 g/dL (12.0-16.0); Mean Corpuscular HGB CONC 29.5 G/DL (32.0-36.0); Mean Corpuscular Hemoglobin 27.6 PG (27.0-33.0); Mean Corpuscular Volume 93.8 fl (80.0-100.0); Mean Platelet Volume 10.4 fl (7.4-10.4); Platelet Count 251 10x3/uL (130-400); RBC Distribution Width 15.5 % (11.5-14.5); Red Blood Cell (RBC) Count 3.69 10x6/uL (3.90-5.20); White Blood Cell (WBC) Count 11.6 10x3/uL (4.5-11.0)
[2020-06-28 12:36] LABS: Anion Gap 16 mmol/L (10-20); BUN (Urea Nitrogen) 26 mg/dL (9.8-20.1); Calc. Creatinine Clearance 0 mL/min (70-130); Calcium 8.5 mg/dL (7.8-10.44); Carbon Dioxide 28 mmol/L (23-31); Chloride 106 mmol/L (98-107); Estimated GFR-MDRD 32; Glucose 131 mg/dL (80-115); Potassium 4.7 mmol/L (3.5-5.1); Sodium 145 mmol/L (136-145)
[2020-06-28 12:50] LABS: Hypochromia SLIGHT = 6-15 cells (100X) (0-5/hpf)
[2020-06-28 12:51] LABS: Large Platelets SLIGHT; Platelet Morphology Comment Appears Adequate
[2020-06-28 17:15] LABS: SARS-CoV-2 MS2 Positive; SARS-CoV-2 N Gene Negative; SARS-CoV-2 S Gene Negative; SARS-CoV-2 by NAA Not Detected (NotDetected); SARS-CoV-2 orf1ab Negative
== END 2020-06-28 11:21 | disposition home or self-care (01) ==
LOC: LABBT 11:20
PROVIDERS: ATTEND Specialist
DX: Z01.812 Encounter for preprocedural laboratory examination (principal); Z20.828 Contact with and (suspected) exposure to other viral communicable diseases
CPT/HCPCS: 80048; 85025; U0003; 87635

== ENCOUNTER 2020-07-01 06:58 | Day surgery (SDC) | payer MEDICARE ==
[2020-06-28 15:04] VITALS: BMI 35.0
--- NOTE | 2020-06-29 08:19 | HP ---
HISTORY OF PRESENT ILLNESS: Nilda Menendez is a 65-year-old female, status post left BKA, has severe PAD, has had a right [id number] femoral popliteal artery bypass by Dr. Eyal Segundo. She had a dry gangrene of the right 4th toe. She reports to the office today and has some purulent discharge from that toe with some mild redness. We started her on Bactrim and Cipro for 10 days. Plan is amputation of right 4th toe with primary closure as an outpatient later this week. She understands risks and benefits of procedure and consents. MEDICATIONS: 1. Aspirin. 2. Insulin. 3. Multivitamins. 4. MiraLAX. 5. Citalopram. 6. Albuterol. 7. Gabapentin. 8. Metformin. PAST MEDICAL HISTORY: Diabetes mellitus, anxiety, COPD, and PAD. PAST SURGICAL HISTORY: Hysterectomy, vascular stents, left femoral-popliteal, right femoral-popliteal, left tibial plateau ORIF, left BKA 03/08/2020, converted to AKA May 04, 2020. FAMILY HISTORY: Unknown. REVIEW OF SYSTEMS: Noncontributory. PHYSICAL EXAMINATION: HEAD, EARS, EYES, NOSE, AND THROAT: Unremarkable. LUNGS: Clear to auscultation. CARDIAC: Regular rate and rhythm without murmur, rub, or gallop. ABDOMEN: Soft, nontender, obese. EXTREMITIES: Palpable femoral pulses and popliteal pulses. Left AKA well healed. Right 4th toe reveals gangrene distal 2/3 with some mild purulent discharge and slight redness. ASSESSMENT AND PLAN: Severe peripheral arterial disease, status post right [id number] femoral-popliteal, status post left [id number] amputation. We will plan amputation of the right 4th toe through the proximal phalanx, hopefully primary closure. She will be on Cipro and Bactrim until we can perform that later this week. She understands risks and benefits, consents. Job ID: [id number]
[2020-07-01] MEDS ORDERED: cefTRIAXone\\ROCEPHIN 2 GM in Sodium Chloride 0.9% 100 ML IVPB SCH (07:45)
[2020-07-01] MEDS ORDERED: Sodium Chloride 0.9% 100 ML ONE (08:27)
[2020-07-01] MEDS ORDERED: Acetaminophen 500 MG TAB ONE (08:27)
[2020-07-01] MEDS ORDERED: cefTRIAXone\\ROCEPHIN 2 GM VIAL ONE (08:27)
[2020-07-01] MEDS ORDERED: Ketorolac Tromethamine 30 MG/ML VIAL ONE (08:27)
[2020-07-01] MEDS ORDERED: Fentanyl 100 MCG/2 ML VIAL ONE (10:20)
[2020-07-01] MEDS ORDERED: Midazolam HCl 2 mg/2 ml Vial ONE (10:20)
[2020-07-01] MEDS ORDERED: PROPOFOL 200 MG/20 ML VIAL ONE (10:36)
--- NOTE | 2020-07-01 11:18 | OP ---
DATE OF PROCEDURE: 07/01/2020 PREOPERATIVE DIAGNOSES: Peripheral arterial disease, right 4th toe gangrene, status post intervention for improving her vascularization. POSTOPERATIVE DIAGNOSES: Peripheral arterial disease, right 4th toe gangrene, status post intervention for improving her vascularization. PROCEDURE PERFORMED: Amputation of right 4th toe through the proximal phalanx with primary closure and good bleeding. ANESTHESIA: TIVA. DESCRIPTION OF PROCEDURE: The patient was taken to the operating room, where under intravenous sedation, her right lower extremity was prepared with Betadine and draped in routine fashion. Amputation through the proximal phalanx of right 4th toe performed. skin and subcutaneous tissue incision, resecting the proximal phalanx proximally with the rongeurs, debriding connective tissue. Good bleeding noted. Wound irrigated. Subcutaneous tissue was approximated with 4-0 Monocryl, skin with 4-0 Prolene. Sterile dressing applied. Job ID: [id number]
== END 2020-07-01 12:10 | disposition home or self-care (01) ==
LOC: SDC 06:58
PROVIDERS: ATTEND Specialist
PROC: 0QBQ0ZZ Excision of Right Toe Phalanx, Open Approach (ICD-10-PCS; principal; 2020-07-01)
PROC: 0HTRXZZ Resection of Toe Nail, External Approach (ICD-10-PCS; 2020-07-01)
DX: E11.52 Type 2 diabetes mellitus with diabetic peripheral angiopathy with gangrene (principal); I96 Gangrene, not elsewhere classified; F41.9 Anxiety disorder, unspecified; J44.9 Chronic obstructive pulmonary disease, unspecified; Z79.4 Long term (current) use of insulin; Z79.82 Long term (current) use of aspirin; Z79.899 Other long term (current) drug therapy; Z89.612 Acquired absence of left leg above knee; Z88.5 Allergy status to narcotic agent
CPT/HCPCS: 36416; J0696; J1885; J2250; J3010; J3370; J3490; J7030

== ENCOUNTER 2020-10-02 22:30 | Emergency (ER) | payer MEDICARE ==
[~2020-10-02 22:30] MED LIST: Amiodarone 150 MG/3 ML VIAL ONE; Atropine Sulfate 1 mg/10 ml Syringe ONE; EPINEPHrine 1 MG/10 ML Abboject SYRINGE ONE; Sodium Bicarb 50 MEQ/50 ML Abboject 8.4% SYRINGE ONE
--- NOTE | 2020-10-02 23:08 | RAD ---
Exam: Chest one view HISTORY:Chest pain Comparison: 05/11/2020 FINDINGS: Cardiac silhouette:Cardiomegaly. Aorta: Unremarkable Pulmonary vessels: Normal Costophrenic angles: Clear LUNGS: Chronic changes of the lung parenchyma. Hyperinflation is noted. No mass or consolidation. Pneumothorax: None Osseous abnormalities: None IMPRESSION: 1. Cardiomegaly. No evidence of congestive heart failure 2. Hyperinflation with chronic changes of the lung parenchyma.
[2020-10-02 23:31] LABS: #Basophils 0.1 thou/uL (0.0-0.2); #Eosinphils 0.3 thou/uL (0.0-0.7); #Lymphocytes 2.2 thou/uL (1.20-3.40); #Monocytes 0.8 thou/uL (0.11-0.59); %Basophils 0.6 % (0.0-1.0); %Eosinophils 2.6 % (0.0-10.0); %Lymphocytes 19.7 % (21.0-51.0); %Monocytes 6.8 % (0.0-10.0); %Neutrophils 70.3 % (42.0-75.0); Hemoglobin 11.9 g/dL (12.0-16.0); Mean Corpuscular HGB CONC 33.4 g/dL (32.0-36.0); Mean Corpuscular Hemoglobin 30.4 pg (27.0-31.0); Mean Corpuscular Volume 90.9 fL (78.0-98.0); Mean Platelet Volume 9.8 fL (7.4-10.4); Platelet Count 191 thou/uL (130-400); RBC Distribution Width 13.7 % (11.5-14.5); Red Blood Cell (RBC) Count 3.93 mill/uL (4.20-5.40); White Blood Cell (WBC) Count 11.3 thou/uL (4.8-10.8)
[2020-10-02] MEDS ORDERED: Nitroglycerin 2% Ointment 1 INCH/1 GM Packet ONE (23:50)
[2020-10-02] MEDS ORDERED: Morphine 4 MG/ML VIAL ONE (23:50)
[2020-10-02] MEDS ORDERED: Ondansetron PF 4 MG/2 ML Vial ONE (23:51)
[2020-10-03 00:04] LABS: ALT (SGPT) 10 U/L (8-55); AST (SGOT) 12 U/L (5-34); Albumin 3.3 g/dL (3.4-4.8); Alkaline Phosphatase 110 U/L (40-110); Anion Gap 15 mmol/L (10-20); BUN (Urea Nitrogen) 26 mg/dL (9.8-20.1); Bilirubin, Total 0.2 mg/dL (0.2-1.2); Calc. Creatinine Clearance 0 mL/min (70-130); Calcium 8.8 mg/dL (7.8-10.44); Carbon Dioxide 24 mmol/L (23-31); Chloride 101 mmol/L (98-107); Potassium 4.8 mmol/L (3.5-5.1); Protein, Total 6.3 g/dL (5.8-8.1); Sodium 135 mmol/L (136-145)
[2020-10-03 00:07] LABS: Glucose 596 mg/dL (80-115)
[2020-10-03 00:25] LABS: CKMB 4.3 ng/mL (0-6.6)
[2020-10-03] MEDS ORDERED: Succinylcholine 200 MG/10 ml SYRINGE FS ONE (00:32)
[2020-10-03] MEDS ORDERED: Lidocaine 1% (PF) 30 ML VIAL ONE (00:55)
[2020-10-03] MEDS ORDERED: Fentanyl 100 MCG/2 ML VIAL ONE (00:55)
[2020-10-03] MEDS ORDERED: Fentanyl CADD 100 ML IV SCH (01:15)
[2020-10-03] MEDS ORDERED: EPINEPHrine 1 MG/10 ML Abboject SYRINGE ONE (01:20)
[2020-10-03] MEDS ORDERED: EPINEPHrine 1 MG/ML AMP ONE (01:21)
--- NOTE | 2020-10-03 02:26 | CON ---
DATE OF CONSULTATION: PRIMARY MANAGER RECRUITING: Ashu Phipps MD HISTORY OF PRESENT ILLNESS: I was called for what appeared to be PEA arrest versus VFib arrest. Mrs. Menendez came into the ER feeling chest pain. She states she has been feeling chest pain for some time now, but this time her pain was relentless, was a lot worse than what she had experienced in the past and it was not improving. She came in and received morphine. Her pain improved briefly and then suddenly she started to become bradycardic and had a PEA arrest. Chest compressions were done. She received epinephrine and eventually regained pulse. She then was intubated to protect her airway and again became bradycardic and eventually lost her pulse again, went into PEA arrest. She started to have CPR chest compressions once again with atropine and epinephrine given. She then had a VFib briefly, for which she was shocked out of and she came out of her VFib and had a perfusable rhythm. At that time, EKG was performed that shows some ST changes concerning for ischemia. On my evaluation, her EKG is consistent with what would appear to be global ischemia. She has ST elevation in AVR and diffuse ST depressions, and she is starting to have some ST elevation on the anterior leads, which could be related to the VFib arrest versus left main disease into the LAD. I called the labor relations teacher in and we were getting ready to take her up stairs when she had a bradycardia again and we lost her pulse, so we had to continue chest compressions and CPR for about four more rounds. She eventually regained a pulse, however. I went to talk with her family, which was her daughter and grandson, as well as the daughter's and they came to bedside to see her. As soon as they stepped out, she again became bradycardic and started to code again. She was coded for about an hour and a half. We did a bedside echocardiogram that showed absolutely no cardiac activity whatsoever, just pulses electrical activity. Time of was called and family was updated. 90 minutes of critical care time. Job ID: [id number]
--- NOTE | 2020-10-03 07:57 | RAD ---
Portable frontal chest radiograph: 10/03/2020 COMPARISON: 10/02/2020 HISTORY: Intermittent chest pain FINDINGS: There is a new endotracheal tube in proper position. New nasogastric tube extends into the left upper quadrant. Stable prominence of the cardiac silhouette. Supine imaging limits assessment for pneumothorax and pleural fluid. There is mild nonspecific linear density in the perihilar regions and both lung bases. No focal consolidation or alveolar edema. IMPRESSION: Portable chest radiograph as detailed above.
== END 2020-10-03 01:48 | disposition expired ==
LOC: ERS 22:30
DX: I46.9 Cardiac arrest, cause unspecified (principal); I25.110 Atherosclerotic heart disease of native coronary artery with unstable angina pectoris; I10 Essential (primary) hypertension; E78.5 Hyperlipidemia, unspecified; E78.00 Pure hypercholesterolemia, unspecified; J44.9 Chronic obstructive pulmonary disease, unspecified; E11.9 Type 2 diabetes mellitus without complications; I25.2 Old myocardial infarction; Z87.891 Personal history of nicotine dependence; Z79.4 Long term (current) use of insulin; Z79.82 Long term (current) use of aspirin; Z79.899 Other long term (current) drug therapy
CPT/HCPCS: 31500; 51702; 71045 ×2; 80053; 82553; 82962; 84484; 85025; 92950; 93005 ×2; 94002; 96365; 96368; 96374; 96375; 96376; 99285; J3010; 36415; 36416; J0171; J0282; J0461; J1644; J2001; J2270; J2405